=== PATIENT | female | born 1980 | race American Indian/Alaskan Native ===

== ENCOUNTER 2016-11-05 08:50 | Emergency (ER) | payer BC, OTHER ==
[2016-11-05 09:02] VITALS: BP 110/90
--- NOTE | 2016-11-05 09:22 | EDM.PDOC ---
ED HPI GENERAL MEDICAL PROBLEM - General Chief Complaint: Back Pain or Injury Stated Complaint: [id number] BACK PAIN Time Seen by Provider: 11/05/16 09:16 Source of Information: Reports: Patient, Old Records, RN History Limitations: Reports: No Limitations - History of Present Illness INITIAL COMMENTS - FREE TEXT/NARRATIVE: "Lower lumbar and the middle. I can't get the cramps to go away, started yesterday when I got out of bed." Having low back pain with radiation down left buttock to left posterior thigh. She has seen a surgeon at [facility] in [facility] where she was advised to have an L4 fusion. She says her surgeon said that ice or heat could exacerbate the pain. No bowel or bladder problems. She took both Vicodin and Tramedol this morning. Describes muscle spasms. Pain worsened with movement. Has had fusion on the right L4 at [facility] and seems to describe an anterior / posterior approach. 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 Medication(s) (Vicodine and Tramedol) Lower Back Pain Score (Numeric/FACES): 3 - Related Data Allergies Allergy/AdvReac Type Severity Reaction Status Date / Time morphine Allergy Rash Verified 11/05/16 09:02 Home Meds: Home Meds Acetaminophen [Tylenol Extra Strength] 1,000 mg PO TID PRN #30 tab 12/06/14 [Rx] traMADol HCl [Tramadol HCl] 50 mg PO ASDIRECTED PRN 02/27/15 [History] Hydrocodone/Acetaminophen [Lorcet 5-325 mg Tablet] 1 each PO ASDIRECTED PRN [History] Past Medical History HEENT History: Reports: Impaired Vision Other HEENT History: wears glasses 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, preeclampsia current 2014 Respiratory History: Reports: None Other Gastrointestinal History: abdominal hernia Genitourinary History: Reports: None Other OB/BYN History: limited prenataal care 7 , 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 Musculoskeletal History: Reports: None Neurological History: Reports: None Psychiatric History: Reports: None Endocrine/Metabolic History: Reports: None Hematologic History: Reports: None Immunologic History: Reports: None Oncologic (Cancer) History: Reports: None Dermatologic History: Reports: None - Infectious Disease History Infectious Disease History: Reports: Chicken Pox - Past Surgical History Head Surgeries/Procedures: Reports: None Social & Family History - Tobacco Use Smoking Status *Q: Current Every Day Smoker Years of Tobacco use: 3 Packs/Tins Daily: 0.5 Used Tobacco, but Quit: No Month Tobacco Last Used: 11/24/2014 Second Hand Smoke Exposure: No - Caffeine Use Caffeine Use: Reports: Coffee, Soda - Alcohol Use Days Per Week of Alcohol Use: 0 - Recreational Drug Use Recreational Drug Use: No - Living Situation & Occupation Living situation: Reports: with Family Occupation: Unemployed ED ROS GENERAL - Review of Systems Review Of Systems: See Below Constitutional: Reports: No Symptoms HEENT: Reports: No Symptoms Respiratory: Reports: No Symptoms (no other comment) GI/Abdominal: Reports: No Symptoms. Denies: Stool Incontinence : Denies: Incontinence Skin: Reports: No Symptoms Neurological: Reports: Difficulty Walking. Denies: Headache, Weakness Psychiatric: Reports: No Symptoms Hematologic/Lymphatic: Reports: No Symptoms Immunologic: Reports: No Symptoms ED EXAM,LOWER BACK PAIN/INJURY - Physical Exam Exam: See Below Exam Limited By: No Limitations General Appearance: Alert, WD/WN, No Apparent Distress Eye Exam: Bilateral Eye: Normal Inspection Head: Atraumatic Back Exam: Decreased Range of Motion, Muscle Spasm, Paraspinal Tenderness, Vertebral Tenderness, Other (AROM to 10 degrees flexion, extension, side bending. decreased sensation to light touch Left leg throghout and on left thigh posterior). No: Full Range of Motion Extremities: Normal Inspection, No Pedal Edema. No: Non-Tender Course - Vital Signs Last Recorded V/S: Last Vital Signs Temp 97.8 F 11/05/16 08:56 Pulse 73 11/05/16 08:56 Resp 16 11/05/16 08:56 BP 110/90 11/05/16 08:56 Pulse Ox 100 11/05/16 08:56 Departure - Departure Time of Disposition: 09:44 Disposition: Home, Self-Care 01 Condition: good Clinical Impression: Sciatica Qualifiers: Laterality: left Qualified Code(s): M54.32 - Sciatica, left side - Discharge Information Instructions: Back Injury Prevention, [id number], Pain Medicine Instructions , [id number], Back Pain, Adult, [id number] Additional Instructions: Take Flexeril 10 mg tablet three times a day as needed for back spasms. 30 tablets prescribed. See your doctor this coming 7-10 days
== END 2016-11-05 09:52 | disposition home or self-care (01) ==
LOC: DL.ED 08:50
DX: M54.32 Sciatica, left side (principal); F17.210 Nicotine dependence, cigarettes, uncomplicated; Z79.899 Other long term (current) drug therapy; H54.7 Unspecified visual loss
CPT/HCPCS: 99283

== ENCOUNTER 2017-01-27 08:32 | Emergency (ER) | payer OTHER ==
[2017-01-27 09:06] VITALS: BP 148/81
[2017-01-27] MEDS ORDERED: Tetracaine HCl/PF 0.5% 4 ML Bottle EYERT ONE (09:13)
--- NOTE | 2017-01-27 09:13 | EDM.PDOC ---
ED HPI GENERAL MEDICAL PROBLEM - General Chief Complaint: Eye Problems Stated Complaint: RIGHT EYE [phone] Time Seen by Provider: 01/27/17 09:08 Source of Information: Reports: Patient History Limitations: Reports: No Limitations - History of Present Illness INITIAL COMMENTS - FREE TEXT/NARRATIVE: C/O sawdust in Rt eye at about 7PM on Monday01/25/17. Pt flushed the eye with baby shampoo. Now c/o eye irritation and tearing when she tries to open it. Denies purulent drainage. 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 Treatments Right Eye Pain Score (Numeric/FACES): 8 - Related Data Allergies Allergy/AdvReac Type Severity Reaction Status Date / Time morphine Allergy Rash Verified 01/27/17 09:00 Home Meds: Home Meds traMADol HCl [Tramadol HCl] 50 mg PO ASDIRECTED PRN 02/27/15 [History] Acetaminophen [Tylenol Extra Strength] 1,000 mg PO DAILY PRN 01/27/17 [History] Past Medical History HEENT History: Reports: Impaired Vision Other HEENT History: wears glasses 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, preeclampsia current 2014 Respiratory History: Reports: None Other Gastrointestinal History: abdominal hernia Genitourinary History: Reports: None Other OB/BYN History: limited prenataal care 7 , 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 Musculoskeletal History: Reports: None Neurological History: Reports: None Psychiatric History: Reports: None Endocrine/Metabolic History: Reports: None Hematologic History: Reports: None Immunologic History: Reports: None Oncologic (Cancer) History: Reports: None Dermatologic History: Reports: None - Infectious Disease History Infectious Disease History: Reports: Chicken Pox - Past Surgical History Head Surgeries/Procedures: Reports: None Social & Family History - Family History Family Medical History: Noncontributory - Tobacco Use Smoking Status *Q: Current Every Day Smoker Years of Tobacco use: 4 Packs/Tins Daily: 0.5 Used Tobacco, but Quit: No Month Tobacco Last Used: 11/24/2014 Second Hand Smoke Exposure: No - Caffeine Use Caffeine Use: Reports: Coffee, Soda - Alcohol Use Days Per Week of Alcohol Use: 0 - Recreational Drug Use Recreational Drug Use: No - Living Situation & Occupation Living situation: Reports: with Family Occupation: Unemployed ED ROS GENERAL - Review of Systems Review Of Systems: ROS reveals no pertinent complaints other than HPI. ED EXAM GENERAL W FULL EYE - Physical Exam Exam: See Below Exam Limited By: No Limitations General Appearance: Alert, WD/WN, No Apparent Distress, Obese Eye Exam: Right Eye: Conjunctival Injection, Corneal Abrasion, Normal Fundi, Left Eye: Normal Inspection, Bilateral Eye: EOMI, PERRL Eyelids: Right: Lid Everted for Exam, Bilateral: Normal Appearance Conjunctiva & Sclera: Right: Injected, Left: Normal Appearance Cornea Exam: Right: Corneal Abrasion, Examined with Flourescein, Left: Normal Appearance Extraocular Movements: Bilateral: Intact Pupils: Normal Accommodation Pupillary Size: Bilateral: 3 mm Pupillary Reaction: Bilateral: Brisk Anterior Chamber: Right: Normal Appearance Ears: Normal External Exam, Hearing Grossly Normal Nose: Normal Inspection Throat/Mouth: Normal Inspection Head: Atraumatic, Normocephalic Respiratory/Chest: No Respiratory Distress Neurological: Alert, Oriented, CN II-XII Intact, Normal Cognition, Normal Gait, No Motor/Sensory Deficits Psychiatric: Normal Affect, Normal Mood Skin Exam: Warm, Dry, Intact, Normal Color, No Rash ED EYE w/ Add Procedure - Eye Procedure Alcaine Drops Administered: Yes Eye FB Removal: Other (no FB present) Antibiotic Oinment/Drps Admin: Right Eye Progress: Rt eye pressure patch applied for comfort. Course - Vital Signs Last Recorded V/S: Last Vital Signs Temp 36.3 C 01/27/17 08:56 Pulse 71 01/27/17 08:56 Resp 16 01/27/17 08:56 BP 148/81 H 01/27/17 09:06 Pulse Ox 100 01/27/17 08:56 - Orders/Labs/Meds Meds: Medications Discontinued Medications Generic Name Dose Route Start Last Admin Trade Name Freq PRN Reason Stop Dose Admin Fluorescein Sodium 1 mg 01/27/17 09:14 01/27/17 09:22 Ful-Carly EYERT 01/27/17 09:15 1 mg ONETIME ONE Administration Gentamicin Sulfate 1 ml 01/27/17 09:14 01/27/17 09:21 Garamycin 0.3% Ophth Soln EYERT 01/27/17 09:15 1 ml ONETIME ONE Administration Ibuprofen 800 mg 01/27/17 09:32 Motrin PO 01/27/17 09:33 ONETIME ONE Tetracaine HCl 1 ml 01/27/17 09:13 01/27/17 09:22 Tetracaine 0.5% Steri-Unit Stephanie EYERT 01/27/17 09:14 1 ml ONETIME ONE Administration Tramadol HCl 50 mg 01/27/17 09:32 Ultram PO 01/27/17 09:33 ONETIME ONE Departure - Departure Time of Disposition: 09:34 Disposition: Home, Self-Care 01 Condition: Good Clinical Impression: Corneal abrasion Qualifiers: Encounter type: initial encounter Laterality: right Qualified Code(s): S05.01XA - Injury of conjunctiva and corneal abrasion without foreign body, right eye, initial encounter - Discharge Information Instructions: Corneal Abrasion, Tofo-[id number] Forms: ED Department Discharge Additional Instructions: Gentamicin ophthalmic solution 0.3%: 1 drop into right eye four times a day for 5 days. Follow up in eye clinic in 1 to 2 days for recheck.
[2017-01-27] MEDS ORDERED: Gentamicin 0.3% Ophth Soln 5 ML Bottle EYERT ONE (09:14)
[2017-01-27] MEDS ORDERED: Fluorescein 1 MG Ophth Strip EYERT ONE (09:14)
[2017-01-27] MEDS ORDERED: traMADol 50 MG Tab PO ONE (09:32)
[2017-01-27] MEDS ORDERED: Ibuprofen 800 MG Tab PO ONE (09:32)
== END 2017-01-27 09:48 | disposition home or self-care (01) ==
LOC: DL.ED 08:32
DX: S05.01XA Injury of conjunctiva and corneal abrasion without foreign body, right eye, initial encounter (principal); F17.210 Nicotine dependence, cigarettes, uncomplicated; Z79.899 Other long term (current) drug therapy; Z88.5 Allergy status to narcotic agent; Z98.890 Other specified postprocedural states; W45.8XXA Other foreign body or object entering through skin, initial encounter
CPT/HCPCS: 99283; A9270

== ENCOUNTER 2017-11-26 14:51 | Emergency (ER) | payer OTHER ==
--- NOTE | 2017-11-26 15:09 | EDM.PDOC ---
ED HPI GENERAL MEDICAL PROBLEM - General Chief Complaint: Eye Problems Stated Complaint: LEFT EYE, SOMETHING IN IT Time Seen by Provider: 11/26/17 15:08 Source of Information: Reports: Patient, RN, RN Notes Reviewed History Limitations: Reports: No Limitations - History of Present Illness INITIAL COMMENTS - FREE TEXT/NARRATIVE: Pt c/o dust or dirt got into left eye yesterday while shaking out a rug. Pt states she rubbed the eye, and today it's worse. Denies any other injury. 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, Other Medication(s) Left Eye Pain Score (Numeric/FACES): 9 - Related Data Allergies Allergy/AdvReac Type Severity Reaction Status Date / Time morphine Allergy Rash Verified 01/27/17 09:00 Home Meds: Home Meds traMADol HCl [Tramadol HCl] 50 mg PO ASDIRECTED PRN 02/27/15 [History] Acetaminophen [Tylenol Extra Strength] 1,000 mg PO DAILY PRN 01/27/17 [History] Past Medical History HEENT History: Reports: Impaired Vision Other HEENT History: wears glasses 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, preeclampsia current 2014 Respiratory History: Reports: None Other Gastrointestinal History: abdominal hernia Genitourinary History: Reports: None Other OB/BYN History: limited prenataal care 7 , 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 Musculoskeletal History: Reports: None Neurological History: Reports: None Psychiatric History: Reports: None Endocrine/Metabolic History: Reports: None Hematologic History: Reports: None Immunologic History: Reports: None Oncologic (Cancer) History: Reports: None Dermatologic History: Reports: None - Infectious Disease History Infectious Disease History: Reports: Chicken Pox - Past Surgical History Head Surgeries/Procedures: Reports: None Social & Family History - Family History Family Medical History: Noncontributory - Caffeine Use Caffeine Use: Reports: Coffee, Soda - Living Situation & Occupation Living situation: Reports: with Family Occupation: Unemployed ED ROS GENERAL - Review of Systems Review Of Systems: ROS reveals no pertinent complaints other than HPI. ED EXAM GENERAL W FULL EYE - Physical Exam Exam: See Below Exam Limited By: No Limitations General Appearance: Alert, WD/WN, No Apparent Distress Eye Exam: Right Eye: Normal Inspection, Left Eye: Conjunctival Injection, Corneal Abrasion, Bilateral Eye: EOMI, Normal Fundi, PERRL Eyelids: Bilateral: Normal Appearance Conjunctiva & Sclera: Right: Normal Appearance, Left: Injected Cornea Exam: Left: Corneal Abrasion, Examined with Flourescein Extraocular Movements: Bilateral: Intact Pupils: Normal Accommodation Pupillary Size: Bilateral: 3 mm Pupillary Reaction: Bilateral: Brisk Anterior Chamber: Bilateral: Normal Appearance Head: Atraumatic, Normocephalic Respiratory/Chest: No Respiratory Distress Cardiovascular: Regular Rate, Rhythm, Tachycardia Neurological: Alert, Oriented, CN II-XII Intact, No Motor/Sensory Deficits Psychiatric: Anxious Skin Exam: Warm, Dry, Intact, Normal Color, No Rash ED EYE w/ Add Procedure - Eye Procedure Alcaine Drops Administered: Yes Eye FB Removal: no Removal w/ Cotton Swab, no Removal w/ Needle, no Other Antibiotic Oinment/Drps Admin: Left Eye Progress: No FB present in left eye. Course - Vital Signs Last Recorded V/S: Last Vital Signs Temp 36.9 C 11/26/17 15:10 Pulse 111 H 11/26/17 15:10 Resp 20 11/26/17 15:10 BP 149/78 H 11/26/17 15:10 Pulse Ox 100 11/26/17 15:10 - Orders/Labs/Meds Meds: Medications Discontinued Medications Generic Name Dose Route Start Last Admin Trade Name Caseyq PRN Reason Stop Dose Admin Fluorescein Sodium 1 mg 11/26/17 15:30 11/26/17 16:05 Ful-Carly EYELF 11/26/17 15:31 1 mg ONETIME ONE Administration Gentamicin Sulfate 1 ml 11/26/17 15:30 11/26/17 16:05 Garamycin 0.3% Ophth Soln EYELF 11/26/17 15:31 1 ml ONETIME ONE Administration Ibuprofen 800 mg 11/26/17 15:33 11/26/17 16:05 Motrin PO 11/26/17 15:34 800 mg ONETIME ONE Administration Tetracaine HCl 1 ml 11/26/17 15:29 11/26/17 16:05 Tetracaine 0.5% Steri-Unit Stephanie EYELF 11/26/17 15:30 1 ml ONETIME ONE Administration Departure - Departure Time of Disposition: 16:21 Disposition: Home, Self-Care 01 Condition: Good Clinical Impression: Corneal abrasion Qualifiers: Encounter type: initial encounter Laterality: left Qualified Code(s): S05.02XA - Injury of conjunctiva and corneal abrasion without foreign body, left eye, initial encounter - Discharge Information Instructions: Corneal Abrasion, [id number] Forms: ED Department Discharge Additional Instructions: Rx: Tylenol Codeine No.3 *Do not drive while under the influence of this medication. Rx: Ibuprofen 600mg *Take with food. Gentamicin Ophthalmic Solution 0.3%: 1 drop in left eye four times a day for 5 days. Do not rub your eye. Follow up at the eye clinic in 1 to 2 days for recheck.
[2017-11-26 15:12] VITALS: BP 149/78
[2017-11-26] MEDS ORDERED: Tetracaine HCl/PF 0.5% 4 ML Bottle EYELF ONE (15:29)
[2017-11-26] MEDS ORDERED: Fluorescein 1 MG Ophth Strip EYELF ONE (15:30)
[2017-11-26] MEDS ORDERED: Gentamicin 0.3% Ophth Soln 5 ML Bottle EYELF ONE (15:30)
[2017-11-26] MEDS ORDERED: Ibuprofen 800 MG Tab PO ONE (15:33)
== END 2017-11-26 16:29 | disposition home or self-care (01) ==
LOC: DL.ED 14:51
DX: S05.02XA Injury of conjunctiva and corneal abrasion without foreign body, left eye, initial encounter (principal); Z88.5 Allergy status to narcotic agent; Z79.899 Other long term (current) drug therapy; X58.XXXA Exposure to other specified factors, initial encounter
CPT/HCPCS: 99283; A9270

== ENCOUNTER 2018-03-30 19:39 | Emergency (ER) | payer OTHER ==
--- NOTE | 2018-03-30 20:28 | EDM.PDOC ---
ED HPI GENERAL MEDICAL PROBLEM - General Chief Complaint: Respiratory Problem Stated Complaint: CHEST,HARD TO BREATH [id number] Time Seen by Provider: 03/30/18 20:10 Source of Information: Reports: Patient History Limitations: Reports: No Limitations - History of Present Illness INITIAL COMMENTS - FREE TEXT/NARRATIVE: C/o of severe sore throat burning, cough, vomiting for one week. Spouse states whole family has had similar symptoms past week but she has been the worst. Denies hx asthma, smoker 1/2 pack per day. Bp meds in past, none for past couple of years. Tolerating liquids today. Decreased appetite, frequent dry cough, , ears itch. Tramadol this am for throat pain Bilateral Chest Pain Score (Numeric/FACES): 6 - Related Data Allergies Allergy/AdvReac Type Severity Reaction Status Date / Time morphine Allergy Rash Verified 03/30/18 19:46 Home Meds: Home Meds traMADol HCl [Tramadol HCl] 50 mg PO ASDIRECTED PRN 02/27/15 [History] RX: Acetaminophen [Tylenol Extra Strength] 1,000 mg PO DAILY PRN 01/27/17 [ History] Past Medical History HEENT History: Reports: Impaired Vision Other HEENT History: wears glasses 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, preeclampsia current 2014 Respiratory History: Reports: None Other Gastrointestinal History: abdominal hernia Genitourinary History: Reports: None 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 , 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 Musculoskeletal History: Reports: None Neurological History: Reports: None Psychiatric History: Reports: None Endocrine/Metabolic History: Reports: None Hematologic History: Reports: None Immunologic History: Reports: None Oncologic (Cancer) History: Reports: None Dermatologic History: Reports: None - Infectious Disease History Infectious Disease History: Reports: Chicken Pox - Past Surgical History Head Surgeries/Procedures: Reports: None Social & Family History - Family History Family Medical History: Noncontributory - Tobacco Use Smoking Status *Q: Current Every Day Smoker Years of Tobacco use: 7 Packs/Tins Daily: 0.4 Second Hand Smoke Exposure: Yes - Caffeine Use Caffeine Use: Reports: Coffee, Soda - Recreational Drug Use Recreational Drug Use: No - Living Situation & Occupation Living situation: Reports: with Family Occupation: Unemployed ED ROS GENERAL - Review of Systems Review Of Systems: ROS reveals no pertinent complaints other than HPI. ED EXAM, GENERAL - Physical Exam Exam: See Below Exam Limited By: No Limitations General Appearance: Alert, Moderate Distress Eye Exam: Bilateral Eye: EOMI Ears: Normal External Exam Ear Exam: Bilateral Ear: TM Dull Nose: Normal Inspection Throat/Mouth: Inflammation, Other (poor dentation). No: Normal Voice (hoarse) Head: Atraumatic, Normocephalic Neck: Full Range of Motion, Lymphadenopathy (L), Lymphadenopathy (R) (mild) Respiratory/Chest: Decreased Breath Sounds (bases), Other (frequent dry cough). No: Rales, Rhonchi, Retractions Cardiovascular: Regular Rate, Rhythm GI/Abdominal: Normal Bowel Sounds, Soft Back Exam: Normal Inspection Extremities: Normal Inspection, Normal Range of Motion Neurological: Alert, Oriented, Normal Cognition Psychiatric: Anxious Skin Exam: Warm, Dry, Intact EKG INTERPRETATION EKG Date: 03/30/18 Rhythm: NSR Course - Vital Signs Last Recorded V/S: Last Vital Signs Temp 98.5 F 03/30/18 21:30 Pulse 90 03/30/18 22:11 Resp 20 03/30/18 22:11 BP 177/97 H 03/30/18 22:11 Pulse Ox 92 L 03/30/18 22:11 - Orders/Labs/Meds Orders: Active Orders 24 hr Category Date Time Status EKG Documentation Completion [RC] URGENT Care 03/30/18 21:11 Active RT Aerosol Therapy [RC] ASDIRECTED Care 03/30/18 20:37 Active CULTURE STREP A CONFIRMATION [] Stat Lab 03/30/18 20:33 Results STREP SCRN A RAPID W CULT CONF [] Stat Lab 03/30/18 20:33 Results Labs: Laboratory Tests 03/30/18 03/30/18 03/30/18 Range/Units 20:35 20:35 20:35 WBC 7.1 (5.0-10.0) 10^3/uL RBC 4.84 (4.2-5.4) 10^6/uL Hgb 11.7 L (12.0-16.0) g/dL Hct 35.3 L (37.0-47.0) % MCV 72.9 L D (80-100) fL MCH 24.2 L (27.0-34.0) pg MCHC 33.1 (33.0-35.0) g/dL Plt Count 182 (150-450) 10^3/uL Neut % (Auto) 77.9 H (42.2-75.2) % Lymph % (Auto) 12.8 L (20.5-50.1) % [place] % (Auto) 8.9 H (2-8) % Eos % (Auto) 0.3 L (1.0-3.0) % Baso % (Auto) 0.1 (0.0-1.0) % D-Dimer, Quantitative 1720 H (0-400) ng/mL Sodium 142 (135-145) mmol/L Potassium 2.5 L (3.6-5.0) mmol/L Chloride 109 (101-111) mmol/L Carbon Dioxide 23.0 (21.0-31.0) mmol/L Anion Gap 12.5 BUN 12 (7-18) mg/dL Creatinine 0.4 L (0.6-1.3) mg/dL Est Cr Clr Drug Dosing 161.44 mL/min Estimated GFR (MDRD) > 60 BUN/Creatinine Ratio 30.00 Glucose 117 H (74-105) mg/dL Calcium 8.0 L (8.4-10.2) mg/dl Total Bilirubin 0.6 (0.2-1.0) mg/dL AST 32 (10-42) IU/L ALT 25 (10-60) IU/L Alkaline Phosphatase 238 H (42-121) IU/L CK-MB (CK-2) (0.4-4.7) ng/mL Troponin I (0.00-0.02) ng/ml Total Protein 7.1 (6.7-8.2) g/dl Albumin 2.9 L (3.2-5.5) g/dl Globulin 4.2 Albumin/Globulin Ratio 0.69 Urine Color (YELLOW) Urine Appearance (CLEAR) Urine pH (5.0-9.0) Ur Specific [place] (1.005-1.030) Urine Protein (NEGATIVE) Urine Glucose (UA) (NEGATIVE) Urine Ketones (NEGATIVE) Urine Occult Blood (NEGATIVE) Urine Nitrite (NEGATIVE) Urine Bilirubin (NEGATIVE) Urine Urobilinogen (0.2-1.0) mg/dL Ur Leukocyte Esterase (NEGATIVE) Urine RBC /HPF Urine WBC (0-5/HPF) /HPF Ur Epithelial Cells /HPF Urine Bacteria (0-FEW/HPF) /HPF Urine HCG, Qual Urine Opiates Screen (NEGATIVE) Ur Oxycodone Screen (NEGATIVE) Urine Methadone Screen (NEGATIVE) Ur Barbiturates Screen (NEGATIVE) U Tricyclic Antidepress (NEGATIVE) Ur Phencyclidine Scrn (NEGATIVE) Ur Amphetamine Screen (NEGATIVE) U Methamphetamines Scrn (NEGATIVE) Urine MDMA Screen (NEGATIVE) U Benzodiazepines Scrn (NEGATIVE) Urine Cocaine Screen (NEGATIVE) U Marijuana (THC) Screen (NEGATIVE) 03/30/18 03/30/18 03/30/18 Range/Units 20:35 20:35 21:12 WBC (5.0-10.0) 10^3/uL RBC (4.2-5.4) 10^6/uL Hgb (12.0-16.0) g/dL Hct (37.0-47.0) % MCV (80-100) fL MCH (27.0-34.0) pg MCHC (33.0-35.0) g/dL Plt Count (150-450) 10^3/uL Neut % (Auto) (42.2-75.2) % Lymph % (Auto) (20.5-50.1) % [place] % (Auto) (2-8) % Eos % (Auto) (1.0-3.0) % Baso % (Auto) (0.0-1.0) % D-Dimer, Quantitative (0-400) ng/mL Sodium (135-145) mmol/L Potassium (3.6-5.0) mmol/L Chloride (101-111) mmol/L Carbon Dioxide (21.0-31.0) mmol/L Anion Gap BUN (7-18) mg/dL Creatinine (0.6-1.3) mg/dL Est Cr Clr Drug Dosing mL/min Estimated GFR (MDRD) BUN/Creatinine Ratio Glucose (74-105) mg/dL Calcium (8.4-10.2) mg/dl Total Bilirubin (0.2-1.0) mg/dL AST (10-42) IU/L ALT (10-60) IU/L Alkaline Phosphatase (42-121) IU/L CK-MB (CK-2) 1.90 (0.4-4.7) ng/mL Troponin I 0.03 H* (0.00-0.02) ng/ml Total Protein (6.7-8.2) g/dl Albumin (3.2-5.5) g/dl Globulin Albumin/Globulin Ratio Urine Color Yellow (YELLOW) Urine Appearance Cloudy (CLEAR) Urine pH 6.0 (5.0-9.0) Ur Specific [place] >= 1.030 (1.005-1.030) Urine Protein 30 H (NEGATIVE) Urine Glucose (UA) Negative (NEGATIVE) Urine Ketones Negative (NEGATIVE) Urine Occult Blood Large H (NEGATIVE) Urine Nitrite Negative (NEGATIVE) Urine Bilirubin Negative (NEGATIVE) Urine Urobilinogen 4.0 H (0.2-1.0) mg/dL Ur Leukocyte Esterase Moderate H (NEGATIVE) Urine RBC 10-20 H /HPF Urine WBC Packed H (0-5/HPF) /HPF Ur Epithelial Cells Moderate H /HPF Urine Bacteria Many H (0-FEW/HPF) /HPF Urine HCG, Qual Urine Opiates Screen (NEGATIVE) Ur Oxycodone Screen (NEGATIVE) Urine Methadone Screen (NEGATIVE) Ur Barbiturates Screen (NEGATIVE) U Tricyclic Antidepress (NEGATIVE) Ur Phencyclidine Scrn (NEGATIVE) Ur Amphetamine Screen (NEGATIVE) U Methamphetamines Scrn (NEGATIVE) Urine MDMA Screen (NEGATIVE) U Benzodiazepines Scrn (NEGATIVE) Urine Cocaine Screen (NEGATIVE) U Marijuana (THC) Screen (NEGATIVE) 03/30/18 03/30/18 Range/Units 21:12 21:12 WBC (5.0-10.0) 10^3/uL RBC (4.2-5.4) 10^6/uL Hgb (12.0-16.0) g/dL Hct (37.0-47.0) % MCV (80-100) fL MCH (27.0-34.0) pg MCHC (33.0-35.0) g/dL Plt Count (150-450) 10^3/uL Neut % (Auto) (42.2-75.2) % Lymph % (Auto) (20.5-50.1) % [place] % (Auto) (2-8) % Eos % (Auto) (1.0-3.0) % Baso % (Auto) (0.0-1.0) % D-Dimer, Quantitative (0-400) ng/mL Sodium (135-145) mmol/L Potassium (3.6-5.0) mmol/L Chloride (101-111) mmol/L Carbon Dioxide (21.0-31.0) mmol/L Anion Gap BUN (7-18) mg/dL Creatinine (0.6-1.3) mg/dL Est Cr Clr Drug Dosing mL/min Estimated GFR (MDRD) BUN/Creatinine Ratio Glucose (74-105) mg/dL Calcium (8.4-10.2) mg/dl Total Bilirubin (0.2-1.0) mg/dL AST (10-42) IU/L ALT (10-60) IU/L Alkaline Phosphatase (42-121) IU/L CK-MB (CK-2) (0.4-4.7) ng/mL Troponin I (0.00-0.02) ng/ml Total Protein (6.7-8.2) g/dl Albumin (3.2-5.5) g/dl Globulin Albumin/Globulin Ratio Urine Color (YELLOW) Urine Appearance (CLEAR) Urine pH (5.0-9.0) Ur Specific [place] (1.005-1.030) Urine Protein (NEGATIVE) Urine Glucose (UA) (NEGATIVE) Urine Ketones (NEGATIVE) Urine Occult Blood (NEGATIVE) Urine Nitrite (NEGATIVE) Urine Bilirubin (NEGATIVE) Urine Urobilinogen (0.2-1.0) mg/dL Ur Leukocyte Esterase (NEGATIVE) Urine RBC /HPF Urine WBC (0-5/HPF) /HPF Ur Epithelial Cells /HPF Urine Bacteria (0-FEW/HPF) /HPF Urine HCG, Qual Negative Urine Opiates Screen Positive H (NEGATIVE) Ur Oxycodone Screen Negative (NEGATIVE) Urine Methadone Screen Negative (NEGATIVE) Ur Barbiturates Screen Negative (NEGATIVE) U Tricyclic Antidepress Negative (NEGATIVE) Ur Phencyclidine Scrn Negative (NEGATIVE) Ur Amphetamine Screen Negative (NEGATIVE) U Methamphetamines Scrn Negative (NEGATIVE) Urine MDMA Screen Negative (NEGATIVE) U Benzodiazepines Scrn Negative (NEGATIVE) Urine Cocaine Screen Negative (NEGATIVE) U Marijuana (THC) Screen Negative (NEGATIVE) Meds: Medications Discontinued Medications Generic Name Dose Route Start Last Admin Trade Name Freq PRN Reason Stop Dose Admin Albuterol/Ipratropium 3 ml 03/30/18 20:37 03/30/18 20:44 Duoneb 3.0-0.5 Mg/3 Ml NEB 03/30/18 20:38 3 ml ONETIME ONE Administration Benzocaine/Menthol 1 lozenge 03/30/18 22:33 03/30/18 22:59 Cepacol Sore Throat MUCMEM 03/30/18 22:34 1 lozenge ONETIME ONE Administration Fentanyl 25 mcg 03/30/18 21:32 03/30/18 21:37 Sublimaze IVPUSH 03/30/18 21:33 25 mcg ONETIME ONE Administration Fentanyl 25 mcg 03/30/18 22:17 03/30/18 23:13 Sublimaze IVPUSH 03/30/18 22:18 25 mcg ONETIME ONE Administration Sodium Chloride 1,000 mls @ 999 mls/hr 03/30/18 20:35 03/30/18 20:44 Normal Saline IV 03/30/18 21:35 999 mls/hr .BOLUS ONE Administration Potassium Chloride 20 meq/ 100 mls @ 50 mls/hr 03/30/18 21:11 03/30/18 21:39 Premix IV 03/30/18 23:10 50 mls/hr ONETIME ONE Administration Sodium Chloride 1,000 mls @ 500 mls/hr 03/30/18 22:12 03/30/18 22:13 Normal Saline IV 03/31/18 00:11 500 mls/hr .BOLUS ONE Administration Iopamidol 100 ml 03/30/18 22:16 03/30/18 22:26 Isovue-370 (76%) IVPUSH 03/30/18 22:17 100 ml ONETIME ONE Administration Ketorolac Tromethamine 30 mg 03/30/18 20:51 03/30/18 21:19 Toradol IVPUSH 03/30/18 20:52 30 mg ONETIME ONE Administration Methylprednisolone Sodium Succinate 40 mg 03/30/18 21:07 03/30/18 21:17 Solu-Medrol IVPUSH 03/30/18 21:08 40 mg ONETIME ONE Administration - Re-Assessments/Exams Free Text/Narrative Re-Assessment/Exam: 03/30/18 23:15 Dr. Rizvi accepting of patient for further evaluation. Tx via [facility] in stable condition. Departure - Departure Time of Disposition: 23:10 Disposition: DC/Tfer to Acute Hospital 02 Condition: Good Clinical Impression: Elevated d-dimer, Hypokalemia UTI (urinary tract infection) Qualifiers: Urinary tract infection type: site unspecified Hematuria presence: with hematuria Qualified Code(s): N39.0 - Urinary tract infection, site not specified RML pneumonia Qualifiers: Pneumonia type: due to unspecified organism Qualified Code(s): J18.1 - Lobar pneumonia, unspecified organism - Discharge Information Referrals: PCP,None [Primary Care Provider] - Forms: ED Department Discharge - My Orders Last 24 Hours: My Active Orders 03/30/18 20:33 CULTURE STREP A CONFIRMATION [RM] Stat STREP SCRN A RAPID W CULT CONF [RM] Stat 03/30/18 20:37 RT Aerosol Therapy [RC] ASDIRECTED 03/30/18 21:11 EKG Documentation Completion [RC] URGENT - Assessment/Plan Last 24 Hours: My Active Orders 03/30/18 20:33 CULTURE STREP A CONFIRMATION [RM] Stat STREP SCRN A RAPID W CULT CONF [RM] Stat 03/30/18 20:37 RT Aerosol Therapy [RC] ASDIRECTED 03/30/18 21:11 EKG Documentation Completion [RC] URGENT
[2018-03-30] MEDS ORDERED: Sodium Chloride 0.9% 1,000 ML IV ONE ×2 (20:35→22:12)
[2018-03-30] MEDS ORDERED: Albuterol/Ipratropium 3.0-0.5 MG/3 ML Neb Soln NEB ONE (20:37)
[2018-03-30] MEDS ORDERED: Ketorolac 30 MG/ML SDV IVPUSH ONE (20:51)
[2018-03-30] MEDS ORDERED: methylPREDNISolone Sodium Succinate 40 MG/1 ML SDV IVPUSH ONE (21:07)
[2018-03-30 21:09] LABS: ANION GAP 12.5; CHLORIDE,CL 109 mmol/L (101-111); SODIUM,NA 142 mmol/L (135-145)
[2018-03-30] MEDS ORDERED: Potassium Chloride 20 MEQ in Premix Bag 1 BAG IV ONE (21:11)
[2018-03-30] MEDS ORDERED: fentaNYL 100 MCG/2 ML SDV IVPUSH ONE ×2 (21:32→22:17)
[2018-03-30 22:12] VITALS: BP 177/97
[2018-03-30] MEDS ORDERED: Iopamidol 755 Mg/ML 100 ML Bottle IVPUSH ONE (22:16)
[2018-03-30] MEDS ORDERED: Benzocaine/Cetylpyridinium/Menthol Lozenge MUCMEM ONE (22:33)
== END 2018-03-30 23:14 ==
LOC: DL.ED 19:39
DX: J18.9 Pneumonia, unspecified organism (principal); N39.0 Urinary tract infection, site not specified; F17.210 Nicotine dependence, cigarettes, uncomplicated; R79.1 Abnormal coagulation profile; E87.6 Hypokalemia; Z88.5 Allergy status to narcotic agent; Z79.899 Other long term (current) drug therapy
CPT/HCPCS: 36415; 71046; 71260; 80053; 80305; 81001; 81025; 82553; 84484; 85025; 85379; 87081; 87430; 87804; 93005; 96361; 96365; 96366; 96375; 96376; 99285; A9270; J1885; J2920; J3010; J3480; J7030; Q9967; J7620-GY

== ENCOUNTER 2018-07-22 20:16 | Emergency (ER) | payer OTHER ==
[2018-07-22 20:32] VITALS: BP 161/95
--- NOTE | 2018-07-22 20:50 | EDM.PDOC ---
ED HPI GENERAL MEDICAL PROBLEM - General Chief Complaint: Chest Pain Stated Complaint: CHEST HURTS Time Seen by Provider: 07/22/18 20:48 Source of Information: Reports: Patient History Limitations: Reports: No Limitations - History of Present Illness INITIAL COMMENTS - FREE TEXT/NARRATIVE: was @ [facility] 8 days ago for 1 week from pneumonia, started cough again all day and chest hurts now. has been using neb and not helping. 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, Other (see below) Other Treatments CHEMICALS FERMENTATION OPERATOR: Neb treatment Anterior Chest Pain Score (Numeric/FACES): 6 - Related Data Allergies Allergy/AdvReac Type Severity Reaction Status Date / Time morphine Allergy Rash Verified 07/22/18 20:38 Home Meds: Home Meds traMADol HCl [Tramadol HCl] 50 mg PO ASDIRECTED PRN 02/27/15 [History] Acetaminophen [Tylenol Extra Strength] 1,000 mg PO DAILY PRN 01/27/17 [History] Metoprolol Succinate [Toprol Xl] 50 mg PO BID 06/17/18 [History] methIMAzole [Methimazole] 10 mg PO DAILY 06/17/18 [History] Benzonatate 100 mg PO TID PRN 07/22/18 [History] Past Medical History HEENT History: Reports: Impaired Vision Other HEENT History: wears glasses 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, preeclampsia current 2014 Respiratory History: Reports: None Other Gastrointestinal History: abdominal hernia Genitourinary History: Reports: None 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 , 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 Musculoskeletal History: Reports: None Neurological History: Reports: None Psychiatric History: Reports: None Endocrine/Metabolic History: Reports: None Hematologic History: Reports: None Immunologic History: Reports: None Oncologic (Cancer) History: Reports: None Dermatologic History: Reports: None - Infectious Disease History Infectious Disease History: Reports: Chicken Pox - Past Surgical History Head Surgeries/Procedures: Reports: None Social & Family History - Family History Family Medical History: Noncontributory - Tobacco Use Smoking Status *Q: Former Smoker Used Tobacco, but Quit: No - Caffeine Use Caffeine Use: Reports: Soda - Recreational Drug Use Recreational Drug Use: No - Living Situation & Occupation Living situation: Reports: with Family Occupation: Unemployed ED ROS GENERAL - Review of Systems Review Of Systems: ROS reveals no pertinent complaints other than HPI. ED EXAM, GENERAL - Physical Exam Exam: See Below Exam Limited By: No Limitations General Appearance: Alert, WD/WN, Mild Distress, Other (episodic cough spasms) Ears: Hearing Grossly Normal Throat/Mouth: Normal Voice, No Airway Compromise Head: Atraumatic Neck: Non-Tender, Full Range of Motion Respiratory/Chest: No Accessory Muscle Use, Rhonchi, Wheezing. No: Decreased Breath Sounds Cardiovascular: Regular Rate, Rhythm GI/Abdominal: Soft, Non-Tender Neurological: Alert, Oriented, Normal Cognition Psychiatric: Flat Affect Skin Exam: Warm, Dry, Normal Color Lymphatic: No Adenopathy Course - Vital Signs Last Recorded V/S: Last Vital Signs Temp 37.1 C 07/22/18 20:31 Pulse 111 H 07/22/18 20:31 Resp 28 H 07/22/18 20:31 BP 161/95 H 07/22/18 20:31 Pulse Ox 96 07/22/18 20:36 - Orders/Labs/Meds Orders: Active Orders 24 hr Category Date Time Status EKG 12 Lead [EKG Documentation Completion] [RC] URGENT Care 07/22/18 20:41 Active RT Aerosol Therapy [RC] ASDIRECTED Care 07/22/18 21:17 Active Chest 1V Frontal [CR] Urgent Exams 07/22/18 20:44 Taken CULTURE BLOOD [BC] Routine Lab 07/22/18 21:05 Received CULTURE BLOOD [BC] Stat Lab 07/22/18 20:35 Results Labs: Laboratory Tests 07/22/18 07/22/18 07/22/18 Range/Units 20:35 20:35 20:35 WBC 7.5 (5.0-10.0) 10^3/uL RBC 4.54 (4.2-5.4) 10^6/uL Hgb 11.5 L D (12.0-16.0) g/dL Hct 36.6 L (37.0-47.0) % MCV 80.6 (80-100) fL MCH 25.3 L (27.0-34.0) pg MCHC 31.4 L (33.0-35.0) g/dL Plt Count 284 (150-450) 10^3/uL Neut % (Auto) 85.8 H (42.2-75.2) % Lymph % (Auto) 7.0 L (20.5-50.1) % [place] % (Auto) 5.6 (2-8) % Eos % (Auto) 1.3 (1.0-3.0) % Baso % (Auto) 0.3 (0.0-1.0) % Sodium 139 (135-145) mmol/L Potassium 3.0 L (3.6-5.0) mmol/L Chloride 107 (101-111) mmol/L Carbon Dioxide 22.0 (21.0-31.0) mmol/L Anion Gap 13.0 BUN 11 (7-18) mg/dL Creatinine 0.6 (0.6-1.3) mg/dL Est Cr Clr Drug Dosing 112.15 mL/min Estimated GFR (MDRD) > 60 BUN/Creatinine Ratio 18.33 Glucose 121 H (74-105) mg/dL Lactic Acid 2.1 (0.5-2.2) mmol/L Calcium 8.6 (8.4-10.2) mg/dl Total Bilirubin 0.7 (0.2-1.0) mg/dL AST 26 (10-42) IU/L ALT 16 (10-60) IU/L Alkaline Phosphatase 108 (42-121) IU/L Troponin I < 0.02 (0.00-0.02) ng/ml Total Protein 6.8 (6.7-8.2) g/dl Albumin 3.1 L (3.2-5.5) g/dl Globulin 3.7 Albumin/Globulin Ratio 0.84 Meds: Medications Discontinued Medications Generic Name Dose Route Start Last Admin Trade Name Freq PRN Reason Stop Dose Admin Albuterol/Ipratropium 3 ml 07/22/18 21:16 07/22/18 21:28 Duoneb 3.0-0.5 Mg/3 Ml NEB 07/22/18 21:17 3 ml ONETIME ONE Administration Methylprednisolone Sodium Succinate 125 mg 07/22/18 21:16 07/22/18 21:28 Solu-Medrol IVPUSH 07/22/18 21:17 125 mg ONETIME ONE Administration Ondansetron HCl 4 mg 07/22/18 21:24 07/22/18 21:33 Zofran IV 07/22/18 21:25 4 mg ONETIME ONE Administration - Re-Assessments/Exams Free Text/Narrative Re-Assessment/Exam: 07/22/18 21:56 re-exam; s/p duoneb + solu = minimally better. case discussed with [facility] who rec' [facility] due to pt's complex PMx. case discussed with Dr Carbone @ [facility] who kindly accepted pt. Departure - Departure Time of Disposition: 21:57 Disposition: DC/Tfer to [facility] 02 Condition: Fair Clinical Impression: COPD exacerbation Pneumonia Qualifiers: Pneumonia type: due to unspecified organism Laterality: right Lung location: upper lobe of lung Qualified Code(s): J18.1 - Lobar pneumonia, unspecified organism - Discharge Information Forms: Interfacility Transfer EMTALA - My Orders Last 24 Hours: My Active Orders 07/22/18 20:35 CULTURE BLOOD [BC] Stat 07/22/18 20:41 EKG 12 Lead [EKG Documentation Completion] [RC] URGENT 07/22/18 20:44 Chest 1V Frontal [CR] Urgent 07/22/18 21:05 CULTURE BLOOD [BC] Routine 07/22/18 21:17 RT Aerosol Therapy [RC] ASDIRECTED - Assessment/Plan Last 24 Hours: My Active Orders 07/22/18 20:35 CULTURE BLOOD [BC] Stat 07/22/18 20:41 EKG 12 Lead [EKG Documentation Completion] [RC] URGENT 07/22/18 20:44 Chest 1V Frontal [CR] Urgent 07/22/18 21:05 CULTURE BLOOD [BC] Routine 07/22/18 21:17 RT Aerosol Therapy [RC] ASDIRECTED
[2018-07-22 21:12] LABS: CHLORIDE,CL 107 mmol/L (101-111); SODIUM,NA 139 mmol/L (135-145)
[2018-07-22] MEDS ORDERED: methylPREDNISolone Sodium Succinate 125 MG/2 ML SDV IVPUSH ONE (21:16)
[2018-07-22] MEDS ORDERED: Albuterol/Ipratropium 3.0-0.5 MG/3 ML Neb Soln NEB ONE (21:16)
[2018-07-22] MEDS ORDERED: Ondansetron 4 MG/2 ML SDV IV ONE (21:24)
[2018-07-22] MEDS ORDERED: cefTRIAXone 500 MG Vial IVPUSH ONE (22:03)
== END 2018-07-22 22:31 ==
LOC: DL.ED 20:16
DX: J18.1 Lobar pneumonia, unspecified organism (principal); J44.1 Chronic obstructive pulmonary disease with (acute) exacerbation; Z88.5 Allergy status to narcotic agent; Z79.899 Other long term (current) drug therapy; Z87.891 Personal history of nicotine dependence
CPT/HCPCS: 36415; 71045; 80053; 83605; 84484; 85025; 87040; 93005; 96374; 96375; 99285; J0696; J2405; J2930; J7620-GY

== ENCOUNTER 2018-08-17 04:51 | Inpatient (IN) | payer OTHER ==
[2018-08-17] MEDS ORDERED: Albuterol/Ipratropium 3.0-0.5 MG/3 ML Neb Soln NEB ONE (04:55)
[2018-08-17] MEDS ORDERED: methylPREDNISolone Sodium Succinate 125 MG/2 ML SDV IVPUSH ONE (04:56)
[2018-08-17 05:36] LABS: ANION GAP 12.5; CHLORIDE,CL 104 mmol/L (101-111); SODIUM,NA 135 mmol/L (135-145)
[2018-08-17] MEDS ORDERED: Aspirin 81 MG Tab.Chew PO ONE (05:36)
[2018-08-17 05:41] LABS: BASE EXCESS ARTERIAL -3 mmol/L ((-2)-(+3)); BICARBONATE,ARTERIAL 20.9 mmol/L (22-26); O2 DELIVERY DEVICE NON REBR MASK; O2 SATURATION ARTERIAL 89 % (95-100); PCO2 ARTERIAL 35 mmHg (35-45); PO2 ARTERIAL 57 mmHg (70-100)
--- NOTE | 2018-08-17 05:43 | EDM.PDOC ---
ED HPI GENERAL MEDICAL PROBLEM - General Chief Complaint: Respiratory Problem Stated Complaint: AMBULANCE-UNKNOWN Time Seen by Provider: 08/17/18 05:00 Source of Information: Reports: Patient History Limitations: Reports: No Limitations - History of Present Illness INITIAL COMMENTS - FREE TEXT/NARRATIVE: ED via [facility] with c/o SOB with chest feeling heavy, Hx COPD. Brething problem started 2 days ago has been using albuterol neb every hour. Had appointment today in clinic but daughter took car so unable to make it to clinic. Woke to go to bathroom and shaky and SOB. Recent cough nonproductive. Non smoker but smoker in home. NO GI sx. Feeding tube removed 2 weeks ago and swallow study normal. Patient does report somedifficulty swallowing some food. 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, IV/IO - Related Data Allergies Allergy/AdvReac Type Severity Reaction Status Date / Time morphine Allergy Rash Verified 08/17/18 05:17 Home Meds: Home Meds traMADol HCl [Tramadol HCl] 50 mg PO ASDIRECTED PRN 02/27/15 [History] Acetaminophen [Tylenol Extra Strength] 1,000 mg PO DAILY PRN 01/27/17 [History] Metoprolol Succinate [Toprol Xl] 50 mg PO BID 06/17/18 [History] methIMAzole [Methimazole] 10 mg PO DAILY 06/17/18 [History] Benzonatate 100 mg PO TID PRN 07/22/18 [History] Past Medical History HEENT History: Reports: Impaired Vision Other HEENT History: wears glasses 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, preeclampsia current 2014 Respiratory History: Reports: None Other Gastrointestinal History: abdominal hernia Genitourinary History: Reports: None 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 , 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 Musculoskeletal History: Reports: None Neurological History: Reports: None Psychiatric History: Reports: None Endocrine/Metabolic History: Reports: None, Other (See Below) (hyperthyroidism) Hematologic History: Reports: None Immunologic History: Reports: None Oncologic (Cancer) History: Reports: None (g) Dermatologic History: Reports: None - Infectious Disease History Infectious Disease History: Reports: Chicken Pox - Past Surgical History Head Surgeries/Procedures: Reports: None Social & Family History - Family History Family Medical History: Noncontributory - Tobacco Use Smoking Status *Q: Former Smoker Used Tobacco, but Quit: No - Caffeine Use Caffeine Use: Reports: Coffee, Soda - Recreational Drug Use Recreational Drug Use: No - Living Situation & Occupation Living situation: Reports: with Family Occupation: Unemployed ED ROS GENERAL - Review of Systems Review Of Systems: ROS reveals no pertinent complaints other than HPI. Constitutional: Reports: No Symptoms HEENT: Reports: No Symptoms Respiratory: Reports: No Symptoms, Shortness of Breath, Wheezing, Cough. Denies : Sputum Cardiovascular: Reports: Orthopnea, Palpitations GI/Abdominal: Reports: Difficulty Swallowing Musculoskeletal: Reports: No Symptoms Skin: Reports: Other (healing g tube site) Neurological: Reports: No Symptoms Psychiatric: Reports: Anxiety ED EXAM, GENERAL - Physical Exam Exam: See Below Exam Limited By: No Limitations General Appearance: Alert, Moderate Distress Ears: Normal External Exam, Normal TMs Nose: Normal Inspection Throat/Mouth: Normal Inspection Head: Atraumatic, Normocephalic Neck: Normal Inspection, Supple, Full Range of Motion Respiratory/Chest: Respiratory Distress, Rales, Wheezing, Accessory Muscle Use Cardiovascular: Normal Peripheral Pulses, Regular Rate, Rhythm GI/Abdominal: Normal Bowel Sounds, Soft, Non-Tender, No Organomegaly, No Distention Back Exam: Normal Inspection Extremities: Normal Inspection Neurological: Alert, Oriented, CN II-XII Intact, Normal Cognition Psychiatric: Normal Affect Skin Exam: Warm, Dry, Intact, Normal Color, No Rash, Wound/Incision (g tube site healing, no drainage). No: Increased Warmth EKG INTERPRETATION Rhythm: NSR Course - Vital Signs Last Recorded V/S: Last Vital Signs Temp 98.5 F 08/17/18 05:34 Pulse 95 08/17/18 05:34 Resp 22 H 08/17/18 05:34 BP 141/83 H 08/17/18 05:34 Pulse Ox 94 L 08/17/18 05:42 - Orders/Labs/Meds Orders: Active Orders 24 hr Category Date Time Status EKG 12 Lead [EKG Documentation Completion] [RC] URGENT Care 08/17/18 04:45 Active RT Aerosol Therapy [RC] ASDIRECTED Care 08/17/18 04:56 Active Chest 1V Frontal [CR] Urgent Exams 08/17/18 04:43 Taken CULTURE BLOOD [BC] Stat Lab 08/17/18 05:10 Received CULTURE BLOOD [BC] Stat Lab 08/17/18 06:10 Results Blood Culture x2 Reflex Set [OM.PC] Stat Oth 08/17/18 04:57 Ordered Labs: Laboratory Tests 08/17/18 08/17/18 08/17/18 Range/Units 05:10 05:10 05:10 WBC 6.9 (5.0-10.0) 10^3/uL RBC 4.80 (4.2-5.4) 10^6/uL Hgb 11.6 L (12.0-16.0) g/dL Hct 37.5 (37.0-47.0) % MCV 78.1 L (80-100) fL MCH 24.2 L (27.0-34.0) pg MCHC 30.9 L (33.0-35.0) g/dL Plt Count 200 D (150-450) 10^3/uL Neut % (Auto) 85.5 H (42.2-75.2) % Lymph % (Auto) 9.0 L (20.5-50.1) % [place] % (Auto) 4.8 (2-8) % Eos % (Auto) 0.4 L (1.0-3.0) % Baso % (Auto) 0.3 (0.0-1.0) % D-Dimer, Quantitative (0-400) ng/mL ABG pH (7.35-7.45) ABG pCO2 (35-45) mmHg ABG pO2 (70-100) mmHg ABG HCO3 (22-26) mmol/L ABG O2 Saturation (95-100) % ABG Base Excess ((-2)-(+3)) mmol/L Gomez Test O2 Delivery Device Oxygen Flow Rate Sodium 135 (135-145) mmol/L Potassium 3.5 L (3.6-5.0) mmol/L Chloride 104 (101-111) mmol/L Carbon Dioxide 22.0 (21.0-31.0) mmol/L Anion Gap 12.5 BUN 13 (7-18) mg/dL Creatinine 0.6 (0.6-1.3) mg/dL Est Cr Clr Drug Dosing 103.10 mL/min Estimated GFR (MDRD) > 60 BUN/Creatinine Ratio 21.66 Glucose 118 H (74-105) mg/dL Lactic Acid (0.5-2.2) mmol/L Calcium 8.2 L (8.4-10.2) mg/dl Magnesium 1.6 L (1.8-2.5) mg/dL Total Bilirubin 0.7 (0.2-1.0) mg/dL AST 22 (10-42) IU/L ALT 13 (10-60) IU/L Alkaline Phosphatase 108 (42-121) IU/L CK-MB (CK-2) 1.80 (0.4-4.7) ng/mL Troponin I < 0.02 (0.00-0.02) ng/ml Total Protein 6.8 (6.7-8.2) g/dl Albumin 3.5 (3.2-5.5) g/dl Globulin 3.3 Albumin/Globulin Ratio 1.06 Amylase 22 L (28-100) U/L Lipase 19 L (22-51) U/L TSH, Ultra Sensitive (0.45-5.33) uIu/mL 08/17/18 08/17/18 08/17/18 Range/Units 05:10 05:10 05:10 WBC (5.0-10.0) 10^3/uL RBC (4.2-5.4) 10^6/uL Hgb (12.0-16.0) g/dL Hct (37.0-47.0) % MCV (80-100) fL MCH (27.0-34.0) pg MCHC (33.0-35.0) g/dL Plt Count (150-450) 10^3/uL Neut % (Auto) (42.2-75.2) % Lymph % (Auto) (20.5-50.1) % [place] % (Auto) (2-8) % Eos % (Auto) (1.0-3.0) % Baso % (Auto) (0.0-1.0) % D-Dimer, Quantitative 234 (0-400) ng/mL ABG pH (7.35-7.45) ABG pCO2 (35-45) mmHg ABG pO2 (70-100) mmHg ABG HCO3 (22-26) mmol/L ABG O2 Saturation (95-100) % ABG Base Excess ((-2)-(+3)) mmol/L Gomez Test O2 Delivery Device Oxygen Flow Rate Sodium (135-145) mmol/L Potassium (3.6-5.0) mmol/L Chloride (101-111) mmol/L Carbon Dioxide (21.0-31.0) mmol/L Anion Gap BUN (7-18) mg/dL Creatinine (0.6-1.3) mg/dL Est Cr Clr Drug Dosing mL/min Estimated GFR (MDRD) BUN/Creatinine Ratio Glucose (74-105) mg/dL Lactic Acid 1.3 (0.5-2.2) mmol/L Calcium (8.4-10.2) mg/dl Magnesium (1.8-2.5) mg/dL Total Bilirubin (0.2-1.0) mg/dL AST (10-42) IU/L ALT (10-60) IU/L Alkaline Phosphatase (42-121) IU/L CK-MB (CK-2) (0.4-4.7) ng/mL Troponin I (0.00-0.02) ng/ml Total Protein (6.7-8.2) g/dl Albumin (3.2-5.5) g/dl Globulin Albumin/Globulin Ratio Amylase (28-100) U/L Lipase (22-51) U/L TSH, Ultra Sensitive < 0.02 L (0.45-5.33) uIu/mL 08/17/18 Range/Units 05:40 WBC (5.0-10.0) 10^3/uL RBC (4.2-5.4) 10^6/uL Hgb (12.0-16.0) g/dL Hct (37.0-47.0) % MCV (80-100) fL MCH (27.0-34.0) pg MCHC (33.0-35.0) g/dL Plt Count (150-450) 10^3/uL Neut % (Auto) (42.2-75.2) % Lymph % (Auto) (20.5-50.1) % [place] % (Auto) (2-8) % Eos % (Auto) (1.0-3.0) % Baso % (Auto) (0.0-1.0) % D-Dimer, Quantitative (0-400) ng/mL ABG pH 7.40 (7.35-7.45) ABG pCO2 35 (35-45) mmHg ABG pO2 57 L (70-100) mmHg ABG HCO3 20.9 L (22-26) mmol/L ABG O2 Saturation 89 L (95-100) % ABG Base Excess -3 L ((-2)-(+3)) mmol/L Gomez Test pos rr O2 Delivery Device Non rebr mask Oxygen Flow Rate 3 Sodium (135-145) mmol/L Potassium (3.6-5.0) mmol/L Chloride (101-111) mmol/L Carbon Dioxide (21.0-31.0) mmol/L Anion Gap BUN (7-18) mg/dL Creatinine (0.6-1.3) mg/dL Est Cr Clr Drug Dosing mL/min Estimated GFR (MDRD) BUN/Creatinine Ratio Glucose (74-105) mg/dL Lactic Acid (0.5-2.2) mmol/L Calcium (8.4-10.2) mg/dl Magnesium (1.8-2.5) mg/dL Total Bilirubin (0.2-1.0) mg/dL AST (10-42) IU/L ALT (10-60) IU/L Alkaline Phosphatase (42-121) IU/L CK-MB (CK-2) (0.4-4.7) ng/mL Troponin I (0.00-0.02) ng/ml Total Protein (6.7-8.2) g/dl Albumin (3.2-5.5) g/dl Globulin Albumin/Globulin Ratio Amylase (28-100) U/L Lipase (22-51) U/L TSH, Ultra Sensitive (0.45-5.33) uIu/mL Meds: Medications Discontinued Medications Generic Name Dose Route Start Last Admin Trade Name Freq PRN Reason Stop Dose Admin Albuterol/Ipratropium 3 ml 08/17/18 04:55 08/17/18 05:02 Duoneb 3.0-0.5 Mg/3 Ml NEB 08/17/18 04:56 3 ml ONETIME ONE Administration Aspirin 324 mg 08/17/18 05:36 08/17/18 05:42 Aspirin PO 08/17/18 05:37 324 mg ONETIME ONE Administration Methylprednisolone Sodium Succinate 125 mg 08/17/18 04:56 08/17/18 05:02 Solu-Medrol IVPUSH 08/17/18 04:57 125 mg ONETIME ONE Administration - Radiology Interpretation Free Text/Narrative:: Name: VALENTINA WILKES Age: 38Years F Date: 08/17/2018 SSN: -- : [id number] Study: XR CHEST 1 VIEW Requesting Physician: ALEIDA CHIN Images: 1 Addl Studies: Provided Clinical History: Contrast: Contrast Medium: Contrast Amount: Contrast Method: CONFIDENTIALITY STATEMENT This report is intended only for use by the referring physician, and only in accordance with law. If you received this in error, call [phone]. Page 1 of 1 EXAM: XR Chest, 1 View EXAM DATE/TIME: 08/17/2018 5:34 AM CLINICAL HISTORY: 38 years old, female; Signs and symptoms; Dyspnea TECHNIQUE: XR of the chest, 1 view. COMPARISON: CR Chest 1V Frontal 07/22/2018 8:51 PM FINDINGS: Lungs: Opacities are again seen within the right upper lobe medially and, to a lesser, the left upper lobe, findings suggesting a bilateral pneumonitis. Pleural space: Unremarkable. No pleural effusion. No pneumothorax. Heart/Mediastinum: Unremarkable. No cardiomegaly. Bones/joints: Unremarkable. IMPRESSION: Bilateral upper lobe pneumonitis. Thank you for allowing us to participate in the care of your patient. Dictated and Authenticated by: Benedict Padron MD 08/17/2018 5:59 AM Central Time ([place] & [place]) - Re-Assessments/Exams Free Text/Narrative Re-Assessment/Exam: 08/17/18 06:59 Mild improvement following neb, continued fine wheeze. Sauturation 94% at [address] Carla [facility] Hospitalist accepting patient for COPD exacerbation. Departure - Departure Time of Disposition: 07:02 Disposition: Admitted As Inpatient 64 Condition: Fair Clinical Impression: COPD exacerbation, Hypoxia, Hyperthyroidism Pneumonia of both upper lobes Qualifiers: Pneumonia type: due to unspecified organism Qualified Code(s): J18.1 - Lobar pneumonia, unspecified organism - Discharge Information *PRESCRIPTION DRUG MONITORING PROGRAM REVIEWED*: Not Applicable *COPY OF PRESCRIPTION DRUG MONITORING REPORT IN PATIENT CEDRIC: Not Applicable Forms: ED Department Discharge - My Orders Last 24 Hours: My Active Orders 08/17/18 04:43 Chest 1V Frontal [CR] Urgent 08/17/18 04:45 EKG 12 Lead [EKG Documentation Completion] [RC] URGENT 08/17/18 04:56 RT Aerosol Therapy [RC] ASDIRECTED 08/17/18 04:57 Blood Culture x2 Reflex Set [OM.PC] Stat 08/17/18 05:10 CULTURE BLOOD [BC] Stat 08/17/18 06:10 CULTURE BLOOD [BC] Stat - Assessment/Plan Last 24 Hours: My Active Orders 08/17/18 04:43 Chest 1V Frontal [CR] Urgent 08/17/18 04:45 EKG 12 Lead [EKG Documentation Completion] [RC] URGENT 08/17/18 04:56 RT Aerosol Therapy [RC] ASDIRECTED 08/17/18 04:57 Blood Culture x2 Reflex Set [OM.PC] Stat 08/17/18 05:10 CULTURE BLOOD [BC] Stat 08/17/18 06:10 CULTURE BLOOD [BC] Stat
[2018-08-17 05:44] LABS: ALLEN TEST pos RR
[2018-08-17 05:45] LABS: O2 FLOW RATE 3
[2018-08-17] MEDS ORDERED: LORazepam 2 MG/ML Syringe IVPUSH ONE (06:41)
[2018-08-17] MEDS ORDERED: Sodium Chloride 0.9% 10 ML Syringe FLUSH PRN ×3 (08:18)
[2018-08-17] MEDS ORDERED: Acetaminophen 500 MG Tab PO PRN (08:21)
[2018-08-17] MEDS: Albuterol 0.083% 2.5 MG/3 ML Neb Soln NEB PRN ×2 (08:34→21:08)
[2018-08-17] MEDS: predniSONE 20 MG Tab PO SCH (09:16)
[2018-08-17] MEDS: Azithromycin 250 MG Tab PO SCH (09:16)
[2018-08-17] MEDS: Metoprolol Succinate 50 MG Tab.ER PO SCH ×2 (09:17→21:24)
--- NOTE | 2018-08-17 10:53 | PCM.HP ---
H&P History of Present Illness - General Date of Service: 08/17/18 Admit Problem/Dx: Admission Diagnosis/Problem Admission Diagnosis/Problem Chronic obstructive pulmonary disease Source of Information: Patient History Limitations: Reports: No Limitations - History of Present Illness Initial Comments - Free Text/Narative: 38 yo F with PMH of COPD who p/w with SOB, cough. SOB and cough has been ongoing for 2 days Progressively worse Cough is productive of yellowish sputum No CP, no abd pain, no n/v, no fever, no leg swelling Previous cigarette smoker, quit in Mar 2018. 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, preeclampsia current 2014 Respiratory History: Reports: COPD, Pneumonia, Recurrent Other Gastrointestinal History: abdominal hernia Genitourinary History: Reports: None Other OB/BYN History: limited prenataal care 7 , 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 Musculoskeletal History: Reports: None Neurological History: Reports: None Psychiatric History: Reports: None Endocrine/Metabolic History: Reports: None Hematologic History: Reports: None Immunologic History: Reports: None Oncologic (Cancer) History: Reports: None Dermatologic History: Reports: None - Infectious Disease History Infectious Disease History: Reports: Chicken Pox - Past Surgical History Head Surgeries/Procedures: Reports: None Social & Family History - Family History Family Medical History: Noncontributory - Tobacco Use Smoking Status *Q: Former Smoker Used Tobacco, but Quit: Yes Month/Year Tobacco Last Used: March 2018 - Caffeine Use Caffeine Use: Reports: Coffee - Recreational Drug Use Recreational Drug Use: No - Living Situation & Occupation Living situation: Reports: with Family Occupation: Unemployed H&P Review of Systems - Review of Systems: Review Of Systems: ROS reveals no pertinent complaints other than HPI. Exam - Exam Exam: See Below - Vital Signs Vital Signs: Last Vital Signs Temp 37.6 C 08/17/18 07:23 Pulse 91 08/17/18 09:17 Resp 22 H 08/17/18 07:23 BP 128/78 08/17/18 09:17 Pulse Ox 94 L 08/17/18 07:23 Weight: 73.21 kg - Exam General: Alert, Oriented HEENT: Conjunctiva Clear Neck: Supple Lungs: Wheezing Cardiovascular: Regular Rate, Regular Rhythm GI/Abdominal Exam: Normal Bowel Sounds - Patient Data Lab Results Last 24 hrs: Laboratory Results - last 24 hr 08/17/18 08/17/18 08/17/18 Range/Units 05:10 05:10 05:10 WBC 6.9 (5.0-10.0) 10^3/uL RBC 4.80 (4.2-5.4) 10^6/uL Hgb 11.6 L (12.0-16.0) g/dL Hct 37.5 (37.0-47.0) % MCV 78.1 L (80-100) fL MCH 24.2 L (27.0-34.0) pg MCHC 30.9 L (33.0-35.0) g/dL Plt Count 200 D (150-450) 10^3/uL Neut % (Auto) 85.5 H (42.2-75.2) % Lymph % (Auto) 9.0 L (20.5-50.1) % [place] % (Auto) 4.8 (2-8) % Eos % (Auto) 0.4 L (1.0-3.0) % Baso % (Auto) 0.3 (0.0-1.0) % D-Dimer, Quantitative (0-400) ng/mL ABG pH (7.35-7.45) ABG pCO2 (35-45) mmHg ABG pO2 (70-100) mmHg ABG HCO3 (22-26) mmol/L ABG O2 Saturation (95-100) % ABG Base Excess ((-2)-(+3)) mmol/L Gomez Test O2 Delivery Device Oxygen Flow Rate Sodium 135 (135-145) mmol/L Potassium 3.5 L (3.6-5.0) mmol/L Chloride 104 (101-111) mmol/L Carbon Dioxide 22.0 (21.0-31.0) mmol/L Anion Gap 12.5 BUN 13 (7-18) mg/dL Creatinine 0.6 (0.6-1.3) mg/dL Est Cr Clr Drug Dosing 103.10 mL/min Estimated GFR (MDRD) > 60 BUN/Creatinine Ratio 21.66 Glucose 118 H (74-105) mg/dL Lactic Acid (0.5-2.2) mmol/L Calcium 8.2 L (8.4-10.2) mg/dl Magnesium 1.6 L (1.8-2.5) mg/dL Total Bilirubin 0.7 (0.2-1.0) mg/dL AST 22 (10-42) IU/L ALT 13 (10-60) IU/L Alkaline Phosphatase 108 (42-121) IU/L CK-MB (CK-2) 1.80 (0.4-4.7) ng/mL Troponin I < 0.02 (0.00-0.02) ng/ml Total Protein 6.8 (6.7-8.2) g/dl Albumin 3.5 (3.2-5.5) g/dl Globulin 3.3 Albumin/Globulin Ratio 1.06 Amylase 22 L (28-100) U/L Lipase 19 L (22-51) U/L TSH, Ultra Sensitive (0.45-5.33) uIu/mL 08/17/18 08/17/18 08/17/18 Range/Units 05:10 05:10 05:10 WBC (5.0-10.0) 10^3/uL RBC (4.2-5.4) 10^6/uL Hgb (12.0-16.0) g/dL Hct (37.0-47.0) % MCV (80-100) fL MCH (27.0-34.0) pg MCHC (33.0-35.0) g/dL Plt Count (150-450) 10^3/uL Neut % (Auto) (42.2-75.2) % Lymph % (Auto) (20.5-50.1) % [place] % (Auto) (2-8) % Eos % (Auto) (1.0-3.0) % Baso % (Auto) (0.0-1.0) % D-Dimer, Quantitative 234 (0-400) ng/mL ABG pH (7.35-7.45) ABG pCO2 (35-45) mmHg ABG pO2 (70-100) mmHg ABG HCO3 (22-26) mmol/L ABG O2 Saturation (95-100) % ABG Base Excess ((-2)-(+3)) mmol/L Gomez Test O2 Delivery Device Oxygen Flow Rate Sodium (135-145) mmol/L Potassium (3.6-5.0) mmol/L Chloride (101-111) mmol/L Carbon Dioxide (21.0-31.0) mmol/L Anion Gap BUN (7-18) mg/dL Creatinine (0.6-1.3) mg/dL Est Cr Clr Drug Dosing mL/min Estimated GFR (MDRD) BUN/Creatinine Ratio Glucose (74-105) mg/dL Lactic Acid 1.3 (0.5-2.2) mmol/L Calcium (8.4-10.2) mg/dl Magnesium (1.8-2.5) mg/dL Total Bilirubin (0.2-1.0) mg/dL AST (10-42) IU/L ALT (10-60) IU/L Alkaline Phosphatase (42-121) IU/L CK-MB (CK-2) (0.4-4.7) ng/mL Troponin I (0.00-0.02) ng/ml Total Protein (6.7-8.2) g/dl Albumin (3.2-5.5) g/dl Globulin Albumin/Globulin Ratio Amylase (28-100) U/L Lipase (22-51) U/L TSH, Ultra Sensitive < 0.02 L (0.45-5.33) uIu/mL 08/17/18 Range/Units 05:40 WBC (5.0-10.0) 10^3/uL RBC (4.2-5.4) 10^6/uL Hgb (12.0-16.0) g/dL Hct (37.0-47.0) % MCV (80-100) fL MCH (27.0-34.0) pg MCHC (33.0-35.0) g/dL Plt Count (150-450) 10^3/uL Neut % (Auto) (42.2-75.2) % Lymph % (Auto) (20.5-50.1) % [place] % (Auto) (2-8) % Eos % (Auto) (1.0-3.0) % Baso % (Auto) (0.0-1.0) % D-Dimer, Quantitative (0-400) ng/mL ABG pH 7.40 (7.35-7.45) ABG pCO2 35 (35-45) mmHg ABG pO2 57 L (70-100) mmHg ABG HCO3 20.9 L (22-26) mmol/L ABG O2 Saturation 89 L (95-100) % ABG Base Excess -3 L ((-2)-(+3)) mmol/L Gomez Test pos rr O2 Delivery Device Non rebr mask Oxygen Flow Rate 3 Sodium (135-145) mmol/L Potassium (3.6-5.0) mmol/L Chloride (101-111) mmol/L Carbon Dioxide (21.0-31.0) mmol/L Anion Gap BUN (7-18) mg/dL Creatinine (0.6-1.3) mg/dL Est Cr Clr Drug Dosing mL/min Estimated GFR (MDRD) BUN/Creatinine Ratio Glucose (74-105) mg/dL Lactic Acid (0.5-2.2) mmol/L Calcium (8.4-10.2) mg/dl Magnesium (1.8-2.5) mg/dL Total Bilirubin (0.2-1.0) mg/dL AST (10-42) IU/L ALT (10-60) IU/L Alkaline Phosphatase (42-121) IU/L CK-MB (CK-2) (0.4-4.7) ng/mL Troponin I (0.00-0.02) ng/ml Total Protein (6.7-8.2) g/dl Albumin (3.2-5.5) g/dl Globulin Albumin/Globulin Ratio Amylase (28-100) U/L Lipase (22-51) U/L TSH, Ultra Sensitive (0.45-5.33) uIu/mL Result Diagrams: 08/17/18 05:10 08/17/18 05:10 [place] Results Last 24 hrs: Microbiology 08/17/18 06:10 Anaerobic Blood Culture - Final Blood - Venous - Lab Draw Problem List Initiated/Reviewed/Updated: Yes Orders Last 24hrs: Active Orders 24 hr Category Date Time Status Patient Status [ADT] Routine ADT 08/17/18 08:18 Active Ambulate [RC] ASDIRECTED Care 08/17/18 08:18 Active Height and Weight [RC] DAILY Care 08/17/18 08:18 Active Overnight Pulse Oximetry [RC] Click to Edit Care 08/17/18 08:19 Active Oxygen Therapy [RC] PRN Care 08/17/18 08:18 Active Peripheral IV Care [RC] Care 08/17/18 08:18 Active RT Aerosol Therapy [RC] ASDIRECTED Care 08/17/18 04:56 Active RT Aerosol Therapy [RC] ASDIRECTED Care 08/17/18 08:20 Active Up With Assistance [RC] ASDIRECTED Care 08/17/18 08:18 Active VTE/DVT Education [RC] PER UNIT ROUTINE Care 08/17/18 08:18 Active Vital Signs [RC] Q4H Care 08/17/18 08:18 Active Regular Diet [DIET] Diet 08/17/18 Breakfast Active Chest 1V Frontal [CR] Urgent Exams 08/17/18 04:43 Taken CULTURE BLOOD [BC] Stat Lab 08/17/18 05:10 Received CULTURE BLOOD [BC] Stat Lab 08/17/18 06:10 Results FREE T3 [REF] Routine Lab 08/17/18 05:10 Received THYROXINE (T4) [REF] Routine Lab 08/17/18 05:10 Received Acetaminophen [Tylenol Extra Strength] Med 08/17/18 08:21 Active 1,000 mg PO DAILY PRN Albuterol [Proventil Neb Soln] Med 08/17/18 08:20 Active 2.5 mg NEB Q4HRRT PRN Albuterol/Ipratropium [DuoNeb 3.0-0.5 MG/3 ML] Med 08/17/18 13:00 Active 3 ml NEB Q6HRRT Azithromycin [Zithromax] Med 08/17/18 09:00 Active 500 mg PO DAILY Benzonatate [Tessalon Perles] Med 02/22/19 08:21 Active 100 mg PO TID PRN Metoprolol Succinate [Toprol XL] Med 08/17/18 09:00 Active 50 mg PO BID Mometasone/Formoterol [Dulera 100-5 MCG] Med 08/17/18 18:00 Active 2 puff IH BIDRT Sodium Chloride 0.9% [Saline Flush] Med 08/17/18 08:18 Active 10 ml FLUSH ASDIRECTED PRN methIMAzole Med 08/17/18 09:00 Active 10 mg PO DAILY predniSONE Med 08/17/18 08:23 Active 60 mg PO WITHBREAKFAST traMADol [Ultram] Med 08/17/18 08:21 Active 50 mg PO Q6HR PRN Blood Culture x2 Reflex Set [OM.PC] Stat Ot 08/17/18 04:57 Ordered Peripheral IV Insertion Adult [OM.PC] Routine Oth 08/17/18 08:18 Ordered Pulse Oximetry Continuous Monitoring [OM.PC] Routine Oth 08/17/18 08:19 Ordered Saline Lock Insert [OM.PC] Routine Ot 08/17/18 08:18 Ordered Medication Orders Acetaminophen (Tylenol Extra Strength) 1,000 mg PO DAILY PRN PRN Reason: Pain Albuterol (Proventil Neb Soln) 2.5 mg NEB Q4HRRT PRN PRN Reason: Shortness of Breath Last Admin: 08/17/18 08:34 Dose: 2.5 mg Albuterol/Ipratropium (Duoneb 3.0-0.5 Mg/3 Ml) 3 ml NEB Q6HRRT [facility] Azithromycin (Zithromax) 500 mg PO DAILY [facility] Stop: 08/20/18 09:01 Last Admin: 08/17/18 09:16 Dose: 500 mg Benzonatate (Tessalon Perles) 100 mg PO TID PRN PRN Reason: Cough Methimazole (Methimazole) 10 mg PO DAILY [facility] Metoprolol Succinate (Toprol Xl) 50 mg PO BID [facility] Last Admin: 08/17/18 09:17 Dose: 50 mg Mometasone Furoate/Formoterol Fumar (Dulera 100-5 Mcg) 2 puff IH BIDRT [facility] Prednisone (Prednisone) 60 mg PO WITHBREAKFAST [facility] Last Admin: 08/17/18 09:16 Dose: 60 mg Sodium Chloride (Saline Flush) 10 ml FLUSH ASDIRECTED PRN PRN Reason: Keep Vein Open Tramadol HCl (Ultram) 50 mg PO Q6HR PRN PRN Reason: pain Assessment/Plan Comment:: #COPD exacerbation duonebs ATC and albuterol PRN start dulera (LABA/ICS combo) counselled on continue tobacco cessation azithromycin 500 mg daily x 3 days prednisone 60 mg daily x 5 days DVT ppx ambulate patient FC
[2018-08-17] MEDS: Methimazole 5 MG Tab PO SCH (11:59)
[2018-08-17] MEDS: Albuterol/Ipratropium 3.0-0.5 MG/3 ML Neb Soln NEB SCH ×2 (12:57→17:19)
[2018-08-17] MEDS: Formoterol/Mometasone 100-5 MCG 8.8 GM Inhaler IH SCH (18:18)
[2018-08-17] MEDS: traMADol 50 MG Tab PO PRN (18:26)
[2018-08-17] MEDS: Benzonatate 100 MG Cap PO PRN (18:27)
[2018-08-17] MEDS ORDERED: LORazepam 0.5 MG Tab PO ONE (20:55)
[2018-08-18] MEDS: Albuterol/Ipratropium 3.0-0.5 MG/3 ML Neb Soln NEB SCH ×4 (00:42→18:21)
[2018-08-18] MEDS: Benzonatate 100 MG Cap PO PRN ×2 (03:36→09:28)
[2018-08-18] MEDS: Formoterol/Mometasone 100-5 MCG 8.8 GM Inhaler IH SCH ×2 (06:34→18:20)
[2018-08-18] MEDS: predniSONE 20 MG Tab PO SCH (09:19)
[2018-08-18] MEDS: Methimazole 5 MG Tab PO SCH ×3 (09:20→20:59)
[2018-08-18] MEDS: Albuterol 0.083% 2.5 MG/3 ML Neb Soln NEB PRN ×4 (09:20→15:07)
[2018-08-18] MEDS: Azithromycin 250 MG Tab PO SCH (09:21)
[2018-08-18] MEDS: Metoprolol Succinate 50 MG Tab.ER PO SCH ×2 (09:22→20:59)
[2018-08-18] MEDS: traMADol 50 MG Tab PO PRN ×2 (09:28→20:58)
--- NOTE | 2018-08-18 10:13 | PCM.PN ---
- General Info Date of Service: 08/18/18 Admission Dx/Problem (Free Text): Admission Diagnosis/Problem Admission Diagnosis/Problem Chronic obstructive pulmonary disease Subjective Update: 38 yo F admitted with COPD exacerbation Still has considerable SOB this morning. Cough productive of yellowish sputum - Review of Systems General: Denies: Fever HEENT: Reports: No Symptoms Pulmonary: Reports: Shortness of Breath, Cough Cardiovascular: Reports: No Symptoms Gastrointestinal: Reports: No Symptoms Genitourinary: Reports: No Symptoms - Patient Data Vitals - Most Recent: Last Vital Signs Temp 37.3 C 08/18/18 07:00 Pulse 73 08/18/18 09:22 Resp 18 08/18/18 07:00 BP 133/79 08/18/18 09:22 Pulse Ox 97 08/18/18 10:07 Weight - Most Recent: 73.21 kg I&O - Last 24 Hours: Intake & Output 08/17/18 08/18/18 08/18/18 22:59 06:59 14:59 Intake Total 200 Balance 200 Lab Results Last 24 Hours: Laboratory Results - last 24 hr 08/17/18 Range/Units 05:10 Free T3 pg/mL 5.32 H (2.50-3.90) pg/mL Efrain Results Last 24 Hours: Microbiology 08/17/18 06:10 Aerobic Blood Culture - Preliminary Blood - Venous - Lab Draw NO GROWTH AFTER 1 DAY Anaerobic Blood Culture - Final 08/17/18 05:10 Aerobic Blood Culture - Preliminary Blood - Venous NO GROWTH AFTER 1 DAY Anaerobic Blood Culture - Preliminary NO GROWTH AFTER 1 DAY Med Orders - Current: Current Medications Acetaminophen (Tylenol Extra Strength) 1,000 mg PO DAILY PRN PRN Reason: Pain Albuterol (Proventil Neb Soln) 2.5 mg NEB Q4HRRT PRN PRN Reason: Shortness of Breath Last Admin: 08/18/18 10:07 Dose: 2.5 mg Albuterol/Ipratropium (Duoneb 3.0-0.5 Mg/3 Ml) 3 ml NEB Q6HRRT SRINIVASAN Last Admin: 08/18/18 06:34 Dose: 3 ml Azithromycin (Zithromax) 500 mg PO DAILY SRINIVASAN Stop: 08/20/18 09:01 Last Admin: 08/18/18 09:21 Dose: 500 mg Benzonatate (Tessalon Perles) 100 mg PO TID PRN PRN Reason: Cough Last Admin: 08/18/18 09:28 Dose: 100 mg Lorazepam (Ativan) 0.5 mg PO Q8H PRN PRN Reason: Anxiety Methimazole (Methimazole) 10 mg PO TID [facility] Metoprolol Succinate (Toprol Xl) 50 mg PO BID [facility] Last Admin: 08/18/18 09:22 Dose: 50 mg Mometasone Furoate/Formoterol Fumar (Dulera 100-5 Mcg) 2 puff IH BIDRT [facility] Last Admin: 08/18/18 06:34 Dose: 2 inhaler Prednisone (Prednisone) 60 mg PO WITHBREAKFAST [facility] Last Admin: 08/18/18 09:19 Dose: 60 mg Sodium Chloride (Saline Flush) 10 ml FLUSH ASDIRECTED PRN PRN Reason: Keep Vein Open Tramadol HCl (Ultram) 50 mg PO Q6HR PRN PRN Reason: pain Last Admin: 08/18/18 09:28 Dose: 50 mg Discontinued Medications Albuterol/Ipratropium (Duoneb 3.0-0.5 Mg/3 Ml) 3 ml NEB ONETIME ONE Stop: 08/17/18 04:56 Last Admin: 08/17/18 05:02 Dose: 3 ml Aspirin (Aspirin) 324 mg PO ONETIME ONE Stop: 08/17/18 05:37 Last Admin: 08/17/18 05:42 Dose: 324 mg Lorazepam (Ativan) 1 mg IVPUSH ONETIME ONE Stop: 08/17/18 06:42 Last Admin: 08/17/18 06:48 Dose: 1 mg Lorazepam (Ativan) 0.5 mg PO ONETIME ONE Stop: 08/17/18 20:56 Last Admin: 08/17/18 21:14 Dose: 0.5 mg Methimazole (Methimazole) 10 mg PO DAILY [facility] Last Admin: 08/18/18 09:20 Dose: 10 mg Methimazole (Methimazole) 10 mg PO BID [facility] Methylprednisolone Sodium Succinate (Solu-Medrol) 125 mg IVPUSH ONETIME ONE Stop: 08/17/18 04:57 Last Admin: 08/17/18 05:02 Dose: 125 mg - Exam General: Alert, Oriented HEENT: Pupils Equal Neck: Supple Lungs: Wheezing Cardiovascular: Regular Rate, Regular Rhythm GI/Abdominal Exam: Normal Bowel Sounds, Soft - Problem List Review Problem List Initiated/Reviewed/Updated: Yes - My Orders Last 24 Hours: My Active Orders 08/17/18 13:00 Albuterol/Ipratropium [DuoNeb 3.0-0.5 MG/3 ML] 3 ml NEB Q6HRRT 08/17/18 18:00 Mometasone/Formoterol [Dulera 100-5 MCG] 2 puff IH BIDRT 08/17/18 22:55 Communication Order [RC] ONETIME 08/18/18 09:33 Code Status [Resuscitation Status] Routine 08/18/18 09:57 Communication Order [RC] STAT 08/18/18 09:58 LORazepam [Ativan] 0.5 mg PO Q8H PRN 08/18/18 14:00 methIMAzole 10 mg PO TID - Plan Plan:: #COPD exacerbation duonebs ATC and albuterol PRN start dulera (LABA/ICS combo) counselled on continue tobacco cessation azithromycin 500 mg daily x 3 days prednisone 60 mg daily x 5 days If patient doesn't improve, will plan for transfer to tertiary care facility #Hyperthyroidism TSH is low, Free T3 is elevated Increase methimazole to 10 mg tid Follow up on free T4 DVT ppx ambulate patient FC
[2018-08-18] MEDS ORDERED: methylPREDNISolone Sodium Succinate 125 MG/2 ML SDV IVPUSH ONE (10:17)
[2018-08-18] MEDS: LORazepam 0.5 MG Tab PO PRN ×2 (10:41→18:21)
[2018-08-18] MEDS: Enoxaparin 40 MG/0.4 ML Syringe SUBCUT SCH (18:20)
[2018-08-18] MEDS ORDERED: Brimonidine 0.15% Ophth Soln 5 ML Bottle EYERT SCH (21:00)
[2018-08-18] MEDS ORDERED: Methimazole 5 MG Tab PO SCH (21:00)
[2018-08-18] MEDS: BRIMONIDINE 0.15% EYELF SCH (21:00)
[2018-08-18] MEDS: BRIMONIDINE 0.15% EYERT SCH (21:00)
[2018-08-18] MEDS: DORZOLAMIDE 2% EYEBOTH SCH (21:01)
[2018-08-18] MEDS: EYE EYEBOTH SCH (21:01)
[2018-08-19] MEDS: Albuterol/Ipratropium 3.0-0.5 MG/3 ML Neb Soln NEB SCH ×4 (01:11→17:46)
[2018-08-19] MEDS: Formoterol/Mometasone 100-5 MCG 8.8 GM Inhaler IH SCH ×2 (07:40→17:46)
[2018-08-19] MEDS: predniSONE 20 MG Tab PO SCH (07:41)
[2018-08-19] MEDS: Metoprolol Succinate 50 MG Tab.ER PO SCH (08:42)
[2018-08-19] MEDS: EYE EYEBOTH SCH ×2 (08:42→13:05)
[2018-08-19] MEDS: DORZOLAMIDE 2% EYEBOTH SCH ×2 (08:42→13:05)
[2018-08-19] MEDS: Methimazole 5 MG Tab PO SCH ×2 (08:42→13:04)
[2018-08-19] MEDS: Benzonatate 100 MG Cap PO PRN (08:42)
[2018-08-19] MEDS: Azithromycin 250 MG Tab PO SCH (08:42)
[2018-08-19] MEDS: Enoxaparin 40 MG/0.4 ML Syringe SUBCUT SCH (08:43)
[2018-08-19] MEDS: BRIMONIDINE 0.15% EYERT SCH (08:43)
[2018-08-19] MEDS: BRIMONIDINE 0.15% EYELF SCH ×2 (08:43→13:05)
--- NOTE | 2018-08-19 10:42 | PCM.PN ---
- General Info Date of Service: 08/19/18 Admission Dx/Problem (Free Text): Admission Diagnosis/Problem Admission Diagnosis/Problem Chronic obstructive pulmonary disease Subjective Update: 38 yo F admitted with COPD exacerbation SOB is improved O2 req also improved, down to 2L NC no fever, no cp, no urinary symptoms - Review of Systems General: Reports: No Symptoms. Denies: Fever HEENT: Reports: No Symptoms Pulmonary: Reports: Shortness of Breath, Cough Cardiovascular: Reports: No Symptoms Gastrointestinal: Reports: No Symptoms Genitourinary: Reports: No Symptoms - Patient Data Vitals - Most Recent: Last Vital Signs Temp 36.7 C 08/19/18 08:15 Pulse 73 08/19/18 08:42 Resp 18 08/19/18 08:15 BP 124/79 08/19/18 08:42 Pulse Ox 98 08/19/18 08:15 Weight - Most Recent: 59.33 kg I&O - Last 24 Hours: Intake & Output 08/18/18 08/19/18 08/19/18 22:59 06:59 14:59 Intake Total 475 100 Balance 475 100 Lab Results Last 24 Hours: Laboratory Results - last 24 hr 08/17/18 Range/Units 05:10 Thyroxine (T4) 7.1 (4.5-12.0) ug/dL [place] Results Last 24 Hours: Microbiology 08/17/18 06:10 Aerobic Blood Culture - Preliminary Blood - Venous - Lab Draw NO GROWTH AFTER 2 DAYS Anaerobic Blood Culture - Final 08/17/18 05:10 Aerobic Blood Culture - Preliminary Blood - Venous NO GROWTH AFTER 2 DAYS Anaerobic Blood Culture - Preliminary NO GROWTH AFTER 2 DAYS Med Orders - Current: Current Medications Acetaminophen (Tylenol Extra Strength) 1,000 mg PO DAILY PRN PRN Reason: Pain Last Admin: 08/19/18 08:42 Dose: 1,000 mg Albuterol (Proventil Neb Soln) 2.5 mg NEB Q4HRRT PRN PRN Reason: Shortness of Breath Last Admin: 08/18/18 15:07 Dose: 2.5 mg Albuterol/Ipratropium (Duoneb 3.0-0.5 Mg/3 Ml) 3 ml NEB Q6HRRT SRINIVASAN Last Admin: 08/19/18 07:42 Dose: 3 ml Azithromycin (Zithromax) 500 mg PO DAILY SRINIVASAN Stop: 08/20/18 09:01 Last Admin: 08/19/18 08:42 Dose: 500 mg Benzonatate (Tessalon Perles) 100 mg PO TID PRN PRN Reason: Cough Last Admin: 08/19/18 08:42 Dose: 100 mg Brimonidine Tartrate (Alphagan P 0.15% Ophth Soln) 0 ml EYERT BID [facility] Last Admin: 08/19/18 08:43 Dose: 1 drop Brimonidine Tartrate (Alphagan P 0.15% Ophth Soln) 0 ml EYELF TID [facility] Last Admin: 08/19/18 08:43 Dose: 1 drop Enoxaparin Sodium (Lovenox) 40 mg SUBCUT DAILY [facility] Last Admin: 08/19/18 08:43 Dose: 40 mg Lorazepam (Ativan) 0.5 mg PO Q8H PRN PRN Reason: Anxiety Last Admin: 08/18/18 18:21 Dose: 0.5 mg Methimazole (Methimazole) 10 mg PO TID [facility] Last Admin: 08/19/18 08:42 Dose: 10 mg Metoprolol Succinate (Toprol Xl) 50 mg PO BID [facility] Last Admin: 08/19/18 08:42 Dose: 50 mg Mometasone Furoate/Formoterol Fumar (Dulera 100-5 Mcg) 2 puff IH BIDRT [facility] Last Admin: 08/19/18 07:40 Dose: 2 inhaler Dorzolamide 2% Eye (Drop Own Med) 0 drop EYEBOTH TID [facility] Last Admin: 08/19/18 08:42 Dose: 1 drop Prednisone (Prednisone) 60 mg PO WITHBREAKFAST [facility] Last Admin: 08/19/18 07:41 Dose: 60 mg Sodium Chloride (Saline Flush) 10 ml FLUSH ASDIRECTED PRN PRN Reason: Keep Vein Open Tramadol HCl (Ultram) 50 mg PO Q6HR PRN PRN Reason: pain Last Admin: 08/18/18 20:58 Dose: 50 mg Discontinued Medications Albuterol/Ipratropium (Duoneb 3.0-0.5 Mg/3 Ml) 3 ml NEB ONETIME ONE Stop: 08/17/18 04:56 Last Admin: 08/17/18 05:02 Dose: 3 ml Aspirin (Aspirin) 324 mg PO ONETIME ONE Stop: 08/17/18 05:37 Last Admin: 08/17/18 05:42 Dose: 324 mg Brimonidine Tartrate (Alphagan P 0.15% Ophth Soln) ml EYERT BID SRINIVASAN Lorazepam (Ativan) 1 mg IVPUSH ONETIME ONE Stop: 08/17/18 06:42 Last Admin: 08/17/18 06:48 Dose: 1 mg Lorazepam (Ativan) 0.5 mg PO ONETIME ONE Stop: 08/17/18 20:56 Last Admin: 08/17/18 21:14 Dose: 0.5 mg Methimazole (Methimazole) 10 mg PO DAILY [facility] Last Admin: 08/18/18 09:20 Dose: 10 mg Methimazole (Methimazole) 10 mg PO BID SRINIVASAN Methylprednisolone Sodium Succinate (Solu-Medrol) 125 mg IVPUSH ONETIME ONE Stop: 08/17/18 04:57 Last Admin: 08/17/18 05:02 Dose: 125 mg Methylprednisolone Sodium Succinate (Solu-Medrol) 125 mg IVPUSH ONETIME ONE Stop: 08/18/18 10:18 Last Admin: 08/18/18 10:41 Dose: 125 mg - Exam General: Alert, Oriented HEENT: Pupils Equal Neck: Supple Lungs: Wheezing Cardiovascular: Regular Rate, Regular Rhythm GI/Abdominal Exam: Normal Bowel Sounds, Soft - Problem List Review Problem List Initiated/Reviewed/Updated: Yes - My Orders Last 24 Hours: My Active Orders 08/18/18 09:58 LORazepam [Ativan] 0.5 mg PO Q8H PRN 08/18/18 14:00 methIMAzole 10 mg PO TID 08/18/18 16:45 Enoxaparin [Lovenox] 40 mg SUBCUT DAILY 08/18/18 21:00 Brimonidine [Alphagan P 0.15% Ophth Soln] 0 ml EYELF TID Brimonidine [Alphagan P 0.15% Ophth Soln] 0 ml EYERT BID Dorzolamide HCl/Pf [Dorzolamide 2% Eye Drop] 0 drop EYEBOTH TID - Plan Plan:: #COPD exacerbation #still wheezing, but improving. duonebs ATC and albuterol PRN start dulera (LABA/ICS combo) counselled on continue tobacco cessation azithromycin 500 mg daily x 3 days prednisone 60 mg daily x 5 days #Hyperthyroidism TSH is low, Free T3 is elevated Free T4 is normal. Continue increased dose of methimazole. DVT ppx ambulate patient FC
[2018-08-19 14:03] VITALS: BP 109/67
[2018-08-19] MEDS: traMADol 50 MG Tab PO PRN (18:06)
== END 2018-08-19 18:25 | disposition left against medical advice (07) | DRG 192 ==
LOC: DL.ED 04:51 → UNDOADMIN 07:01 → DL.MS 07:01
PROVIDERS: ADMIT Hospitalist; ATTEND Hospitalist
DX: J44.1 Chronic obstructive pulmonary disease with (acute) exacerbation (principal); H54.7 Unspecified visual loss; E05.90 Thyrotoxicosis, unspecified without thyrotoxic crisis or storm; F41.9 Anxiety disorder, unspecified; Z87.891 Personal history of nicotine dependence; Z79.891 Long term (current) use of opiate analgesic; Z79.899 Other long term (current) drug therapy; Z71.6 Tobacco abuse counseling; Z88.5 Allergy status to narcotic agent
CPT/HCPCS: 36415; 36600; 71045; 80053; 82150; 82553; 82803; 83605; 83690; 83735; 84436; 84443; 84481; 84484; 85025; 85379; 87040; 93005; 94640; 94644; 94645; 96374; 96375; 99285; A9270-GY; J1650; J2060; J2930; J7613-GY; J7620-GY

== ENCOUNTER 2018-09-28 15:14 | Inpatient (IN) | payer OTHER ==
--- NOTE | 2018-09-28 15:23 | EDM.PDOC ---
ED HPI GENERAL MEDICAL PROBLEM - General Stated Complaint: [facility] Time Seen by Provider: 09/28/18 15:22 Source of Information: Reports: Patient, EMS, EMS Notes Reviewed, RN, RN Notes Reviewed - History of Present Illness INITIAL COMMENTS - FREE TEXT/NARRATIVE: Pt presents to ER per [facility] with c/o SOB, fatigue, malaise, chest pains, productive cough. Patient states she has a history of COPD. She states she has been sick for the past 2 days. She admits to fever and chills, SOB, chest pain, nausea at times. Onset: Gradual Duration: Constant, Getting Worse Location: Reports: Chest Quality: Reports: Ache Severity: Moderate - Related Data Allergies Allergy/AdvReac Type Severity Reaction Status Date / Time No Known Allergies Allergy Verified 09/28/18 15:27 Home Meds: Home Meds traMADol HCl [Tramadol HCl] 50 mg PO Q6HR PRN 02/27/15 [History] Acetaminophen [Tylenol Extra Strength] 1,000 mg PO DAILY PRN 01/27/17 [History] Metoprolol Succinate [Toprol Xl] 50 mg PO BID 06/17/18 [History] methIMAzole [Methimazole] 10 mg PO DAILY 06/17/18 [History] Benzonatate 100 mg PO TID PRN 07/22/18 [History] Brimonidine Tartrate 1 drop EYELF TID 08/18/18 [History] Brimonidine Tartrate 1 drop EYERT BID 08/18/18 [History] Dorzolamide HCl/Pf [Dorzolamide 2% Eye Drop] 1 drop EYEBOTH TID 08/18/18 [ History] Past Medical History HEENT History: Reports: Impaired Vision, Other (See Below) Other HEENT History: wears glasses, patient stating 08/10/18 was seen by optometry in [place] 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 , 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 Musculoskeletal History: Reports: None Neurological History: Reports: None Psychiatric History: Reports: None Endocrine/Metabolic History: Reports: None Hematologic History: Reports: None Immunologic History: Reports: None Oncologic (Cancer) History: Reports: None Dermatologic History: Reports: None - Infectious Disease History Infectious Disease History: Reports: Chicken Pox - Past Surgical History Head Surgeries/Procedures: Reports: None Social & Family History - Family History Family Medical History: Noncontributory - Caffeine Use Caffeine Use: Reports: Coffee - Living Situation & Occupation Living situation: Reports: with Family Occupation: Unemployed ED ROS GENERAL - Review of Systems Review Of Systems: ROS reveals no pertinent complaints other than HPI. ED EXAM, GENERAL - Physical Exam Exam: See Below Exam Limited By: No Limitations General Appearance: Alert, WD/WN, Mild Distress Eye Exam: Bilateral Eye: EOMI, Normal Inspection Ears: Normal External Exam, Hearing Grossly Normal Nose: Normal Inspection Throat/Mouth: Normal Inspection, Normal Voice, No Airway Compromise Head: Atraumatic, Normocephalic Neck: Normal Inspection, Supple, Non-Tender, Full Range of Motion Respiratory/Chest: Chest Non-Tender, Decreased Breath Sounds, Crackles, Rhonchi , Wheezing Cardiovascular: Normal Peripheral Pulses, Regular Rate, Rhythm, No Edema, No Gallop, No JVD, No Murmur, No Rub Peripheral Pulses: 2+: Radial (L), Radial (R) GI/Abdominal: Normal Bowel Sounds, Soft, Non-Tender (Female) Exam: Deferred Rectal (Female) Exam: Deferred Back Exam: Normal Inspection, Full Range of Motion, NT Extremities: Normal Inspection, Normal Range of Motion, Non-Tender, No Pedal Edema, Normal Capillary Refill Neurological: Alert, Oriented, CN II-XII Intact, Normal Cognition Psychiatric: Depressed Mood, Flat Affect Skin Exam: Warm, Dry, Intact, Normal Color, No Rash Lymphatic: No Adenopathy Course - Vital Signs Last Recorded V/S: Last Vital Signs Temp 98.6 F 09/28/18 17:06 Pulse 72 09/28/18 17:06 Resp 18 09/28/18 17:06 BP 140/83 09/28/18 17:06 Pulse Ox 100 09/28/18 17:06 - Orders/Labs/Meds Orders: Active Orders 24 hr Category Date Time Status EKG Documentation Completion [RC] STAT Care 09/28/18 15:27 Active Peripheral IV Care [RC] . DIRECTED Care 09/28/18 15:28 Active RT Aerosol Therapy [RC] ASDIRECTED Care 09/28/18 15:33 Active COMPREHENSIVE METABOLIC PN,CMP [CHEM] Stat Lab 09/28/18 15:40 Results CULTURE BLOOD [BC] Stat Lab 09/28/18 15:40 Received CULTURE BLOOD [BC] Stat Lab 09/28/18 15:45 Received ETOH [ETHANOL BLOOD MEDICAL] [CHEM] Stat Lab 09/28/18 15:40 Results TROPONIN I [CHEM] Stat Lab 09/28/18 15:40 Results Levofloxacin/Dextrose 5%-Water [Levaquin in D5W 500 MG/ Med 09/28/18 16:26 Active 100 ML] 500 mg Premix Bag 1 bag IV ONETIME Sodium Chloride 0.9% [Normal Saline] 1,000 ml Med 09/28/18 16:26 Active IV .BOLUS Sodium Chloride 0.9% [Saline Flush] Med 09/28/18 15:27 Active 10 ml FLUSH ASDIRECTED PRN Blood Culture x2 Reflex Set [OM.PC] Stat Oth 09/28/18 15:27 Ordered Peripheral IV Insertion Adult [OM.PC] Stat Oth 09/28/18 15:27 Ordered Medication Orders Levofloxacin/Dextrose 500 mg/ (Premix) 100 mls @ 100 mls/hr IV ONETIME ONE Stop: 09/28/18 17:25 Last Admin: 09/28/18 16:44 Dose: 100 mls/hr Sodium Chloride (Normal Saline) 1,000 mls @ 150 mls/hr IV .BOLUS ONE Stop: 09/28/18 23:05 Last Admin: 09/28/18 16:44 Dose: 150 mls/hr Sodium Chloride (Saline Flush) 10 ml FLUSH ASDIRECTED PRN PRN Reason: Keep Vein Open Last Admin: 09/28/18 15:44 Dose: 10 ml Labs: Laboratory Tests 09/28/18 09/28/18 09/28/18 Range/Units 15:40 15:40 15:40 WBC 21.8 H (5.0-10.0) 10^3/uL RBC 5.32 (4.2-5.4) 10^6/uL Hgb 12.5 (12.0-16.0) g/dL Hct 39.2 (37.0-47.0) % MCV 73.7 L D (80-100) fL MCH 23.5 L (27.0-34.0) pg MCHC 31.9 L (33.0-35.0) g/dL Plt Count 264 (150-450) 10^3/uL Neut % (Auto) 93.5 H (42.2-75.2) % Lymph % (Auto) 3.4 L (20.5-50.1) % [place] % (Auto) 3.0 (2-8) % Eos % (Auto) 0.0 L (1.0-3.0) % Baso % (Auto) 0.1 (0.0-1.0) % Sodium 134 L (135-145) mmol/L Potassium 3.5 L (3.6-5.0) mmol/L Chloride 105 (101-111) mmol/L BUN 6 L (7-18) mg/dL Creatinine 0.6 (0.6-1.3) mg/dL Est Cr Clr Drug Dosing 107.63 mL/min Estimated GFR (MDRD) > 60 BUN/Creatinine Ratio 10.00 Glucose 132 H (74-105) mg/dL Lactic Acid 1.0 (0.5-2.2) mmol/L Calcium 8.8 (8.4-10.2) mg/dl Total Bilirubin 1.1 H (0.2-1.0) mg/dL AST 23 (10-42) IU/L ALT 12 (10-60) IU/L Alkaline Phosphatase 106 (42-121) IU/L Troponin I < 0.02 (0.00-0.02) ng/ml Total Protein 7.3 (6.7-8.2) g/dl Albumin 3.7 (3.2-5.5) g/dl Globulin 3.6 Albumin/Globulin Ratio 1.03 Urine Color (YELLOW) Urine Appearance (CLEAR) Urine pH (5.0-9.0) Ur Specific [place] (1.005-1.030) Urine Protein (NEGATIVE) Urine Glucose (UA) (NEGATIVE) Urine Ketones (NEGATIVE) Urine Occult Blood (NEGATIVE) Urine Nitrite (NEGATIVE) Urine Bilirubin (NEGATIVE) Urine Urobilinogen (0.2-1.0) mg/dL Ur Leukocyte Esterase (NEGATIVE) Urine RBC /HPF Urine WBC (0-5/HPF) /HPF Ur Epithelial Cells /HPF Amorphous Sediment (0/HPF) /HPF Urine Bacteria (0-FEW/HPF) /HPF Urine Mucus /LPF Urine HCG, Qual Urine Opiates Screen (NEGATIVE) Ur Oxycodone Screen (NEGATIVE) Urine Methadone Screen (NEGATIVE) Ur Barbiturates Screen (NEGATIVE) U Tricyclic Antidepress (NEGATIVE) Ur Phencyclidine Scrn (NEGATIVE) Ur Amphetamine Screen (NEGATIVE) U Methamphetamines Scrn (NEGATIVE) Urine MDMA Screen (NEGATIVE) U Benzodiazepines Scrn (NEGATIVE) Urine Cocaine Screen (NEGATIVE) U Marijuana (THC) Screen (NEGATIVE) Ethyl Alcohol < 5 mg/dL 09/28/18 09/28/18 09/28/18 Range/Units 16:11 16:12 16:12 WBC (5.0-10.0) 10^3/uL RBC (4.2-5.4) 10^6/uL Hgb (12.0-16.0) g/dL Hct (37.0-47.0) % MCV (80-100) fL MCH (27.0-34.0) pg MCHC (33.0-35.0) g/dL Plt Count (150-450) 10^3/uL Neut % (Auto) (42.2-75.2) % Lymph % (Auto) (20.5-50.1) % [place] % (Auto) (2-8) % Eos % (Auto) (1.0-3.0) % Baso % (Auto) (0.0-1.0) % Sodium (135-145) mmol/L Potassium (3.6-5.0) mmol/L Chloride (101-111) mmol/L BUN (7-18) mg/dL Creatinine (0.6-1.3) mg/dL Est Cr Clr Drug Dosing mL/min Estimated GFR (MDRD) BUN/Creatinine Ratio Glucose (74-105) mg/dL Lactic Acid (0.5-2.2) mmol/L Calcium (8.4-10.2) mg/dl Total Bilirubin (0.2-1.0) mg/dL AST (10-42) IU/L ALT (10-60) IU/L Alkaline Phosphatase (42-121) IU/L Troponin I (0.00-0.02) ng/ml Total Protein (6.7-8.2) g/dl Albumin (3.2-5.5) g/dl Globulin Albumin/Globulin Ratio Urine Color Yellow (YELLOW) Urine Appearance Cloudy (CLEAR) Urine pH 8.5 (5.0-9.0) Ur Specific [place] 1.020 (1.005-1.030) Urine Protein Trace H (NEGATIVE) Urine Glucose (UA) Negative (NEGATIVE) Urine Ketones Negative (NEGATIVE) Urine Occult Blood Moderate H (NEGATIVE) Urine Nitrite Negative (NEGATIVE) Urine Bilirubin Negative (NEGATIVE) Urine Urobilinogen 0.2 (0.2-1.0) mg/dL Ur Leukocyte Esterase Negative (NEGATIVE) Urine RBC 5-10 H /HPF Urine WBC 0-5 (0-5/HPF) /HPF Ur Epithelial Cells Moderate H /HPF Amorphous Sediment Few (0/HPF) /HPF Urine Bacteria Rare (0-FEW/HPF) /HPF Urine Mucus Rare /LPF Urine HCG, Qual Negative Urine Opiates Screen Negative (NEGATIVE) Ur Oxycodone Screen Negative (NEGATIVE) Urine Methadone Screen Negative (NEGATIVE) Ur Barbiturates Screen Negative (NEGATIVE) U Tricyclic Antidepress Negative (NEGATIVE) Ur Phencyclidine Scrn Negative (NEGATIVE) Ur Amphetamine Screen Negative (NEGATIVE) U Methamphetamines Scrn Positive H (NEGATIVE) Urine MDMA Screen Negative (NEGATIVE) U Benzodiazepines Scrn Negative (NEGATIVE) Urine Cocaine Screen Negative (NEGATIVE) U Marijuana (THC) Screen Negative (NEGATIVE) Ethyl Alcohol mg/dL Meds: Medications Generic Name Dose Route Start Last Admin Trade Name Freq PRN Reason Stop Dose Admin Levofloxacin/Dextrose 500 mg/ 100 mls @ 100 mls/hr 09/28/18 16:26 09/28/18 16 :44 Premix IV 09/28/18 17:25 100 mls/hr ONETIME ONE Administration Sodium Chloride 1,000 mls @ 150 mls/hr 09/28/18 16:26 09/28/18 16:44 Normal Saline IV 09/28/18 23:05 150 mls/hr .BOLUS ONE Administration Sodium Chloride 10 ml 09/28/18 15:27 09/28/18 15:44 Saline Flush FLUSH 10 ml ASDIRECTED PRN Administration Keep Vein Open Discontinued Medications Generic Name Dose Route Start Last Admin Trade Name Freq PRN Reason Stop Dose Admin Albuterol/Ipratropium 3 ml 09/28/18 15:33 09/28/18 15:51 Duoneb 3.0-0.5 Mg/3 Ml NEB 09/28/18 15:34 3 ml ONETIME ONE Administration - Radiology Interpretation Free Text/Narrative:: Chest xray: FINDINGS: Lungs: No focal pneumonia. Mild interstitial prominence noted bilaterally. Atelectatic and/or early infiltrative changes are within the lung bases. Question early pulmonary hypertension. Clinical correlation is needed. Pleural space: Unremarkable. No pleural effusion. No pneumothorax. Heart/Mediastinum: There is mild prominence of the pulmonary arteries bilaterally. Bones/joints: Unremarkable. IMPRESSION: 1. Mild interstitial prominence noted bilaterally. 2. Atelectatic and/or early infiltrative changes are within the lung bases. 3. There is mild prominence of the pulmonary arteries bilaterally. Question early pulmonary hypertension. Clinical correlation is needed. Thank you for allowing us to participate in the care of your patient. See rad report Departure - Departure Time of Disposition: 17:11 Disposition: Admitted As Inpatient 64 Condition: Fair Clinical Impression: Pneumonia, COPD exacerbation - Discharge Information *PRESCRIPTION DRUG MONITORING PROGRAM REVIEWED*: No *COPY OF PRESCRIPTION DRUG MONITORING REPORT IN PATIENT CEDRIC: No - My Orders Last 24 Hours: My Active Orders 09/28/18 15:27 EKG Documentation Completion [RC] STAT Sodium Chloride 0.9% [Saline Flush] 10 ml FLUSH ASDIRECTED PRN Blood Culture x2 Reflex Set [OM.PC] Stat Peripheral IV Insertion Adult [OM.PC] Stat 09/28/18 15:28 Peripheral IV Care [RC] . DIRECTED 09/28/18 15:33 RT Aerosol Therapy [RC] ASDIRECTED 09/28/18 15:40 COMPREHENSIVE METABOLIC PN,CMP [CHEM] Stat CULTURE BLOOD [BC] Stat ETOH [ETHANOL BLOOD MEDICAL] [CHEM] Stat TROPONIN I [CHEM] Stat 09/28/18 15:45 CULTURE BLOOD [BC] Stat 09/28/18 16:26 Levofloxacin/Dextrose 5%-Water [Levaquin in D5W 500 MG/100 ML] 500 mg Premix Bag 1 bag IV ONETIME Sodium Chloride 0.9% [Normal Saline] 1,000 ml IV .BOLUS - Assessment/Plan Last 24 Hours: My Active Orders 09/28/18 15:27 EKG Documentation Completion [RC] STAT Sodium Chloride 0.9% [Saline Flush] 10 ml FLUSH ASDIRECTED PRN Blood Culture x2 Reflex Set [OM.PC] Stat Peripheral IV Insertion Adult [OM.PC] Stat 09/28/18 15:28 Peripheral IV Care [RC] . DIRECTED 09/28/18 15:33 RT Aerosol Therapy [RC] ASDIRECTED 09/28/18 15:40 COMPREHENSIVE METABOLIC PN,CMP [CHEM] Stat CULTURE BLOOD [BC] Stat ETOH [ETHANOL BLOOD MEDICAL] [CHEM] Stat TROPONIN I [CHEM] Stat 09/28/18 15:45 CULTURE BLOOD [BC] Stat 09/28/18 16:26 Levofloxacin/Dextrose 5%-Water [Levaquin in D5W 500 MG/100 ML] 500 mg Premix Bag 1 bag IV ONETIME Sodium Chloride 0.9% [Normal Saline] 1,000 ml IV .BOLUS
[2018-09-28] MEDS ORDERED: Albuterol/Ipratropium 3.0-0.5 MG/3 ML Neb Soln NEB ONE (15:33)
[2018-09-28] MEDS: Sodium Chloride 0.9% 10 ML Syringe FLUSH PRN (15:44)
[2018-09-28 16:13] LABS: CHLORIDE,CL 105 mmol/L (101-111); SODIUM,NA 134 mmol/L (135-145)
[2018-09-28] MEDS ORDERED: Sodium Chloride 0.9% 1,000 ML IV ONE (16:26)
[2018-09-28] MEDS ORDERED: Levofloxacin/Dextrose 5%-Water 500 MG in Premix Bag 1 BAG IV ONE (16:26)
[2018-09-28] MEDS ORDERED: Potassium Chloride 10 MEQ Tab.ER PO ONE (17:40)
[2018-09-28] MEDS ORDERED: Albuterol/Ipratropium 3.0-0.5 MG/3 ML Neb Soln NEB PRN (17:40)
[2018-09-28] MEDS ORDERED: hydrOXYzine HCl 10 MG Tab PO PRN (17:48)
[2018-09-28] MEDS ORDERED: Docusate Sodium 100 MG Cap PO PRN (17:58)
[2018-09-28] MEDS ORDERED: Acetaminophen 325 MG Tab PO PRN (17:58)
--- NOTE | 2018-09-28 18:11 | PCM.HP ---
H&P History of Present Illness - General Date of Service: 09/28/18 Admit Problem/Dx: Admission Diagnosis/Problem Admission Diagnosis/Problem Fever Source of Information: Patient History Limitations: Reports: No Limitations - History of Present Illness Initial Comments - Free Text/Narative: 38-year-old lady with a history of recurrent pneumonia with MRSA and MSSA. There was also concern about aspiration pneumonia. The patient had the multiple hospital admissions with the hypoxemic respiratory failure. She also has a history of hyperthyroidism with methimazole treatment The patient has had sick contact with the [employer] with upper respiratory tract infection. 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 Complaining of increasing shortness of breath, fever up to 101.2, cough. The cough is nonproductive. No associated lower extremity swelling, chest pain. - Related Data Allergies/Adverse Reactions: Allergies Allergy/AdvReac Type Severity Reaction Status Date / Time No Known Allergies Allergy Verified 09/28/18 15:27 Home Medications: Home Meds traMADol HCl [Tramadol HCl] 50 mg PO Q6HR PRN 02/27/15 [History] Acetaminophen [Tylenol Extra Strength] 1,000 mg PO DAILY PRN 01/27/17 [History] Metoprolol Succinate [Toprol Xl] 50 mg PO BID 06/17/18 [History] methIMAzole [Methimazole] 10 mg PO DAILY 06/17/18 [History] Benzonatate 100 mg PO TID PRN 07/22/18 [History] Brimonidine Tartrate 1 drop EYELF TID 08/18/18 [History] Brimonidine Tartrate 1 drop EYERT BID 08/18/18 [History] Dorzolamide HCl/Pf [Dorzolamide 2% Eye Drop] 1 drop EYEBOTH TID 08/18/18 [ History] Past Medical History HEENT History: Reports: Impaired Vision, Other (See Below) Other HEENT History: wears glasses, patient stating 08/10/18 was seen by optometry in [place] 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.She is able to see a six inch distance with her right eye 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, preeclampsia current 2014 Respiratory History: Reports: COPD, Pneumonia, Recurrent Other Gastrointestinal History: abdominal hernia Genitourinary History: Reports: None [employer] History: Reports: None Other OB/BYN History: limited prenataal care 7 , 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 Musculoskeletal History: Reports: None Neurological History: Reports: None Psychiatric History: Reports: None Endocrine/Metabolic History: Reports: None Hematologic History: Reports: None Immunologic History: Reports: None Oncologic (Cancer) History: Reports: None Dermatologic History: Reports: None - Infectious Disease History Infectious Disease History: Reports: Chicken Pox - Past Surgical History Head Surgeries/Procedures: Reports: None HEENT Surgical History: Reports: Eye Surgery, Tonsillectomy Respiratory Surgical History: Reports: None GI Surgical History: Reports: None Female Surgical History: Reports: None Endocrine Surgical History: Reports: None Musculoskeletal Surgical History: Reports: None Social & Family History - Family History Family Medical History: Noncontributory - Tobacco Use Smoking Status *Q: Former Smoker Years of Tobacco use: 19 Packs/Tins Daily: 1.5 Used Tobacco, but Quit: Yes Month/Year Tobacco Last Used: 2017 Second Hand Smoke Exposure: Yes - Caffeine Use Caffeine Use: Reports: Coffee - Recreational Drug Use Recreational Drug Use: No - Living Situation & Occupation Living situation: Reports: with Family Occupation: Unemployed H&P Review of Systems - Review of Systems: Review Of Systems: See Below General: Reports: Fever, Chills, Malaise, Weakness Pulmonary: Reports: Shortness of Breath Cardiovascular: Denies: Chest Pain, Palpitations, Edema Gastrointestinal: Denies: Abdominal Pain Genitourinary: Denies: Dysuria Musculoskeletal: Denies: Neck Pain Psychiatric: Denies: Confusion Exam - Exam Exam: See Below - Vital Signs Vital Signs: Last Vital Signs Temp 37.0 C 09/28/18 17:06 Pulse 72 09/28/18 17:06 Resp 18 09/28/18 17:06 BP 140/83 09/28/18 17:06 Pulse Ox 100 09/28/18 17:06 Weight: 65.136 kg - Exam Quality Assessment: Supplemental Oxygen General: Alert, Oriented Neck: Supple Lungs: Normal Respiratory Effort, Rhonchi (Bilateral basilar) Cardiovascular: Regular Rate, Regular Rhythm GI/Abdominal Exam: Normal Bowel Sounds, Soft, Non-Tender Extremities: No Pedal Edema Skin: Warm, Dry - Patient Data Lab Results Last 24 hrs: Laboratory Results - last 24 hr 0409/28/18 09/28/18 Range/Units 15:40 15:40 15:40 WBC 21.8 H (5.0-10.0) 10^3/uL RBC 5.32 (4.2-5.4) 10^6/uL Hgb 12.5 (12.0-16.0) g/dL Hct 39.2 (37.0-47.0) % MCV 73.7 L D (80-100) fL MCH 23.5 L (27.0-34.0) pg MCHC 31.9 L (33.0-35.0) g/dL Plt Count 264 (150-450) 10^3/uL Neut % (Auto) 93.5 H (42.2-75.2) % Lymph % (Auto) 3.4 L (20.5-50.1) % Travis % (Auto) 3.0 (2-8) % Eos % (Auto) 0.0 L (1.0-3.0) % Baso % (Auto) 0.1 (0.0-1.0) % Sodium 134 L (135-145) mmol/L Potassium 3.5 L (3.6-5.0) mmol/L Chloride 105 (101-111) mmol/L BUN 6 L (7-18) mg/dL Creatinine 0.6 (0.6-1.3) mg/dL Est Cr Clr Drug Dosing 107.63 mL/min Estimated GFR (MDRD) > 60 BUN/Creatinine Ratio 10.00 Glucose 132 H (74-105) mg/dL Lactic Acid 1.0 (0.5-2.2) mmol/L Calcium 8.8 (8.4-10.2) mg/dl Total Bilirubin 1.1 H (0.2-1.0) mg/dL AST 23 (10-42) IU/L ALT 12 (10-60) IU/L Alkaline Phosphatase 106 (42-121) IU/L Troponin I < 0.02 (0.00-0.02) ng/ml Total Protein 7.3 (6.7-8.2) g/dl Albumin 3.7 (3.2-5.5) g/dl Globulin 3.6 Albumin/Globulin Ratio 1.03 Urine Color (YELLOW) Urine Appearance (CLEAR) Urine pH (5.0-9.0) Ur Specific Thornton (1.005-1.030) Urine Protein (NEGATIVE) Urine Glucose (UA) (NEGATIVE) Urine Ketones (NEGATIVE) Urine Occult Blood (NEGATIVE) Urine Nitrite (NEGATIVE) Urine Bilirubin (NEGATIVE) Urine Urobilinogen (0.2-1.0) mg/dL Ur Leukocyte Esterase (NEGATIVE) Urine RBC /HPF Urine WBC (0-5/HPF) /HPF Ur Epithelial Cells /HPF Amorphous Sediment (0/HPF) /HPF Urine Bacteria (0-FEW/HPF) /HPF Urine Mucus /LPF Urine HCG, Qual Urine Opiates Screen (NEGATIVE) Ur Oxycodone Screen (NEGATIVE) Urine Methadone Screen (NEGATIVE) Ur Barbiturates Screen (NEGATIVE) U Tricyclic Antidepress (NEGATIVE) Ur Phencyclidine Scrn (NEGATIVE) Ur Amphetamine Screen (NEGATIVE) U Methamphetamines Scrn (NEGATIVE) Urine MDMA Screen (NEGATIVE) U Benzodiazepines Scrn (NEGATIVE) Urine Cocaine Screen (NEGATIVE) U Marijuana (THC) Screen (NEGATIVE) Ethyl Alcohol < 5 mg/dL 09/28/18 09/28/18 09/28/18 Range/Units 16:11 16:12 16:12 WBC (5.0-10.0) 10^3/uL RBC (4.2-5.4) 10^6/uL Hgb (12.0-16.0) g/dL Hct (37.0-47.0) % MCV (80-100) fL MCH (27.0-34.0) pg MCHC (33.0-35.0) g/dL Plt Count (150-450) 10^3/uL Neut % (Auto) (42.2-75.2) % Lymph % (Auto) (20.5-50.1) % Travis % (Auto) (2-8) % Eos % (Auto) (1.0-3.0) % Baso % (Auto) (0.0-1.0) % Sodium (135-145) mmol/L Potassium (3.6-5.0) mmol/L Chloride (101-111) mmol/L BUN (7-18) mg/dL Creatinine (0.6-1.3) mg/dL Est Cr Clr Drug Dosing mL/min Estimated GFR (MDRD) BUN/Creatinine Ratio Glucose (74-105) mg/dL Lactic Acid (0.5-2.2) mmol/L Calcium (8.4-10.2) mg/dl Total Bilirubin (0.2-1.0) mg/dL AST (10-42) IU/L ALT (10-60) IU/L Alkaline Phosphatase (42-121) IU/L Troponin I (0.00-0.02) ng/ml Total Protein (6.7-8.2) g/dl Albumin (3.2-5.5) g/dl Globulin Albumin/Globulin Ratio Urine Color Yellow (YELLOW) Urine Appearance Cloudy (CLEAR) Urine pH 8.5 (5.0-9.0) Ur Specific Thornton 1.020 (1.005-1.030) Urine Protein Trace H (NEGATIVE) Urine Glucose (UA) Negative (NEGATIVE) Urine Ketones Negative (NEGATIVE) Urine Occult Blood Moderate H (NEGATIVE) Urine Nitrite Negative (NEGATIVE) Urine Bilirubin Negative (NEGATIVE) Urine Urobilinogen 0.2 (0.2-1.0) mg/dL Ur Leukocyte Esterase Negative (NEGATIVE) Urine RBC 5-10 H /HPF Urine WBC 0-5 (0-5/HPF) /HPF Ur Epithelial Cells Moderate H /HPF Amorphous Sediment Few (0/HPF) /HPF Urine Bacteria Rare (0-FEW/HPF) /HPF Urine Mucus Rare /LPF Urine HCG, Qual Negative Urine Opiates Screen Negative (NEGATIVE) Ur Oxycodone Screen Negative (NEGATIVE) Urine Methadone Screen Negative (NEGATIVE) Ur Barbiturates Screen Negative (NEGATIVE) U Tricyclic Antidepress Negative (NEGATIVE) Ur Phencyclidine Scrn Negative (NEGATIVE) Ur Amphetamine Screen Negative (NEGATIVE) U Methamphetamines Scrn Positive H (NEGATIVE) Urine MDMA Screen Negative (NEGATIVE) U Benzodiazepines Scrn Negative (NEGATIVE) Urine Cocaine Screen Negative (NEGATIVE) U Marijuana (THC) Screen Negative (NEGATIVE) Ethyl Alcohol mg/dL Result Diagrams: 09/28/18 15:40 09/28/18 15:40 Efrain Results Last 24 hrs: Microbiology 09/28/18 15:45 Influenza Type A Antigen Screen - Final Nasal, Unspecified NEGATIVE INFLUENZA A VIRUS AG Influenza Type B Antigen Screen - Final NEGATIVE INFLUENZA B VIRUS AG - Problem List (1) Pneumonia SNOMED Code(s): 164328003 ICD Code: J18.9 - PNEUMONIA, UNSPECIFIED ORGANISM Status: Acute Current Visit: Yes (2) Hypertension SNOMED Code(s): 05058607 ICD Code: I10 - ESSENTIAL (PRIMARY) HYPERTENSION Status: Acute Current Visit: No Onset Date: 12/18/14 (3) Hypokalemia SNOMED Code(s): 27826976 ICD Code: E87.6 - HYPOKALEMIA Status: Acute Current Visit: No Problem List Initiated/Reviewed/Updated: Yes Orders Last 24hrs: Active Orders 24 hr Category Date Time Status Patient Status [ADT] Routine ADT 09/28/18 17:58 Ordered Antiembolic Devices [RC] PER UNIT ROUTINE Care 09/28/18 18:00 Ordered EKG Documentation Completion [RC] STAT Care 09/28/18 15:27 Active Oxygen Therapy [RC] PRN Care 09/28/18 17:58 Ordered Peripheral IV Care [RC] . DIRECTED Care 09/28/18 15:28 Active RT Aerosol Therapy [RC] ASDIRECTED Care 09/28/18 15:33 Active Up With Assistance [RC] ASDIRECTED Care 09/28/18 17:58 Ordered VTE/DVT Education [RC] PER UNIT ROUTINE Care 09/28/18 17:58 Ordered Vital Signs [RC] Q4H Care 09/28/18 17:58 Ordered Regular Diet [DIET] Diet 09/28/18 Breakfast Ordered BASIC METABOLIC PANEL,BMP [CHEM] AM Lab 09/29/18 05:15 Ordered CBC WITH AUTO DIFF [HEME] AM Lab 09/29/18 05:15 Ordered COMPREHENSIVE METABOLIC PN,CMP [CHEM] Stat Lab 09/28/18 15:40 Results CULTURE BLOOD [BC] Stat Lab 09/28/18 15:40 Received CULTURE BLOOD [BC] Stat Lab 09/28/18 15:45 Received ETOH [ETHANOL BLOOD MEDICAL] [CHEM] Stat Lab 09/28/18 15:40 Results INFLUENZA A+B AG SCREEN [RM] Urgent Lab 09/28/18 17:37 Ordered MAGNESIUM [CHEM] AM Lab 09/29/18 05:11 Ordered PHOSPHORUS [CHEM] AM Lab 09/29/18 05:11 Ordered TROPONIN I [CHEM] Stat Lab 09/28/18 15:40 Results Acetaminophen [Tylenol] Med 09/28/18 17:58 Ordered 650 mg PO Q4H PRN Albuterol/Ipratropium [DuoNeb 3.0-0.5 MG/3 ML] Med 09/28/18 18:00 Ordered 3 ml NEB BIDRT Albuterol/Ipratropium [DuoNeb 3.0-0.5 MG/3 ML] Med 09/28/18 17:40 Ordered 3 ml NEB Q4HRRT PRN Brimonidine [Alphagan P 0.15% [facility] Sol] Med 09/28/18 21:00 Ordered See Dose Instructions EYEBOTH BID Budesonide [Pulmicort] Med 09/28/18 18:00 Ordered 0.5 mg NEB BIDRT Docusate Sodium [Colace] Med 09/28/18 17:58 Ordered 100 mg PO BID PRN Dorzolamide [Trusopt 2% [facility] Sol] Med 09/28/18 21:00 Ordered See Dose Instructions EYEBOTH TID Heparin Sodium Med 09/28/18 22:00 Ordered 5,000 units SUBCUT Q8HR Ibuprofen [Motrin] Med 09/28/18 17:58 Ordered 400 mg PO Q6H PRN Latanoprost [Xalatan 0.005% [facility]] Med 09/28/18 21:00 Ordered See Dose Instructions EYEBOTH BEDTIME Levofloxacin/Dextrose 5%-Water [Levaquin in D5W 750 MG/ Med 09/29/18 17:45 Ordered 150 ML] 750 mg Premix Bag 1 bag IV Q24H Metoprolol Succinate [Toprol XL] Med 09/28/18 21:00 Ordered 50 mg PO BID Pantoprazole [ProTONIX] Med 09/29/18 06:00 Ordered 40 mg PO ACBREAKFAST Sodium Chloride 0.9% [Normal Saline] 1,000 ml Med 09/28/18 16:26 Active IV .BOLUS Sodium Chloride 0.9% [Saline Flush] Med 09/28/18 15:27 Active 10 ml FLUSH ASDIRECTED PRN Zolpidem [Ambien] Med 09/28/18 17:58 Ordered 5 mg PO BEDTIME PRN hydrOXYzine HCl [Atarax] Med 09/28/18 17:48 Ordered 10 mg PO Q8H PRN methIMAzole [Methimazole] Med 09/28/18 18:00 Ordered 10 mg PO DAILY Antiembolic Hose [OM.PC] Per Unit Routine Oth 09/28/18 17:59 Ordered Blood Culture x2 Reflex Set [OM.PC] Stat Oth 04/05/19 15:27 Ordered Peripheral IV Insertion Adult [OM.PC] Stat Oth 09/28/18 15:27 Ordered Resuscitation Status Routine Resus Stat 09/28/18 17:58 Ordered Medication Orders Acetaminophen (Tylenol) 650 mg PO Q4H PRN PRN Reason: Pain (Mild 1-3)/fever Albuterol/Ipratropium (Duoneb 3.0-0.5 Mg/3 Ml) 3 ml NEB Q4HRRT PRN PRN Reason: sob Albuterol/Ipratropium (Duoneb 3.0-0.5 Mg/3 Ml) 3 ml NEB BIDRT SRINIVASAN Brimonidine Tartrate (Alphagan P 0.15% Ophth Soln) 0 ml EYEBOTH BID SRINIVASAN Budesonide (Pulmicort) 0.5 mg NEB BIDRT SRINIVASAN Docusate Sodium (Colace) 100 mg PO BID PRN PRN Reason: Constipation Dorzolamide HCl (Trusopt 2% Ophth Soln) 0 ml EYEBOTH TID [facility] Heparin Sodium (Porcine) (Heparin Sodium) 5,000 units SUBCUT Q8HR SRINIVASAN Hydroxyzine HCl (Atarax) 10 mg PO Q8H PRN PRN Reason: Anxiety Sodium Chloride (Normal Saline) 1,000 mls @ 150 mls/hr IV .BOLUS ONE Stop: 09/28/18 23:05 Last Admin: 09/28/18 16:44 Dose: 150 mls/hr Levofloxacin/Dextrose 750 mg/ (Premix) 150 mls @ 100 mls/hr IV Q24H [facility] Ibuprofen (Motrin) 400 mg PO Q6H PRN PRN Reason: Pain (moderate 4-6) Latanoprost (Xalatan 0.005% Ophth Soln) 0 ml EYEBOTH BEDTIME SRINIVASAN Methimazole (Methimazole) 10 mg PO DAILY [facility] Metoprolol Succinate (Toprol Xl) 50 mg PO BID SRINIVASAN Pantoprazole Sodium (Protonix) 40 mg PO ACBREAKFAST [facility] Sodium Chloride (Saline Flush) 10 ml FLUSH ASDIRECTED PRN PRN Reason: Keep Vein Open Last Admin: 09/28/18 15:44 Dose: 10 ml Zolpidem Tartrate (Ambien) 5 mg PO BEDTIME PRN PRN Reason: Sleep Assessment/Plan Comment:: 38-year-old lady with a history of recurrent acute hypoxemic respiratory failure secondary to pneumonia with the prior diagnosis of MRSA and MSSA pneumonia. #1 acute bronchitis, possible pneumonia It is difficult to interpret chest x-ray are much of that is a new changes versus old. Obtain influenza swab Blood cultures Sputum culture if possible We will treat the patient with IV levofloxacin and IV vancomycin #2 history of hypertension Treat with metoprolol #3 Hyperthyroidism Treat with methimazol #4 glaucoma Continue eyedrops #5 dvt prophylaxis sq heparin
[2018-09-28] MEDS: Methimazole 5 MG Tab PO SCH (18:28)
[2018-09-28] MEDS: Albuterol/Ipratropium 3.0-0.5 MG/3 ML Neb Soln NEB SCH (18:31)
[2018-09-28] MEDS: Budesonide 0.5 MG/2 ML Neb Susp NEB SCH (18:39)
[2018-09-28] MEDS: Ibuprofen 400 MG Tab PO PRN (20:40)
[2018-09-28 20:59] LABS: ANION GAP 13.5
[2018-09-28] MEDS: Metoprolol Succinate 50 MG Tab.ER PO SCH (22:06)
[2018-09-28] MEDS: Dorzolamide 2% Ophth Soln 10 ML Bottle EYEBOTH SCH (22:12)
[2018-09-28] MEDS: Brimonidine 0.15% Ophth Soln 5 ML Bottle EYEBOTH SCH (22:12)
[2018-09-28] MEDS: Zolpidem 5 MG Tab PO PRN (22:13)
[2018-09-28] MEDS: Latanoprost 0.005% Ophth Soln 2.5 ML Bottle EYEBOTH SCH (22:13)
[2018-09-28] MEDS: Heparin Sodium 5,000 Units/ML Vial SUBCUT SCH (22:14)
[2018-09-29] MEDS: Heparin Sodium 5,000 Units/ML Vial SUBCUT SCH ×3 (06:09→21:16)
[2018-09-29] MEDS: Pantoprazole 40 MG Tab.CR PO SCH (06:10)
[2018-09-29 06:53] LABS: ANION GAP 11.8; CHLORIDE,CL 112 mmol/L (101-111); SODIUM,NA 138 mmol/L (135-145)
[2018-09-29] MEDS: Budesonide 0.5 MG/2 ML Neb Susp NEB SCH ×2 (07:11→17:20)
[2018-09-29] MEDS: Albuterol/Ipratropium 3.0-0.5 MG/3 ML Neb Soln NEB SCH ×2 (07:11→17:20)
[2018-09-29] MEDS: Brimonidine 0.15% Ophth Soln 5 ML Bottle EYEBOTH SCH ×2 (08:18→21:13)
[2018-09-29] MEDS: Metoprolol Succinate 50 MG Tab.ER PO SCH ×2 (08:18→21:12)
[2018-09-29] MEDS: Methimazole 5 MG Tab PO SCH (08:18)
[2018-09-29] MEDS: Dorzolamide 2% Ophth Soln 10 ML Bottle EYEBOTH SCH ×3 (08:18→21:17)
--- NOTE | 2018-09-29 10:14 | PCM.PN ---
- General Info Date of Service: 09/29/18 Admission Dx/Problem (Free Text): Admission Diagnosis/Problem Admission Diagnosis/Problem Fever Subjective Update: Feeling better Shortness of breath is better. Still has moderate coughing. No associated chest pain. Did not require oxygen supplement. No chest pain, no abdominal pain. Functional Status: Reports: Tolerating Diet - Review of Systems General: Reports: Weakness (Improved). Denies: Fever Pulmonary: Reports: Shortness of Breath (Improved) Cardiovascular: Denies: Chest Pain, Edema Gastrointestinal: Denies: Abdominal Pain Genitourinary: Denies: Dysuria Neurological: Denies: Confusion - Patient Data Vitals - Most Recent: Last Vital Signs Temp 36.8 C 09/29/18 07:52 Pulse 74 09/29/18 08:18 Resp 18 09/29/18 07:52 BP 127/76 09/29/18 08:18 Pulse Ox 100 09/29/18 07:52 Weight - Most Recent: 65.136 kg I&O - Last 24 Hours: Intake & Output 09/28/18 09/29/18 09/29/18 22:59 06:59 14:59 Intake Total 97 771 260 Output Total 600 Balance 97 171 260 Lab Results Last 24 Hours: Laboratory Results - last 24 hr 09/28/18 09/28/18 09/28/18 Range/Units 15:40 15:40 15:40 WBC 21.8 H (5.0-10.0) 10^3/uL RBC 5.32 (4.2-5.4) 10^6/uL Hgb 12.5 (12.0-16.0) g/dL Hct 39.2 (37.0-47.0) % MCV 73.7 L D (80-100) fL MCH 23.5 L (27.0-34.0) pg MCHC 31.9 L (33.0-35.0) g/dL Plt Count 264 (150-450) 10^3/uL Neut % (Auto) 93.5 H (42.2-75.2) % Lymph % (Auto) 3.4 L (20.5-50.1) % [place] % (Auto) 3.0 (2-8) % Eos % (Auto) 0.0 L (1.0-3.0) % Baso % (Auto) 0.1 (0.0-1.0) % Sodium 134 L (135-145) mmol/L Potassium 3.5 L (3.6-5.0) mmol/L Chloride 105 (101-111) mmol/L Carbon Dioxide 19.0 L (21.0-31.0) mmol/L Anion Gap 13.5 BUN 6 L (7-18) mg/dL Creatinine 0.6 (0.6-1.3) mg/dL Est Cr Clr Drug Dosing 107.63 mL/min Estimated GFR (MDRD) > 60 BUN/Creatinine Ratio 10.00 Glucose 132 H (74-105) mg/dL Lactic Acid 1.0 (0.5-2.2) mmol/L Calcium 8.8 (8.4-10.2) mg/dl Phosphorus (2.5-4.6) mg/dL Magnesium (1.8-2.5) mg/dL Total Bilirubin 1.1 H (0.2-1.0) mg/dL AST 23 (10-42) IU/L ALT 12 (10-60) IU/L Alkaline Phosphatase 106 (42-121) IU/L Troponin I < 0.02 (0.00-0.02) ng/ml Total Protein 7.3 (6.7-8.2) g/dl Albumin 3.7 (3.2-5.5) g/dl Globulin 3.6 Albumin/Globulin Ratio 1.03 Urine Color (YELLOW) Urine Appearance (CLEAR) Urine pH (5.0-9.0) Ur Specific [place] (1.005-1.030) Urine Protein (NEGATIVE) Urine Glucose (UA) (NEGATIVE) Urine Ketones (NEGATIVE) Urine Occult Blood (NEGATIVE) Urine Nitrite (NEGATIVE) Urine Bilirubin (NEGATIVE) Urine Urobilinogen (0.2-1.0) mg/dL Ur Leukocyte Esterase (NEGATIVE) Urine RBC /HPF Urine WBC (0-5/HPF) /HPF Ur Epithelial Cells /HPF Amorphous Sediment (0/HPF) /HPF Urine Bacteria (0-FEW/HPF) /HPF Urine Mucus /LPF Urine HCG, Qual Urine Opiates Screen (NEGATIVE) Ur Oxycodone Screen (NEGATIVE) Urine Methadone Screen (NEGATIVE) Ur Barbiturates Screen (NEGATIVE) U Tricyclic Antidepress (NEGATIVE) Ur Phencyclidine Scrn (NEGATIVE) Ur Amphetamine Screen (NEGATIVE) U Methamphetamines Scrn (NEGATIVE) Urine MDMA Screen (NEGATIVE) U Benzodiazepines Scrn (NEGATIVE) Urine Cocaine Screen (NEGATIVE) U Marijuana (THC) Screen (NEGATIVE) Ethyl Alcohol < 5 mg/dL 09/28/18 09/28/18 09/28/18 Range/Units 16:11 16:12 16:12 WBC (5.0-10.0) 10^3/uL RBC (4.2-5.4) 10^6/uL Hgb (12.0-16.0) g/dL Hct (37.0-47.0) % MCV (80-100) fL MCH (27.0-34.0) pg MCHC (33.0-35.0) g/dL Plt Count (150-450) 10^3/uL Neut % (Auto) (42.2-75.2) % Lymph % (Auto) (20.5-50.1) % [place] % (Auto) (2-8) % Eos % (Auto) (1.0-3.0) % Baso % (Auto) (0.0-1.0) % Sodium (135-145) mmol/L Potassium (3.6-5.0) mmol/L Chloride (101-111) mmol/L Carbon Dioxide (21.0-31.0) mmol/L Anion Gap BUN (7-18) mg/dL Creatinine (0.6-1.3) mg/dL Est Cr Clr Drug Dosing mL/min Estimated GFR (MDRD) BUN/Creatinine Ratio Glucose (74-105) mg/dL Lactic Acid (0.5-2.2) mmol/L Calcium (8.4-10.2) mg/dl Phosphorus (2.5-4.6) mg/dL Magnesium (1.8-2.5) mg/dL Total Bilirubin (0.2-1.0) mg/dL AST (10-42) IU/L ALT (10-60) IU/L Alkaline Phosphatase (42-121) IU/L Troponin I (0.00-0.02) ng/ml Total Protein (6.7-8.2) g/dl Albumin (3.2-5.5) g/dl Globulin Albumin/Globulin Ratio Urine Color Yellow (YELLOW) Urine Appearance Cloudy (CLEAR) Urine pH 8.5 (5.0-9.0) Ur Specific [place] 1.020 (1.005-1.030) Urine Protein Trace H (NEGATIVE) Urine Glucose (UA) Negative (NEGATIVE) Urine Ketones Negative (NEGATIVE) Urine Occult Blood Moderate H (NEGATIVE) Urine Nitrite Negative (NEGATIVE) Urine Bilirubin Negative (NEGATIVE) Urine Urobilinogen 0.2 (0.2-1.0) mg/dL Ur Leukocyte Esterase Negative (NEGATIVE) Urine RBC 5-10 H /HPF Urine WBC 0-5 (0-5/HPF) /HPF Ur Epithelial Cells Moderate H /HPF Amorphous Sediment Few (0/HPF) /HPF Urine Bacteria Rare (0-FEW/HPF) /HPF Urine Mucus Rare /LPF Urine HCG, Qual Negative Urine Opiates Screen Negative (NEGATIVE) Ur Oxycodone Screen Negative (NEGATIVE) Urine Methadone Screen Negative (NEGATIVE) Ur Barbiturates Screen Negative (NEGATIVE) U Tricyclic Antidepress Negative (NEGATIVE) Ur Phencyclidine Scrn Negative (NEGATIVE) Ur Amphetamine Screen Negative (NEGATIVE) U Methamphetamines Scrn Positive H (NEGATIVE) Urine MDMA Screen Negative (NEGATIVE) U Benzodiazepines Scrn Negative (NEGATIVE) Urine Cocaine Screen Negative (NEGATIVE) U Marijuana (THC) Screen Negative (NEGATIVE) Ethyl Alcohol mg/dL 09/29/18 09/29/18 Range/Units 06:00 06:00 WBC 10.3 H (5.0-10.0) 10^3/uL RBC 4.77 (4.2-5.4) 10^6/uL Hgb 11.1 L (12.0-16.0) g/dL Hct 35.9 L (37.0-47.0) % MCV 75.3 L (80-100) fL MCH 23.3 L (27.0-34.0) pg MCHC 30.9 L (33.0-35.0) g/dL Plt Count 235 (150-450) 10^3/uL Neut % (Auto) 83.3 H (42.2-75.2) % Lymph % (Auto) 11.4 L (20.5-50.1) % [place] % (Auto) 4.9 (2-8) % Eos % (Auto) 0.2 L (1.0-3.0) % Baso % (Auto) 0.2 (0.0-1.0) % Sodium 138 (135-145) mmol/L Potassium 3.8 (3.6-5.0) mmol/L Chloride 112 H (101-111) mmol/L Carbon Dioxide 18.0 L (21.0-31.0) mmol/L Anion Gap 11.8 BUN 11 (7-18) mg/dL Creatinine 0.6 (0.6-1.3) mg/dL Est Cr Clr Drug Dosing 107.63 mL/min Estimated GFR (MDRD) > 60 BUN/Creatinine Ratio Glucose 105 (74-105) mg/dL Lactic Acid (0.5-2.2) mmol/L Calcium 8.5 (8.4-10.2) mg/dl Phosphorus 2.9 (2.5-4.6) mg/dL Magnesium 1.7 L (1.8-2.5) mg/dL Total Bilirubin (0.2-1.0) mg/dL AST (10-42) IU/L ALT (10-60) IU/L Alkaline Phosphatase (42-121) IU/L Troponin I (0.00-0.02) ng/ml Total Protein (6.7-8.2) g/dl Albumin (3.2-5.5) g/dl Globulin Albumin/Globulin Ratio Urine Color (YELLOW) Urine Appearance (CLEAR) Urine pH (5.0-9.0) Ur Specific [place] (1.005-1.030) Urine Protein (NEGATIVE) Urine Glucose (UA) (NEGATIVE) Urine Ketones (NEGATIVE) Urine Occult Blood (NEGATIVE) Urine Nitrite (NEGATIVE) Urine Bilirubin (NEGATIVE) Urine Urobilinogen (0.2-1.0) mg/dL Ur Leukocyte Esterase (NEGATIVE) Urine RBC /HPF Urine WBC (0-5/HPF) /HPF Ur Epithelial Cells /HPF Amorphous Sediment (0/HPF) /HPF Urine Bacteria (0-FEW/HPF) /HPF Urine Mucus /LPF Urine HCG, Qual Urine Opiates Screen (NEGATIVE) Ur Oxycodone Screen (NEGATIVE) Urine Methadone Screen (NEGATIVE) Ur Barbiturates Screen (NEGATIVE) U Tricyclic Antidepress (NEGATIVE) Ur Phencyclidine Scrn (NEGATIVE) Ur Amphetamine Screen (NEGATIVE) U Methamphetamines Scrn (NEGATIVE) Urine MDMA Screen (NEGATIVE) U Benzodiazepines Scrn (NEGATIVE) Urine Cocaine Screen (NEGATIVE) U Marijuana (THC) Screen (NEGATIVE) Ethyl Alcohol mg/dL [place] Results Last 24 Hours: Microbiology 09/29/18 08:47 Gram Stain - Final Sputum - Expectorated 09/28/18 15:45 Influenza Type A Antigen Screen - Final Nasal, Unspecified NEGATIVE INFLUENZA A VIRUS AG Influenza Type B Antigen Screen - Final NEGATIVE INFLUENZA B VIRUS AG Med Orders - Current: Current Medications Acetaminophen (Tylenol) 650 mg PO Q4H PRN PRN Reason: Pain (Mild 1-3)/fever Albuterol/Ipratropium (Duoneb 3.0-0.5 Mg/3 Ml) 3 ml NEB Q4HRRT PRN PRN Reason: sob Albuterol/Ipratropium (Duoneb 3.0-0.5 Mg/3 Ml) 3 ml NEB BIDRT [facility] Last Admin: 09/29/18 07:11 Dose: 3 ml Brimonidine Tartrate (Alphagan P 0.15% Ophth Soln) 0 ml EYEBOTH BID [facility] Last Admin: 09/29/18 08:18 Dose: 1 drop Budesonide (Pulmicort) 0.5 mg NEB BIDRT [facility] Last Admin: 09/29/18 07:11 Dose: 0.5 mg Docusate Sodium (Colace) 100 mg PO BID PRN PRN Reason: Constipation Dorzolamide HCl (Trusopt 2% Ophth Soln) 0 ml EYEBOTH TID [facility] Last Admin: 09/29/18 08:18 Dose: 1 drop Heparin Sodium (Porcine) (Heparin Sodium) 5,000 units SUBCUT Q8HR [facility] Last Admin: 09/29/18 06:09 Dose: 5,000 units Hydroxyzine HCl (Atarax) 10 mg PO Q8H PRN PRN Reason: Anxiety Levofloxacin/Dextrose 750 mg/ (Premix) 150 mls @ 100 mls/hr IV Q24H [facility] Vancomycin HCl 1.25 gm/ Sodium (Chloride) 250 mls @ 166.667 mls/hr IV Q8H [facility] Last Admin: 09/29/18 03:25 Dose: 125 mls/hr Ibuprofen (Motrin) 400 mg PO Q6H PRN PRN Reason: Pain (moderate 4-6) Last Admin: 09/28/18 20:40 Dose: 400 mg Latanoprost (Xalatan 0.005% Ophth Soln) 0 ml EYEBOTH BEDTIME [facility] Last Admin: 09/28/18 22:13 Dose: 1 drop Magnesium Oxide (Magnesium Oxide) 250 mg PO BIDM SRINIVASAN Stop: 09/30/18 08:01 Methimazole (Methimazole) 10 mg PO DAILY [facility] Last Admin: 09/29/18 08:18 Dose: 10 mg Metoprolol Succinate (Toprol Xl) 50 mg PO BID [facility] Last Admin: 09/29/18 08:18 Dose: 50 mg Pantoprazole Sodium (Protonix) 40 mg PO ACBREAKFAST [facility] Last Admin: 09/29/18 06:10 Dose: 40 mg Sodium Chloride (Saline Flush) 10 ml FLUSH ASDIRECTED PRN PRN Reason: Keep Vein Open Last Admin: 09/28/18 15:44 Dose: 10 ml Vancomycin HCl (Pharmacy To Dose - Vancomycin) 1 dose .XX ASDIRECTED [facility] Zolpidem Tartrate (Ambien) 5 mg PO BEDTIME PRN PRN Reason: Sleep Last Admin: 09/28/18 22:13 Dose: 5 mg Discontinued Medications Albuterol/Ipratropium (Duoneb 3.0-0.5 Mg/3 Ml) 3 ml NEB ONETIME ONE Stop: 09/28/18 15:34 Last Admin: 09/28/18 15:51 Dose: 3 ml Levofloxacin/Dextrose 500 mg/ (Premix) 100 mls @ 100 mls/hr IV ONETIME ONE Stop: 09/28/18 17:25 Last Infusion: 09/28/18 18:46 Dose: Infused Sodium Chloride (Normal Saline) 1,000 mls @ 150 mls/hr IV .BOLUS ONE Stop: 09/28/18 23:05 Last Admin: 09/28/18 16:44 Dose: 150 mls/hr Potassium Chloride (Klor-Con 10) 40 meq PO ONETIME ONE Stop: 09/28/18 17:41 Last Admin: 09/28/18 18:29 Dose: 40 meq - Exam General: Alert, Oriented Neck: Supple Lungs: Normal Respiratory Effort, Rhonchi (Bilateral basilar more pronounced left side) Cardiovascular: Regular Rate, Regular Rhythm GI/Abdominal Exam: Normal Bowel Sounds, Soft, Non-Tender Extremities: No Pedal Edema - Problem List & Annotations (1) Pneumonia SNOMED Code(s): 381942348 Code(s): J18.9 - PNEUMONIA, UNSPECIFIED ORGANISM Status: Acute Current Visit: Yes (2) Hypertension SNOMED Code(s): 79180192 Code(s): I10 - ESSENTIAL (PRIMARY) HYPERTENSION Status: Acute Current Visit: No Onset Date: 12/18/14 (3) Hypokalemia SNOMED Code(s): 52022424 Code(s): E87.6 - HYPOKALEMIA Status: Acute Current Visit: No - Problem List Review Problem List Initiated/Reviewed/Updated: Yes - My Orders Last 24 Hours: My Active Orders 09/28/18 17:40 Albuterol/Ipratropium [DuoNeb 3.0-0.5 MG/3 ML] 3 ml NEB Q4HRRT PRN 09/28/18 17:48 hydrOXYzine HCl [Atarax] 10 mg PO Q8H PRN 09/28/18 17:58 Patient Status [ADT] Routine Oxygen Therapy [RC] PRN Up With Assistance [RC] ASDIRECTED VTE/DVT Education [RC] PER UNIT ROUTINE Vital Signs [RC] Q4H Acetaminophen [Tylenol] 650 mg PO Q4H PRN Docusate Sodium [Colace] 100 mg PO BID PRN Ibuprofen [Motrin] 400 mg PO Q6H PRN Zolpidem [Ambien] 5 mg PO BEDTIME PRN Resuscitation Status Routine 09/28/18 17:59 Antiembolic Hose [OM.PC] Per Unit Routine 09/28/18 18:00 Antiembolic Devices [RC] 09,21 Albuterol/Ipratropium [DuoNeb 3.0-0.5 MG/3 ML] 3 ml NEB BIDRT Budesonide [Pulmicort] 0.5 mg NEB BIDRT methIMAzole 10 mg PO DAILY 09/28/18 18:15 Pharmacy to Dose - Vancomycin 1 dose .XX ASDIRECTED 09/28/18 19:00 Vancomycin 1.25 gm Sodium Chloride 0.9% [Normal Saline] 250 ml IV Q8H 09/28/18 21:00 Brimonidine [Alphagan P 0.15% Ophth Soln] See Dose Instructions EYEBOTH BID Dorzolamide [Trusopt 2% Ophth Soln] See Dose Instructions EYEBOTH TID Latanoprost [Xalatan 0.005% Ophth Soln] See Dose Instructions EYEBOTH BEDTIME Metoprolol Succinate [Toprol XL] 50 mg PO BID 09/28/18 22:00 Heparin Sodium 5,000 units SUBCUT Q8HR 09/29/18 06:00 Pantoprazole [ProTONIX] 40 mg PO ACBREAKFAST 09/29/18 08:47 CULTURE SPUTUM + SMEAR [RM] Routine 09/29/18 18:00 Levofloxacin/Dextrose 5%-Water [Levaquin in D5W 750 MG/150 ML] 750 mg Premix Bag 1 bag IV Q24H Magnesium Oxide 250 mg PO BIDM 09/30/18 02:30 VANCOMYCIN TROUGH [CHEM] Timed 09/30/18 05:15 BASIC METABOLIC PANEL,BMP [CHEM] AM CBC WITH AUTO DIFF [HEME] AM - Plan Plan:: 38-year-old lady with a history of recurrent acute hypoxemic respiratory failure secondary to pneumonia with the prior diagnosis of MRSA and MSSA pneumonia. #1 acute bronchitis, possible pneumonia It is difficult to interpret chest x-ray , how much of the changes are new changes versus old. negative influenza swab Blood cultures Pending Sputum culture Pending We will treat the patient with IV levofloxacin and IV vancomycin #2 history of hypertension Treat with metoprolol #3 Hyperthyroidism Treat with methimazol #4 glaucoma Continue eyedrops #5 dvt prophylaxis sq heparin
[2018-09-29] MEDS: Ibuprofen 400 MG Tab PO PRN (11:04)
[2018-09-29] MEDS ORDERED: Levofloxacin/Dextrose 5%-Water 750 MG in Premix Bag 1 BAG IV SCH (18:00)
[2018-09-29] MEDS: Zolpidem 5 MG Tab PO PRN (21:13)
[2018-09-29] MEDS: Latanoprost 0.005% Ophth Soln 2.5 ML Bottle EYEBOTH SCH (21:15)
[2018-09-30] MEDS: Heparin Sodium 5,000 Units/ML Vial SUBCUT SCH (05:13)
[2018-09-30] MEDS: Pantoprazole 40 MG Tab.CR PO SCH (05:13)
[2018-09-30 06:31] LABS: ANION GAP 11.5; CHLORIDE,CL 111 mmol/L (101-111); SODIUM,NA 138 mmol/L (135-145)
[2018-09-30] MEDS: Albuterol/Ipratropium 3.0-0.5 MG/3 ML Neb Soln NEB SCH (07:52)
[2018-09-30] MEDS: Budesonide 0.5 MG/2 ML Neb Susp NEB SCH (07:53)
[2018-09-30 07:56] VITALS: BP 137/67
[2018-09-30] MEDS: Sodium Chloride 0.9% 10 ML Syringe FLUSH PRN (08:00)
[2018-09-30] MEDS: Metoprolol Succinate 50 MG Tab.ER PO SCH (09:04)
[2018-09-30] MEDS: Methimazole 5 MG Tab PO SCH (09:04)
[2018-09-30] MEDS: Brimonidine 0.15% Ophth Soln 5 ML Bottle EYEBOTH SCH (09:05)
[2018-09-30] MEDS: Dorzolamide 2% Ophth Soln 10 ML Bottle EYEBOTH SCH (09:06)
--- NOTE | 2018-09-30 11:30 | PCM.DCSUM1 ---
Discharge Summary - Hospital Course Free Text/Narrative:: 38-year-old lady with a history of recurrent acute hypoxemic respiratory failure secondary to pneumonia with the prior diagnosis of MRSA and MSSA pneumonia. #1 acute bronchitis, possible pneumonia It is difficult to interpret chest x-ray , how much of the changes are new changes versus old. negative influenza swab Blood cultures Pending - neg for now Sputum culture neg treated the patient with IV levofloxacin and IV vancomycin finish 7 more days PO levofloxacin and Bactrim #2 history of hypertension Treat with metoprolol #3 Hyperthyroidism Treat with methimazol #4 glaucoma Continue eyedrops Diagnosis: Stroke: No - Discharge Data Discharge Date: 09/30/18 Discharge Disposition: Home, Self-Care 01 Condition: Good - Discharge Diagnosis/Problem(s) (1) Pneumonia SNOMED Code(s): 038423922 ICD Code: J18.9 - PNEUMONIA, UNSPECIFIED ORGANISM Status: Acute Current Visit: Yes (2) Hypertension SNOMED Code(s): 75914599 ICD Code: I10 - ESSENTIAL (PRIMARY) HYPERTENSION Status: Acute Current Visit: No Onset Date: 12/18/14 (3) Hypokalemia SNOMED Code(s): 90622687 ICD Code: E87.6 - HYPOKALEMIA Status: Acute Current Visit: No - Patient Instructions Diet: Heart Healthy Diet Activity: As Tolerated - Discharge Plan *PRESCRIPTION DRUG MONITORING PROGRAM REVIEWED*: No *COPY OF PRESCRIPTION DRUG MONITORING REPORT IN PATIENT CEDRIC: No Prescriptions/Med Rec: Levofloxacin 500 mg PO DAILY #7 tablet Sulfamethoxazole/Trimethoprim [Bactrim Ds Tablet] 1 each PO BID 7 Days #14 tablet Home Medications: Home Meds Acetaminophen [Tylenol Extra Strength] 1,000 mg PO DAILY PRN 01/27/17 [History] Metoprolol Succinate [Toprol Xl] 50 mg PO BID 06/17/18 [History] methIMAzole [Methimazole] 10 mg PO DAILY 06/17/18 [History] Brimonidine Tartrate 1 drop EYELF BID 08/18/18 [History] Brimonidine Tartrate 1 drop EYERT BID 08/18/18 [History] Dorzolamide HCl/Pf [Dorzolamide 2% Eye Drop] 1 drop EYEBOTH TID 08/18/18 [ History] Latanoprost [Xalatan 0.005% Ophth Soln] 1 drop EYEBOTH BEDTIME 09/28/18 [History ] Pantoprazole Sodium [Protonix] 40 mg PO DAILY 09/28/18 [History] Levofloxacin 500 mg PO DAILY #7 tablet 09/30/18 [Rx] Sulfamethoxazole/Trimethoprim [Bactrim Ds Tablet] 1 each PO BID 7 Days #14 tablet 09/30/18 [Rx] Patient Handouts: Community-Acquired Pneumonia, Adult, [id number] Referrals: PCP,None [Primary Care Provider] - (2-[address] Hardeep Brambila) - Discharge Summary/Plan Comment DC Time >30 min.: No - General Info Date of Service: 09/30/18 Functional Status: Reports: Tolerating Diet - Review of Systems General: Denies: Fever, Weakness Pulmonary: Reports: Cough (improved). Denies: Shortness of Breath Cardiovascular: Denies: Chest Pain, Edema Neurological: Denies: Confusion Psychiatric: Denies: Anxiety - Patient Data Vitals - Most Recent: Last Vital Signs Temp 36.7 C 09/30/18 07:54 Pulse 68 09/30/18 09:04 Resp 18 09/30/18 07:54 BP 137/67 09/30/18 09:04 Pulse Ox 99 09/30/18 07:54 Weight - Most Recent: 65.136 kg I&O - Last 24 hours: Intake & Output 09/29/18 09/30/18 09/30/18 22:59 06:59 14:59 Intake Total 750 300 120 Balance 750 300 120 Lab Results - Last 24 hrs: Laboratory Results - last 24 hr 09/30/18 09/30/18 09/30/18 Range/Units 02:30 06:00 06:00 WBC 6.2 (5.0-10.0) 10^3/uL RBC 4.44 (4.2-5.4) 10^6/uL Hgb 10.3 L (12.0-16.0) g/dL Hct 33.9 L (37.0-47.0) % MCV 76.4 L (80-100) fL MCH 23.2 L (27.0-34.0) pg MCHC 30.4 L (33.0-35.0) g/dL Plt Count 213 (150-450) 10^3/uL Neut % (Auto) 64.3 (42.2-75.2) % Lymph % (Auto) 26.4 (20.5-50.1) % [place] % (Auto) 7.9 (2-8) % Eos % (Auto) 1.1 (1.0-3.0) % Baso % (Auto) 0.3 (0.0-1.0) % Sodium 138 (135-145) mmol/L Potassium 3.5 L (3.6-5.0) mmol/L Chloride 111 (101-111) mmol/L Carbon Dioxide 19.0 L (21.0-31.0) mmol/L Anion Gap 11.5 BUN 7 (7-18) mg/dL Creatinine 0.6 (0.6-1.3) mg/dL Est Cr Clr Drug Dosing 107.63 mL/min Estimated GFR (MDRD) > 60 Glucose 98 (74-105) mg/dL Calcium 8.1 L (8.4-10.2) mg/dl Vancomycin Trough 24.7 H (10-15) ug/ml LEIF Results - Last 24 hrs: Microbiology 09/29/18 08:47 Gram Stain - Final Sputum - Expectorated Sputum Culture - Preliminary NORMAL RESPIRATORY ENZO 1 DAY 09/28/18 15:45 Aerobic Blood Culture - Preliminary Blood - Venous - Lab Draw NO GROWTH AFTER 1 DAY Anaerobic Blood Culture - Preliminary NO GROWTH AFTER 1 DAY 09/28/18 15:40 Aerobic Blood Culture - Preliminary Blood - Venous NO GROWTH AFTER 1 DAY Anaerobic Blood Culture - Preliminary NO GROWTH AFTER 1 DAY Med Orders - Current: Current Medications Acetaminophen (Tylenol) 650 mg PO Q4H PRN PRN Reason: Pain (Mild 1-3)/fever Albuterol/Ipratropium (Duoneb 3.0-0.5 Mg/3 Ml) 3 ml NEB Q4HRRT PRN PRN Reason: sob Albuterol/Ipratropium (Duoneb 3.0-0.5 Mg/3 Ml) 3 ml NEB BIDRT [facility] Last Admin: 09/30/18 07:52 Dose: 3 ml Brimonidine Tartrate (Alphagan P 0.15% Ophth Soln) 0 ml EYEBOTH BID [facility] Last Admin: 09/30/18 09:05 Dose: 1 drop Budesonide (Pulmicort) 0.5 mg NEB BIDRT [facility] Last Admin: 09/30/18 07:53 Dose: 0.5 mg Docusate Sodium (Colace) 100 mg PO BID PRN PRN Reason: Constipation Dorzolamide HCl (Trusopt 2% Ophth Soln) 0 ml EYEBOTH TID [facility] Last Admin: 09/30/18 09:06 Dose: 1 drop Heparin Sodium (Porcine) (Heparin Sodium) 5,000 units SUBCUT Q8HR [facility] Last Admin: 09/30/18 05:13 Dose: 5,000 units Hydroxyzine HCl (Atarax) 10 mg PO Q8H PRN PRN Reason: Anxiety Levofloxacin/Dextrose 750 mg/ (Premix) 150 mls @ 100 mls/hr IV Q24H [facility] Last Infusion: 09/29/18 18:54 Dose: Infused Vancomycin HCl 1.25 gm/ Sodium (Chloride) 250 mls @ 166.667 mls/hr IV Q12H [facility] Last Admin: 09/30/18 08:00 Dose: 166.667 mls/hr Ibuprofen (Motrin) 400 mg PO Q6H PRN PRN Reason: Pain (moderate 4-6) Last Admin: 09/29/18 11:04 Dose: 400 mg Latanoprost (Xalatan 0.005% Ophth Soln) 0 ml EYEBOTH BEDTIME [facility] Last Admin: 09/29/18 21:15 Dose: 1 drop Methimazole (Methimazole) 10 mg PO DAILY [facility] Last Admin: 09/30/18 09:04 Dose: 10 mg Metoprolol Succinate (Toprol Xl) 50 mg PO BID [facility] Last Admin: 09/30/18 09:04 Dose: 50 mg Pantoprazole Sodium (Protonix) 40 mg PO ACBREAKFAST [facility] Last Admin: 09/30/18 05:13 Dose: 40 mg Sodium Chloride (Saline Flush) 10 ml FLUSH ASDIRECTED PRN PRN Reason: Keep Vein Open Last Admin: 09/30/18 08:00 Dose: 10 ml Vancomycin HCl (Pharmacy To Dose - Vancomycin) 1 dose .XX ASDIRECTED [facility] Zolpidem Tartrate (Ambien) 5 mg PO BEDTIME PRN PRN Reason: Sleep Last Admin: 09/29/18 21:13 Dose: 5 mg Discontinued Medications Albuterol/Ipratropium (Duoneb 3.0-0.5 Mg/3 Ml) 3 ml NEB ONETIME ONE Stop: 09/28/18 15:34 Last Admin: 09/28/18 15:51 Dose: 3 ml Levofloxacin/Dextrose 500 mg/ (Premix) 100 mls @ 100 mls/hr IV ONETIME ONE Stop: 09/28/18 17:25 Last Infusion: 09/28/18 18:46 Dose: Infused Sodium Chloride (Normal Saline) 1,000 mls @ 150 mls/hr IV .BOLUS ONE Stop: 09/28/18 23:05 Last Admin: 09/28/18 16:44 Dose: 150 mls/hr Vancomycin HCl 1.25 gm/ Sodium (Chloride) 250 mls @ 166.667 mls/hr IV Q8H [facility] Last Admin: 09/30/18 03:18 Dose: Not Given Vancomycin HCl 1.25 gm/ Sodium (Chloride) 250 mls @ 166.667 mls/hr IV Q12H [facility] Magnesium Oxide (Magnesium Oxide) 250 mg PO BIDM [facility] Stop: 09/30/18 08:01 Last Admin: 09/30/18 09:04 Dose: 250 mg Potassium Chloride (Klor-Con 10) 40 meq PO ONETIME ONE Stop: 09/28/18 17:41 Last Admin: 09/28/18 18:29 Dose: 40 meq - Exam General: Reports: Alert, Oriented Neck: Reports: Supple Lungs: Reports: Clear to Auscultation Cardiovascular: Reports: Regular Rate, Regular Rhythm GI/Abdominal Exam: Normal Bowel Sounds, Soft, Non-Tender Skin: Reports: Warm, Dry Neurological: Reports: No New Focal Deficit Psy/Mental Status: Reports: Alert, Normal Affect, Normal Mood
== END 2018-09-30 12:15 | disposition home or self-care (01) | DRG 202 ==
LOC: DL.ED 15:14 → DL.MS 17:00 → UNDOADMOB 17:00 → OBSVTOIN 17:58 → DL.MS 17:58
PROVIDERS: ADMIT Internal Medicine; ATTEND Internal Medicine
DX: J20.9 Acute bronchitis, unspecified (principal); J18.9 Pneumonia, unspecified organism; J44.0 Chronic obstructive pulmonary disease with (acute) lower respiratory infection; E21.3 Hyperparathyroidism, unspecified; H54.7 Unspecified visual loss; I10 Essential (primary) hypertension; E87.6 Hypokalemia; H40.9 Unspecified glaucoma; Z90.49 Acquired absence of other specified parts of digestive tract; Z79.899 Other long term (current) drug therapy; Z87.891 Personal history of nicotine dependence
CPT/HCPCS: 36415; 71045; 80048; 80053; 80202; 80305-QW; 81001; 81025; 83605; 83735; 84100; 84484; 85025; 87040; 87070; 87205; 87804; 93005; 94640; 96374; 99285-25; A9270-GY; G0480; J1644; J1956; J3370; J7030; J7050; J7620-GY

== ENCOUNTER 2018-10-04 18:30 | Emergency (ER) | payer OTHER ==
[2018-10-04] MEDS ORDERED: Sodium Chloride 0.9% 10 ML Syringe FLUSH PRN (18:50)
[2018-10-04] MEDS ORDERED: Sodium Chloride 0.9% 1,000 ML IV ONE (18:56)
[2018-10-04] MEDS ORDERED: Acetaminophen 325 MG Tab PO ONE (18:56)
[2018-10-04 19:38] LABS: ANION GAP 13.8; CHLORIDE,CL 103 mmol/L (101-111); SODIUM,NA 135 mmol/L (135-145)
--- NOTE | 2018-10-04 19:40 | EDM.PDOC ---
ED HPI GENERAL MEDICAL PROBLEM - General Chief Complaint: Respiratory Problem Stated Complaint: SOB Time Seen by Provider: 10/04/18 19:00 Source of Information: Reports: Patient, EMS, EMS Notes Reviewed, RN, RN Notes Reviewed History Limitations: Reports: No Limitations - History of Present Illness INITIAL COMMENTS - FREE TEXT/NARRATIVE: Pt to Er per [facility] with c/o chest tightness and SOB. She states she was admitted to the hospital last week and discharged on Monday. She states she is currently taking Bactrim and Levaquin for the pneumonia. She states today she has felt more SOB. She has used her nebulizer and inhaler numerous times. Upon arrival to the ER patient states she feels somewhat better. Patient admits to intermittent fever since discharge on Monday. Denies N/V/D. 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) Chest Pain Score (Numeric/FACES): 8 - Related Data Allergies Allergy/AdvReac Type Severity Reaction Status Date / Time No Known Allergies Allergy Verified 10/04/18 18:48 Home Meds: Home Meds Acetaminophen [Tylenol Extra Strength] 1,000 mg PO DAILY PRN 01/27/17 [History] Metoprolol Succinate [Toprol Xl] 50 mg PO BID 06/17/18 [History] methIMAzole [Methimazole] 10 mg PO DAILY 06/17/18 [History] Brimonidine Tartrate 1 drop EYELF BID 08/18/18 [History] Brimonidine Tartrate 1 drop EYERT BID 08/18/18 [History] Dorzolamide HCl/Pf [Dorzolamide 2% Eye Drop] 1 drop EYEBOTH TID 08/18/18 [ History] Latanoprost [Xalatan 0.005% Ophth Soln] 1 drop EYEBOTH BEDTIME 09/28/18 [History ] Pantoprazole Sodium [Protonix] 40 mg PO DAILY 09/28/18 [History] Levofloxacin 500 mg PO DAILY #7 tablet 09/30/18 [Rx] Sulfamethoxazole/Trimethoprim [Bactrim Ds Tablet] 1 each PO BID 7 Days #14 tablet 09/30/18 [Rx] Albuterol/Ipratropium [DuoNeb 3.0-0.5 MG/3 ML] 3 ml INH TID PRN 10/04/18 [ History] Past Medical History HEENT History: Reports: Glaucoma, Impaired Vision, Other (See Below) Other HEENT History: wears glasses, patient stating 08/10/18 was seen by optometry in [place] 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 Musculoskeletal History: Reports: None Neurological History: Reports: None Psychiatric History: Reports: None Endocrine/Metabolic History: Reports: None Hematologic History: Reports: None Immunologic History: Reports: None Oncologic (Cancer) History: Reports: None Dermatologic History: Reports: None - Infectious Disease History Infectious Disease History: Reports: Chicken Pox, MRSA - Past Surgical History Head Surgeries/Procedures: Reports: None HEENT Surgical History: Reports: Eye Surgery, Tonsillectomy Respiratory Surgical History: Reports: None GI Surgical History: Reports: None Female Surgical History: Reports: None Endocrine Surgical History: Reports: None Musculoskeletal Surgical History: Reports: None Social & Family History - Family History Family Medical History: Noncontributory - Tobacco Use Smoking Status *Q: Former Smoker Years of Tobacco use: 19 Used Tobacco, but Quit: Yes Month/Year Tobacco Last Used: 04/2018 - Caffeine Use Caffeine Use: Reports: Soda - Recreational Drug Use Recreational Drug Use: No - Living Situation & Occupation Living situation: Reports: with Family Occupation: Unemployed ED ROS GENERAL - Review of Systems Review Of Systems: ROS reveals no pertinent complaints other than HPI. ED EXAM, GENERAL - Physical Exam Exam: See Below Exam Limited By: No Limitations General Appearance: Alert, WD/WN, No Apparent Distress Eye Exam: Bilateral Eye: Normal Inspection Ears: Normal External Exam, Hearing Grossly Normal Nose: Normal Inspection Throat/Mouth: Normal Inspection, Normal Voice, No Airway Compromise Head: Atraumatic, Normocephalic Neck: Normal Inspection, Supple, Non-Tender, Full Range of Motion Respiratory/Chest: Decreased Breath Sounds, Crackles (throughout) Cardiovascular: Normal Peripheral Pulses, Regular Rate, Rhythm, No Edema, No Gallop, No JVD, No Murmur, No Rub Peripheral Pulses: 2+: Radial (L), Radial (R) GI/Abdominal: Normal Bowel Sounds, Soft, Non-Tender (Female) Exam: Deferred Rectal (Female) Exam: Deferred Back Exam: Normal Inspection, Full Range of Motion, NT Extremities: Normal Inspection, Normal Range of Motion, Non-Tender, Normal Capillary Refill, No Pedal Edema Neurological: Alert, Oriented, CN II-XII Intact, Normal Cognition, Normal Gait, Normal Reflexes, No Motor/Sensory Deficits Psychiatric: Normal Affect, Normal Mood Skin Exam: Warm, Dry, Intact, Normal Color, No Rash Lymphatic: No Adenopathy Course - Vital Signs Last Recorded V/S: Last Vital Signs Temp 98.5 F 10/04/18 20:10 Pulse 73 10/04/18 20:10 Resp 18 10/04/18 20:50 BP 106/64 10/04/18 20:10 Pulse Ox 94 L 10/04/18 20:50 - Orders/Labs/Meds Orders: Active Orders 24 hr Category Date Time Status EKG Documentation Completion [RC] STAT Care 10/04/18 18:51 Active Peripheral IV Care [RC] . DIRECTED Care 10/04/18 18:51 Active Chest 1V Frontal [CR] Stat Exams 10/04/18 18:51 Taken CULTURE BLOOD [BC] Stat Lab 10/04/18 19:00 Received CULTURE BLOOD [BC] Stat Lab 10/04/18 19:06 Received Blood Culture x2 Reflex Set [OM.PC] Stat Oth 10/04/18 18:51 Ordered Peripheral IV Insertion Adult [OM.PC] Stat Oth 10/04/18 18:51 Ordered Labs: Laboratory Tests 10/04/18 10/04/18 10/04/18 Range/Units 19:00 19:00 19:00 WBC 5.9 (5.0-10.0) 10^3/uL RBC 4.65 (4.2-5.4) 10^6/uL Hgb 10.7 L (12.0-16.0) g/dL Hct 34.5 L (37.0-47.0) % MCV 74.2 L (80-100) fL MCH 23.0 L (27.0-34.0) pg MCHC 31.0 L (33.0-35.0) g/dL Plt Count 197 (150-450) 10^3/uL Neut % (Auto) 72.2 (42.2-75.2) % Lymph % (Auto) 18.3 L (20.5-50.1) % Stephens % (Auto) 9.0 H (2-8) % Eos % (Auto) 0.3 L (1.0-3.0) % Baso % (Auto) 0.2 (0.0-1.0) % Sodium 135 (135-145) mmol/L Potassium 3.8 (3.6-5.0) mmol/L Chloride 103 (101-111) mmol/L Carbon Dioxide 22.0 (21.0-31.0) mmol/L Anion Gap 13.8 BUN 10 (7-18) mg/dL Creatinine 0.7 (0.6-1.3) mg/dL Est Cr Clr Drug Dosing 92.25 mL/min Estimated GFR (MDRD) > 60 BUN/Creatinine Ratio 14.28 Glucose 92 (74-105) mg/dL Lactic Acid 0.8 (0.5-2.2) mmol/L Calcium 8.4 (8.4-10.2) mg/dl Total Bilirubin 0.9 (0.2-1.0) mg/dL AST 23 (10-42) IU/L ALT 10 (10-60) IU/L Alkaline Phosphatase 82 (42-121) IU/L Troponin I < 0.02 (0.00-0.02) ng/ml Total Protein 7.0 (6.7-8.2) g/dl Albumin 3.3 (3.2-5.5) g/dl Globulin 3.7 Albumin/Globulin Ratio 0.89 Urine Color (YELLOW) Urine Appearance (CLEAR) Urine pH (5.0-9.0) Ur Specific [place] (1.005-1.030) Urine Protein (NEGATIVE) Urine Glucose (UA) (NEGATIVE) Urine Ketones (NEGATIVE) Urine Occult Blood (NEGATIVE) Urine Nitrite (NEGATIVE) Urine Bilirubin (NEGATIVE) Urine Urobilinogen (0.2-1.0) mg/dL Ur Leukocyte Esterase (NEGATIVE) Urine Opiates Screen (NEGATIVE) Ur Oxycodone Screen (NEGATIVE) Urine Methadone Screen (NEGATIVE) Ur Barbiturates Screen (NEGATIVE) U Tricyclic Antidepress (NEGATIVE) Ur Phencyclidine Scrn (NEGATIVE) Ur Amphetamine Screen (NEGATIVE) U Methamphetamines Scrn (NEGATIVE) Urine MDMA Screen (NEGATIVE) U Benzodiazepines Scrn (NEGATIVE) Urine Cocaine Screen (NEGATIVE) U Marijuana (THC) Screen (NEGATIVE) Ethyl Alcohol < 5 mg/dL 10/04/18 10/04/18 Range/Units 19:47 19:47 WBC (5.0-10.0) 10^3/uL RBC (4.2-5.4) 10^6/uL Hgb (12.0-16.0) g/dL Hct (37.0-47.0) % MCV (80-100) fL MCH (27.0-34.0) pg MCHC (33.0-35.0) g/dL Plt Count (150-450) 10^3/uL Neut % (Auto) (42.2-75.2) % Lymph % (Auto) (20.5-50.1) % Stephens % (Auto) (2-8) % Eos % (Auto) (1.0-3.0) % Baso % (Auto) (0.0-1.0) % Sodium (135-145) mmol/L Potassium (3.6-5.0) mmol/L Chloride (101-111) mmol/L Carbon Dioxide (21.0-31.0) mmol/L Anion Gap BUN (7-18) mg/dL Creatinine (0.6-1.3) mg/dL Est Cr Clr Drug Dosing mL/min Estimated GFR (MDRD) BUN/Creatinine Ratio Glucose (74-105) mg/dL Lactic Acid (0.5-2.2) mmol/L Calcium (8.4-10.2) mg/dl Total Bilirubin (0.2-1.0) mg/dL AST (10-42) IU/L ALT (10-60) IU/L Alkaline Phosphatase (42-121) IU/L Troponin I (0.00-0.02) ng/ml Total Protein (6.7-8.2) g/dl Albumin (3.2-5.5) g/dl Globulin Albumin/Globulin Ratio Urine Color Yellow (YELLOW) Urine Appearance Clear (CLEAR) Urine pH 7.5 (5.0-9.0) Ur Specific [place] 1.020 (1.005-1.030) Urine Protein Negative (NEGATIVE) Urine Glucose (UA) Negative (NEGATIVE) Urine Ketones Negative (NEGATIVE) Urine Occult Blood Negative (NEGATIVE) Urine Nitrite Negative (NEGATIVE) Urine Bilirubin Negative (NEGATIVE) Urine Urobilinogen 0.2 (0.2-1.0) mg/dL Ur Leukocyte Esterase Negative (NEGATIVE) Urine Opiates Screen Positive H (NEGATIVE) Ur Oxycodone Screen Negative (NEGATIVE) Urine Methadone Screen Negative (NEGATIVE) Ur Barbiturates Screen Negative (NEGATIVE) U Tricyclic Antidepress Negative (NEGATIVE) Ur Phencyclidine Scrn Negative (NEGATIVE) Ur Amphetamine Screen Negative (NEGATIVE) U Methamphetamines Scrn Negative (NEGATIVE) Urine MDMA Screen Negative (NEGATIVE) U Benzodiazepines Scrn Negative (NEGATIVE) Urine Cocaine Screen Negative (NEGATIVE) U Marijuana (THC) Screen Negative (NEGATIVE) Ethyl Alcohol mg/dL Meds: Medications Discontinued Medications Generic Name Dose Route Start Last Admin Trade Name Freq PRN Reason Stop Dose Admin Acetaminophen 650 mg 10/04/18 18:56 10/04/18 19:09 Tylenol PO 10/04/18 18:57 650 mg NOW ONE Administration Sodium Chloride 1,000 mls @ 999 mls/hr 10/04/18 18:56 10/04/18 19:11 Normal Saline IV 10/04/18 19:56 999 mls/hr .BOLUS ONE Administration Methylprednisolone Sodium Succinate 125 mg 10/04/18 20:20 10/04/18 20:35 Solu-Medrol IVPUSH 10/04/18 20:21 125 mg ONETIME ONE Administration Sodium Chloride 10 ml 10/04/18 18:50 10/04/18 19:07 Saline Flush FLUSH 10 ml ASDIRECTED PRN Administration Keep Vein Open - Radiology Interpretation Free Text/Narrative:: Chest xray: FINDINGS: Lungs: Stable right upper lobe opacity as well as mild right basilar interstitial prominence. No acute findings. Pleural space: No pneumothorax. No sizable pleural effusion. Heart/Mediastinum: No cardiomegaly. Bones/joints: Unremarkable. IMPRESSION: Stable right upper lobe opacity as well as mild right basilar interstitial prominence. No acute findings. Thank you for allowing us to participate in the care of your patient. Dictated and Authenticated by: Mario Alberto Turner MD 10/04/2018 7:38 PM Central Time ([place] & [place]) See rad report - Re-Assessments/Exams Free Text/Narrative Re-Assessment/Exam: 10/04/18 21:19 Oxygen initially put on patient at 2L for sats in the mid 80's. Up to 97%. O2 turned down to 1L. Eventually patient took O2 off completely and sats ranged from 90-94%. Patient states she is feeling better and would like to go home. 10/04/18 21:20 Departure - Departure Time of Disposition: 20:41 Disposition: Home, Self-Care 01 Condition: Fair Clinical Impression: SOB (shortness of breath) - Discharge Information *PRESCRIPTION DRUG MONITORING PROGRAM REVIEWED*: No *COPY OF PRESCRIPTION DRUG MONITORING REPORT IN PATIENT CEDRIC: No Instructions: Shortness of Breath, Adult, Lola-[id number], Cough, Adult, Easy-to- Read, Upper Respiratory Infection, Adult, [id number] Forms: ED Department Discharge Additional Instructions: RX: Prednisone Continue antibiotics and nebulizers as directed at home Follow up with your primary care facility - My Orders Last 24 Hours: My Active Orders 10/04/18 18:51 EKG Documentation Completion [RC] STAT Peripheral IV Care [RC] . DIRECTED Chest 1V Frontal [CR] Stat Blood Culture x2 Reflex Set [OM.PC] Stat Peripheral IV Insertion Adult [OM.PC] Stat 10/04/18 19:00 CULTURE BLOOD [BC] Stat 10/04/18 19:06 CULTURE BLOOD [BC] Stat - Assessment/Plan Last 24 Hours: My Active Orders 10/04/18 18:51 EKG Documentation Completion [RC] STAT Peripheral IV Care [RC] . DIRECTED Chest 1V Frontal [CR] Stat Blood Culture x2 Reflex Set [OM.PC] Stat Peripheral IV Insertion Adult [OM.PC] Stat 10/04/18 19:00 CULTURE BLOOD [BC] Stat 10/04/18 19:06 CULTURE BLOOD [BC] Stat
[2018-10-04 20:11] VITALS: BP 106/64; PULSE 73
[2018-10-04] MEDS ORDERED: methylPREDNISolone Sodium Succinate 125 MG/2 ML SDV IVPUSH ONE (20:20)
== END 2018-10-04 20:52 | disposition home or self-care (01) ==
LOC: DL.ED 18:30
DX: R06.02 Shortness of breath (principal); J44.9 Chronic obstructive pulmonary disease, unspecified; Z87.891 Personal history of nicotine dependence; Z79.899 Other long term (current) drug therapy
CPT/HCPCS: 36415; 71045; 80053; 80305; 81003; 83605; 84484; 85025; 87040; 87804; 93005; 96365; 96375; 99285; A9270; G0480; J2930; J7030

== ENCOUNTER 2018-10-28 20:11 | Emergency (ER) | payer OTHER ==
[2018-10-28] MEDS ORDERED: Albuterol 0.083% 2.5 MG/3 ML Neb Soln INH ONE (20:12)
[2018-10-28] MEDS ORDERED: Azithromycin 250 MG Tab PO ONE (20:12)
[2018-10-28 20:23] VITALS: BP 136/69
[2018-10-28] MEDS ORDERED: methylPREDNISolone Sodium Succinate 125 MG/2 ML SDV IVPUSH ONE (20:25)
[2018-10-28] MEDS ORDERED: LORazepam 2 MG/ML Syringe IVPUSH ONE ×2 (20:25→20:31)
[2018-10-28] MEDS ORDERED: Albuterol/Ipratropium 3.0-0.5 MG/3 ML Neb Soln NEB ONE (20:25)
[2018-10-28 21:01] LABS: ANION GAP 14.5; CHLORIDE,CL 100 mmol/L (101-111); SODIUM,NA 134 mmol/L (135-145)
--- NOTE | 2018-10-28 22:56 | EDM.PDOC ---
ED HPI GENERAL MEDICAL PROBLEM - General Chief Complaint: Respiratory Problem Stated Complaint: TROUBLE BREATHING Time Seen by Provider: 10/28/18 20:30 Source of Information: Reports: Patient, RN History Limitations: Reports: No Limitations - History of Present Illness INITIAL COMMENTS - FREE TEXT/NARRATIVE: ED with c/o difficulty breathing, COPD hx. Hx of pneumonia. Has used neb but not helping. No fever or chills, Cough productive whitish thick phlegm, sometimes yellow or brown. Hx tobacco use, denies recent. - Related Data Allergies Allergy/AdvReac Type Severity Reaction Status Date / Time No Known Allergies Allergy Verified 10/28/18 20:23 Home Meds: Home Meds Acetaminophen [Tylenol Extra Strength] 1,000 mg PO DAILY PRN 01/27/17 [History] Metoprolol Succinate [Toprol Xl] 50 mg PO BID 06/17/18 [History] methIMAzole [Methimazole] 10 mg PO DAILY 06/17/18 [History] Brimonidine Tartrate 1 drop EYELF BID 08/18/18 [History] Brimonidine Tartrate 1 drop EYERT BID 08/18/18 [History] Dorzolamide HCl/Pf [Dorzolamide 2% Eye Drop] 1 drop EYEBOTH TID 08/18/18 [ History] Latanoprost [Xalatan 0.005% Ophth Soln] 1 drop EYEBOTH BEDTIME 09/28/18 [History ] Pantoprazole Sodium [Protonix] 40 mg PO DAILY 09/28/18 [History] Levofloxacin 500 mg PO DAILY #7 tablet 09/30/18 [Rx] Sulfamethoxazole/Trimethoprim [Bactrim Ds Tablet] 1 each PO BID 7 Days #14 tablet 09/30/18 [Rx] Albuterol/Ipratropium [DuoNeb 3.0-0.5 MG/3 ML] 3 ml INH TID PRN 10/04/18 [ History] Past Medical History HEENT History: Reports: Glaucoma, Impaired Vision, Other (See Below) Other HEENT History: wears glasses, patient stating 08/10/18 was seen by optometry in [place] 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 Musculoskeletal History: Reports: None Neurological History: Reports: None Psychiatric History: Reports: None Endocrine/Metabolic History: Reports: None Hematologic History: Reports: None Immunologic History: Reports: None Oncologic (Cancer) History: Reports: None Dermatologic History: Reports: None - Infectious Disease History Infectious Disease History: Reports: Chicken Pox, MRSA - Past Surgical History Head Surgeries/Procedures: Reports: None HEENT Surgical History: Reports: Eye Surgery, Tonsillectomy Respiratory Surgical History: Reports: None GI Surgical History: Reports: None Female Surgical History: Reports: None Endocrine Surgical History: Reports: None Musculoskeletal Surgical History: Reports: None Social & Family History - Family History Family Medical History: Noncontributory - Tobacco Use Smoking Status *Q: Former Smoker Used Tobacco, but Quit: Yes Month/Year Tobacco Last Used: 04/2018 Second Hand Smoke Exposure: Yes - Caffeine Use Caffeine Use: Reports: Coffee - Recreational Drug Use Recreational Drug Use: No - Living Situation & Occupation Living situation: Reports: with Family Occupation: Unemployed ED ROS GENERAL - Review of Systems Review Of Systems: ROS reveals no pertinent complaints other than HPI. ED EXAM, GENERAL - Physical Exam Exam: See Below Exam Limited By: No Limitations General Appearance: Alert, Mild Distress Eye Exam: Bilateral Eye: EOMI Ears: Normal External Exam, Normal TMs Nose: Normal Inspection Throat/Mouth: Normal Inspection Head: Atraumatic, Normocephalic Neck: Normal Inspection Respiratory/Chest: No Respiratory Distress, Rhonchi, Wheezing (bilateral through out greater bronchial area) Cardiovascular: Normal Peripheral Pulses, Regular Rate, Rhythm GI/Abdominal: Normal Bowel Sounds, No Mass Back Exam: Normal Inspection Extremities: Redness Neurological: Alert, Oriented, Inattentive Psychiatric: Anxious Skin Exam: Warm, Dry, Intact, Normal Color Course - Vital Signs Last Recorded V/S: Last Vital Signs Temp 99.6 F 10/28/18 20:16 Pulse 84 10/28/18 20:16 Resp BP 136/69 10/28/18 20:16 Pulse Ox 95 10/28/18 20:16 - Orders/Labs/Meds Labs: Laboratory Tests 10/28/18 10/28/18 10/28/18 Range/Units 20:19 20:19 20:35 WBC 13.5 H (5.0-10.0) 10^3/uL RBC 4.92 (4.2-5.4) 10^6/uL Hgb 11.3 L (12.0-16.0) g/dL Hct 36.9 L (37.0-47.0) % MCV 75.0 L (80-100) fL MCH 23.0 L (27.0-34.0) pg MCHC 30.6 L (33.0-35.0) g/dL Plt Count 304 D (150-450) 10^3/uL Neut % (Auto) 83.5 H (42.2-75.2) % Lymph % (Auto) 10.7 L (20.5-50.1) % [place] % (Auto) 4.2 (2-8) % Eos % (Auto) 1.5 (1.0-3.0) % Baso % (Auto) 0.1 (0.0-1.0) % D-Dimer, Quantitative (0-400) ng/mL Sodium (135-145) mmol/L Potassium (3.6-5.0) mmol/L Chloride (101-111) mmol/L Carbon Dioxide (21.0-31.0) mmol/L Anion Gap BUN (7-18) mg/dL Creatinine (0.6-1.3) mg/dL Est Cr Clr Drug Dosing mL/min Estimated GFR (MDRD) BUN/Creatinine Ratio Glucose (74-105) mg/dL Lactic Acid (0.5-2.2) mmol/L Calcium (8.4-10.2) mg/dl Total Bilirubin (0.2-1.0) mg/dL AST (10-42) IU/L ALT (10-60) IU/L Alkaline Phosphatase (42-121) IU/L Total Protein (6.7-8.2) g/dl Albumin (3.2-5.5) g/dl Globulin Albumin/Globulin Ratio Urine Color Yellow (YELLOW) Urine Appearance Clear (CLEAR) Urine pH 7.0 (5.0-9.0) Ur Specific [place] 1.025 (1.005-1.030) Urine Protein 30 H (NEGATIVE) Urine Glucose (UA) Negative (NEGATIVE) Urine Ketones Negative (NEGATIVE) Urine Occult Blood Trace-intact H (NEGATIVE) Urine Nitrite Negative (NEGATIVE) Urine Bilirubin Negative (NEGATIVE) Urine Urobilinogen 0.2 (0.2-1.0) mg/dL Ur Leukocyte Esterase Negative (NEGATIVE) Urine RBC 0-5 /HPF Urine WBC 5-10 H (0-5/HPF) /HPF Ur Epithelial Cells Moderate H /HPF Urine Bacteria Few (0-FEW/HPF) /HPF Urine Opiates Screen Negative (NEGATIVE) Ur Oxycodone Screen Negative (NEGATIVE) Urine Methadone Screen Negative (NEGATIVE) Ur Barbiturates Screen Negative (NEGATIVE) U Tricyclic Antidepress Negative (NEGATIVE) Ur Phencyclidine Scrn Negative (NEGATIVE) Ur Amphetamine Screen Negative (NEGATIVE) U Methamphetamines Scrn Negative (NEGATIVE) Urine MDMA Screen Negative (NEGATIVE) U Benzodiazepines Scrn Positive H (NEGATIVE) Urine Cocaine Screen Negative (NEGATIVE) U Marijuana (THC) Screen Negative (NEGATIVE) 10/28/18 10/28/18 10/28/18 Range/Units 20:35 20:35 20:35 WBC (5.0-10.0) 10^3/uL RBC (4.2-5.4) 10^6/uL Hgb (12.0-16.0) g/dL Hct (37.0-47.0) % MCV (80-100) fL MCH (27.0-34.0) pg MCHC (33.0-35.0) g/dL Plt Count (150-450) 10^3/uL Neut % (Auto) (42.2-75.2) % Lymph % (Auto) (20.5-50.1) % [place] % (Auto) (2-8) % Eos % (Auto) (1.0-3.0) % Baso % (Auto) (0.0-1.0) % D-Dimer, Quantitative 217 (0-400) ng/mL Sodium 134 L (135-145) mmol/L Potassium 3.5 L (3.6-5.0) mmol/L Chloride 100 L (101-111) mmol/L Carbon Dioxide 23.0 (21.0-31.0) mmol/L Anion Gap 14.5 BUN 18 (7-18) mg/dL Creatinine 0.8 (0.6-1.3) mg/dL Est Cr Clr Drug Dosing 80.72 mL/min Estimated GFR (MDRD) > 60 BUN/Creatinine Ratio 22.50 Glucose 84 (74-105) mg/dL Lactic Acid 1.2 (0.5-2.2) mmol/L Calcium 8.6 (8.4-10.2) mg/dl Total Bilirubin 0.7 (0.2-1.0) mg/dL AST 26 (10-42) IU/L ALT 13 (10-60) IU/L Alkaline Phosphatase 102 (42-121) IU/L Total Protein 7.7 (6.7-8.2) g/dl Albumin 3.6 (3.2-5.5) g/dl Globulin 4.1 Albumin/Globulin Ratio 0.88 Urine Color (YELLOW) Urine Appearance (CLEAR) Urine pH (5.0-9.0) Ur Specific [place] (1.005-1.030) Urine Protein (NEGATIVE) Urine Glucose (UA) (NEGATIVE) Urine Ketones (NEGATIVE) Urine Occult Blood (NEGATIVE) Urine Nitrite (NEGATIVE) Urine Bilirubin (NEGATIVE) Urine Urobilinogen (0.2-1.0) mg/dL Ur Leukocyte Esterase (NEGATIVE) Urine RBC /HPF Urine WBC (0-5/HPF) /HPF Ur Epithelial Cells /HPF Urine Bacteria (0-FEW/HPF) /HPF Urine Opiates Screen (NEGATIVE) Ur Oxycodone Screen (NEGATIVE) Urine Methadone Screen (NEGATIVE) Ur Barbiturates Screen (NEGATIVE) U Tricyclic Antidepress (NEGATIVE) Ur Phencyclidine Scrn (NEGATIVE) Ur Amphetamine Screen (NEGATIVE) U Methamphetamines Scrn (NEGATIVE) Urine MDMA Screen (NEGATIVE) U Benzodiazepines Scrn (NEGATIVE) Urine Cocaine Screen (NEGATIVE) U Marijuana (THC) Screen (NEGATIVE) Meds: Medications Discontinued Medications Generic Name Dose Route Start Last Admin Trade Name Freq PRN Reason Stop Dose Admin Albuterol Confirm 10/28/18 22:58 10/28/18 23:08 Proventil Neb Soln Administered 10/28/18 22:59 Not Given Dose 7.5 mg .ROUTE .STK-MED ONE Albuterol 7.5 mg 10/28/18 20:12 Proventil Neb Soln INH 10/28/18 20:13 .STK-MED ONE Albuterol/Ipratropium 3 ml 05/05/19 20:25 10/28/18 20:31 Duoneb 3.0-0.5 Mg/3 Ml NEB 10/28/18 20:26 3 ml ONETIME ONE Administration Azithromycin Confirm 10/28/18 22:58 10/28/18 23:08 Zithromax Administered 10/28/18 22:59 Not Given Dose 500 mg .ROUTE .STK-MED ONE Azithromycin 500 mg 10/28/18 20:12 Zithromax PO 10/28/18 20:13 .STK-MED ONE Lorazepam 2 mg 10/28/18 20:25 10/28/18 21:03 Ativan IVPUSH 10/28/18 20:26 Not Given ONETIME ONE Lorazepam 0.5 mg 10/28/18 20:31 10/28/18 20:38 Ativan IVPUSH 10/28/18 20:32 0.5 mg ONETIME ONE Administration Methylprednisolone Sodium Succinate 125 mg 10/28/18 20:25 10/28/18 20:37 Solu-Medrol IVPUSH 10/28/18 20:26 125 mg ONETIME ONE Administration - Radiology Interpretation Free Text/Narrative:: CXR no acute findings - Re-Assessments/Exams Free Text/Narrative Re-Assessment/Exam: Air exchange improved following nebulizer treatment. Decreased sheeze. Anxiety improved. Departure - Departure Time of Disposition: 22:50 Disposition: Home, Self-Care 01 Condition: Good Clinical Impression: COPD exacerbation - Discharge Information *PRESCRIPTION DRUG MONITORING PROGRAM REVIEWED*: No *COPY OF PRESCRIPTION DRUG MONITORING REPORT IN PATIENT CEDRIC: No Instructions: Chronic Obstructive Pulmonary Disease, [id number], Acute Bronchitis, Adult, [id number] Referrals: PCP,Unobtain [Ordering Only Provider] - Forms: ED Department Discharge Additional Instructions: humidification avoid smoke azithromycin 500mg tonight then 250mg daily for 4 days prednisone 20mg daily x 5 days then 10mg daily for 5 days clinic follow up this week continue albuterol nebs every 4 hours s needed
[2018-10-28] MEDS ORDERED: Azithromycin 250 MG Tab ONE (22:58)
[2018-10-28] MEDS ORDERED: Albuterol 0.083% 2.5 MG/3 ML Neb Soln ONE (22:58)
== END 2018-10-28 23:05 | disposition home or self-care (01) ==
LOC: DL.ED 20:11
DX: J44.1 Chronic obstructive pulmonary disease with (acute) exacerbation (principal); Z79.899 Other long term (current) drug therapy; Z87.891 Personal history of nicotine dependence
CPT/HCPCS: 36415; 71045; 80053; 80305; 81001; 83605; 85025; 85379; 87040; 93005; 96374; 96375; 99285; A9270; J2060; J2930; J7613-GY; J7620-GY

== ENCOUNTER 2021-02-21 09:45 | Emergency (ER) | payer OTHER ==
--- NOTE | 2021-02-21 10:20 | EDM.PDOC ---
Scribed by Liane Boogie 02/21/21 1016 for Ifrah Hernandez NP ED HPI GENERAL MEDICAL PROBLEM - General Chief Complaint: Respiratory Problem Stated Complaint: LUNGS HURT, SHORT OF BREATH Time Seen by Provider: 02/21/21 09:50 Source of Information: Reports: Patient, RN, RN Notes Reviewed History Limitations: Reports: No Limitations - History of Present Illness INITIAL COMMENTS - FREE TEXT/NARRATIVE: Patient is a 40-year-old female who presents to ER with complaint of shortness of breath and right-sided chest pain, cough, fever. Patient states symptoms began Monday. Patient denies any known exposure to Covid. She states she did have Covid when it first was prevalent, and has not been vaccinated. Patient states she does have a history of asthma and COPD. States she has been using nebulizers and inhalers and they had been working initially but as the symptoms have progressed they have not been working as well. Patient states the highest her fever is gotten is 101. Admits to nausea, vomiting, diarrhea 2 days ago. Onset: Gradual - Related Data Allergies Allergy/AdvReac Type Severity Reaction Status Date / Time No Known Allergies Allergy Verified 10/28/18 20:23 Home Meds: Home Meds Acetaminophen [Tylenol Extra Strength] 1,000 mg PO DAILY PRN 01/27/17 [History] Metoprolol Succinate [Toprol Xl] 50 mg PO BID 06/17/18 [History] methIMAzole [Methimazole] 10 mg PO DAILY 06/17/18 [History] Brimonidine Tartrate 1 drop EYELF BID 08/18/18 [History] Brimonidine Tartrate 1 drop EYERT BID 08/18/18 [History] Dorzolamide HCl/Pf [Dorzolamide 2% Eye Drop] 1 drop EYEBOTH TID 08/18/18 [History] Latanoprost [Xalatan 0.005% Ophth Soln] 1 drop EYEBOTH BEDTIME 09/28/18 [History] Pantoprazole Sodium [Protonix] 40 mg PO DAILY 09/28/18 [History] Levofloxacin 500 mg PO DAILY #7 tablet 09/30/18 [Rx] Sulfamethoxazole/Trimethoprim [Bactrim Ds Tablet] 1 each PO BID 7 Days #14 tablet 09/30/18 [Rx] Albuterol/Ipratropium [DuoNeb 3.0-0.5 MG/3 ML] 3 ml INH TID PRN 10/04/18 [History] Past Medical History HEENT History: Reports: Glaucoma, Impaired Vision, Other (See Below) Other HEENT History: wears glasses, patient stating 08/10/18 was seen by optometry in [place] 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 Other Gastrointestinal History: abdominal hernia Genitourinary History: Reports: None ELEVATOR OPERATOR SERVICE History: Reports: None Other ELEVATOR OPERATOR SERVICE History: limited care 7 , 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 Musculoskeletal History: Reports: None Neurological History: Reports: None Psychiatric History: Reports: None Endocrine/Metabolic History: Reports: None Hematologic History: Reports: None Immunologic History: Reports: None Oncologic (Cancer) History: Reports: None Dermatologic History: Reports: None - Infectious Disease History Infectious Disease History: Reports: Chicken Pox, MRSA - Past Surgical History Head Surgeries/Procedures: Reports: None HEENT Surgical History: Reports: Eye Surgery, Tonsillectomy Respiratory Surgical History: Reports: None GI Surgical History: Reports: None Female Surgical History: Reports: None Endocrine Surgical History: Reports: None Musculoskeletal Surgical History: Reports: None Social & Family History - Family History Family Medical History: No Pertinent Family History - Caffeine Use Caffeine Use: Reports: Coffee - Living Situation & Occupation Living situation: Reports: with Family Occupation: Unemployed ED ROS GENERAL - Review of Systems Review Of Systems: Comprehensive ROS is negative, except as noted in HPI. ED EXAM, GENERAL - Physical Exam Exam: See Below Exam Limited By: No Limitations General Appearance: Alert, WD/WN, Mild Distress Eye Exam: Bilateral Eye: EOMI, Normal Inspection Ears: Normal External Exam, Hearing Grossly Normal Nose: Normal Inspection Throat/Mouth: Normal Inspection, Normal Voice, No Airway Compromise Head: Atraumatic, Normocephalic Neck: Normal Inspection, Supple, Non-Tender, Full Range of Motion Respiratory/Chest: No Respiratory Distress, Decreased Breath Sounds, Crackles (bases bilaterally), Other (chest tenderness right) Cardiovascular: Normal Peripheral Pulses, Regular Rate, Rhythm, No Edema, No Gallop, No JVD, No Murmur, No Rub Peripheral Pulses: 2+: Radial (L), Radial (R) GI/Abdominal: Normal Bowel Sounds, Soft, Non-Tender (Female) Exam: Deferred Rectal (Female) Exam: Deferred Back Exam: Normal Inspection, Full Range of Motion, NT Extremities: Normal Inspection, Normal Range of Motion, Non-Tender, Normal Capillary Refill, No Pedal Edema Neurological: Alert, Oriented, Normal Cognition, Normal Gait, No Motor/Sensory Deficits Psychiatric: Normal Affect, Normal Mood Skin Exam: Warm, Dry, Intact, Normal Color, No Rash Lymphatic: No Adenopathy Course - Vital Signs Last Recorded V/S: Last Vital Signs Temp 98.7 F 02/21/21 14:35 Pulse 105 H 02/21/21 14:35 Resp 18 02/21/21 14:35 BP 120/64 02/21/21 14:35 Pulse Ox 96 02/21/21 14:35 - Orders/Labs/Meds Orders: Active Orders 24 hr Category Date Time Status CULTURE BLOOD [BC] Stat Lab 02/21/21 10:17 Received CULTURE BLOOD [BC] Stat Lab 02/21/21 10:17 Received Blood Culture x2 Reflex Set [OM.PC] Stat Oth 02/21/21 10:06 Ordered Isolation [COMM] Routine Oth 02/21/21 09:57 Active Labs: Laboratory Tests 02/21/21 02/21/21 02/21/21 Range/Units 09:55 10:17 10:17 WBC 11.7 H (5.0-10.0) 10^3/uL RBC 4.78 (4.2-5.4) 10^6/uL Hgb 11.6 L (12.0-16.0) g/dL Hct 36.4 L (37.0-47.0) % MCV 76.2 L (80-100) fL MCH 24.3 L (27.0-34.0) pg MCHC 31.9 L (33.0-35.0) g/dL Plt Count 128 L D (150-450) 10^3/uL Neut % (Auto) 88.0 H (42.2-75.2) % Lymph % (Auto) 8.0 L (20.5-50.1) % [place] % (Auto) 3.5 (2-8) % Eos % (Auto) 0.4 L (1.0-3.0) % Baso % (Auto) 0.1 (0.0-1.0) % D-Dimer, Quantitative (0-400) ng/mL Sodium 142 (136-145) mmol/L Potassium 3.3 L (3.5-5.1) mmol/L Chloride 103 (98-107) mmol/L Carbon Dioxide 30 (21-32) mmol/L Anion Gap 12.3 (7-13) mEq/L BUN 7 (7-18) mg/dL Creatinine 0.57 (0.55-1.02) mg/dL Est Cr Clr Drug Dosing 107.90 mL/min Estimated GFR (MDRD) > 60 BUN/Creatinine Ratio 12.3 (No establ ref range) Glucose 123 H (70-99) mg/dL Lactic Acid (0.4-2.0) mmol/L Calcium 8.6 (8.5-10.1) mg/dL Total Bilirubin 0.6 (0.2-1.0) mg/dL AST 16 (15-37) U/L ALT 29 (14-59) U/L Alkaline Phosphatase 124 H (46-116) U/L Lactate Dehydrogenase 133 (81-234) U/L C-Reactive Protein 19.9 H (0.0-0.9) mg/dL B-Natriuretic Peptide 59 (0-100) pg/ml Total Protein 7.8 (6.4-8.2) g/dL Albumin 2.6 L (3.4-5.0) g/dL Globulin 5.2 Albumin/Globulin Ratio 0.50 SARS-CoV-2 RNA (OUSMANE) Negative (NEGATIVE) 02/21/21 02/21/21 Range/Units 10:17 10:17 WBC (5.0-10.0) 10^3/uL RBC (4.2-5.4) 10^6/uL Hgb (12.0-16.0) g/dL Hct (37.0-47.0) % MCV (80-100) fL MCH (27.0-34.0) pg MCHC (33.0-35.0) g/dL Plt Count (150-450) 10^3/uL Neut % (Auto) (42.2-75.2) % Lymph % (Auto) (20.5-50.1) % [place] % (Auto) (2-8) % Eos % (Auto) (1.0-3.0) % Baso % (Auto) (0.0-1.0) % D-Dimer, Quantitative 1280 H (0-400) ng/mL Sodium (136-145) mmol/L Potassium (3.5-5.1) mmol/L Chloride (98-107) mmol/L Carbon Dioxide (21-32) mmol/L Anion Gap (7-13) mEq/L BUN (7-18) mg/dL Creatinine (0.55-1.02) mg/dL Est Cr Clr Drug Dosing mL/min Estimated GFR (MDRD) BUN/Creatinine Ratio (No establ ref range) Glucose (70-99) mg/dL Lactic Acid 1.8 (0.4-2.0) mmol/L Calcium (8.5-10.1) mg/dL Total Bilirubin (0.2-1.0) mg/dL AST (15-37) U/L ALT (14-59) U/L Alkaline Phosphatase (46-116) U/L Lactate Dehydrogenase (81-234) U/L C-Reactive Protein (0.0-0.9) mg/dL B-Natriuretic Peptide (0-100) pg/ml Total Protein (6.4-8.2) g/dL Albumin (3.4-5.0) g/dL Globulin Albumin/Globulin Ratio SARS-CoV-2 RNA (OUSMANE) (NEGATIVE) Meds: Medications Discontinued Medications Generic Name Dose Route Start Last Admin Trade Name Freq PRN Reason Stop Dose Admin Azithromycin 500 mg/ Sodium 250 mls @ 250 mls/hr 02/21/21 13:09 02/21/21 13:26 Chloride IV 02/21/21 14:08 250 mls/hr ONETIME ONE Administration Iopamidol 100 ml 02/21/21 11:17 02/21/21 11:43 Iopamidol 755 Mg/Ml 100 Ml Bottle IVPUSH 02/21/21 11:18 100 ml ONETIME ONE Administration Methylprednisolone Sodium Succinate 125 mg 02/21/21 13:09 02/21/21 13:26 Methylprednisolone Sodium Succinate 125 Mg/2 Ml Sdv IVPUSH 02/21/21 13:10 125 mg ONETIME ONE Administration Ondansetron HCl 4 mg 02/21/21 13:50 02/21/21 14:15 Ondansetron 4 Mg/2 Ml Sdv IV 02/21/21 13:51 4 mg ONETIME ONE Administration - Radiology Interpretation Free Text/Narrative:: Chest CT with contrast/PE study: Name: VALENTINA WILKES Age: 40Years F Date: 02/21/2021 SSN: -- : [id number] Study: CT CHEST W CONT Requesting Physician: Ifrah Hernandez Images: 430 Addl Studies: Provided Clinical History: elevated Ddimer 1280 Contrast: With Contrast Medium: Isovue 370 Contrast Amount: 100 mL Contrast Method: Intravenous (IV) Page 1 of 2 PROCEDURE INFORMATION: Exam: CT Chest With Contrast; Diagnostic Exam date and time: 02/21/2021 11:35 AM Age: 40 years old Clinical indication: Cough; Additional info: Elevated ddimer 1280 TECHNIQUE: Imaging protocol: Diagnostic computed tomography of the chest with contrast. Radiation optimization: All CT scans at this facility use at least one of these dose optimization techniques: automated exposure control; mA and/or kV adjustment per patient size (includes targeted exams where dose is matched to clinical indication); or iterative reconstruction. Contrast material: ISOVUE 370; Contrast volume: 100 ml; Contrast route: INTRAVENOUS (IV); COMPARISON: CT Chest w Cont 03/30/2018 10:29 PM FINDINGS: Lungs: There are multiple predominantly soft tissue density pulmonary nodules, most of which are small with tree-in-bud configuration and adjacent minimal ground-glass attenuation. Largest nodule is in the right lower lobe measuring 9 mm posteriorly on series 5, image 6 additional peripheral nodular opacity in the right middle lobe at the lung base which has a more bandlike configuration but may have nodular components measuring to 10 mm as on series 5, image 76. The largest nodule on the left measures 9 mm and is subsolid. There is central bronchial wall thickening and multifocal bronchi. Bronchiectasis has increased since 03/30/2018. There are multiple geographic areas of ground-glass opacity with slight upper lobe predominance where these are larger. These generally have angular margins and vary in size. Pleural spaces: Unremarkable. No pneumothorax. No pleural effusion. Heart: Unremarkable. No cardiomegaly. No pericardial effusion. Pulmonary arteries: There is no filling defect in the pulmonary arteries bilaterally to indicate pulmonary emboli. Pulmonary arteries are normal in caliber. Aorta: Unremarkable. No aortic aneurysm. Lymph nodes: Mild mediastinal lymphadenopathy, with the largest node in the prevascular region measuring 11 mm short axis dimension, and the largest paratracheal or precarinal node measuring 15 mm short axis dimension. These nodes are similar to slightly increased in size since 03/30/2018. There is now right hilar lymphadenopathy, with the largest right hilar node measuring 1.9 cm short axis dimension. Mild left hilar lymphadenopathy is also now present, with the largest node measuring 11 mm short axis dimension. Presumed small amount of free thymic tissue in the anterior mediastinum, with a few small nodes likely present superior to this as before. Bones/joints: Multilevel degenerative disc disease in the thoracic spine. No acute fracture. Soft tissues: Unremarkable. Other findings: Limited images of the upper abdomen are unremarkable. IMPRESSION: 1. No evidence of pulmonary embolism. 2. Multiple pulmonary nodules bilaterally, most of which are small with tree-in-bud configuration and adjacent ground-glass opacity suggestive of atypical infection or endobronchial spread of infection which has increased since 03/30/2018. The largest nodule on the left is 9 mm in the left upper lobe and is subsolid, and the largest definite pulmonary nodule on the right is in the right lower lobe measuring 9 mm and is soft tissue density. These nodules are indeterminate. Recommend CT Chest at 3-6 months to confirm persistence of the nodule. If unchanged and solid component remains < 6 mm, annual CT Chest should be performed for 5 years. (Reference: Mary) 3. Multifocal geographic ground-glass opacities with upper lobe predominance.Imaging features can be seen with COVID-19 pneumonia, though are nonspecific and can occur with a variety of infectious and noninfectious processes. (Reference: [place]) 4. Mediastinal lymphadenopathy which is similar to slightly increased since 03/30/2018, and new bilateral hilar lymphadenopathy. These could be reactive from an infectious or inflammatory process. Metastases from an unknown primary tumor are less likely but not completely excluded. Recommend attention to this on follow-up imaging. References: Mary Melara, et al. Guidelines for Management of Incidental Pulmonary Nodules Detected on CT Images: From the Fleischner Society 2017. Radiology. 2017;284(1):228-243. Chip Wu, et al., Radiological Society of [place] Expert Consensus Statement on Reporting Chest CT Findings Related to COVID-19. Endorsed by the Society of Thoracic Radiology, the [place] [employer], and RSNA. Published September 18, 2019. Thank you for allowing us to participate in the care of your patient. Dictated and Authenticated by: Karla Clemente MD 02/21/2021 12:59 PM Central Time ([place] & [place]) See rad report Departure - Departure Time of Disposition: 14:44 Disposition: Home, Self-Care 01 Condition: Fair Clinical Impression: History of COVID-19 Pneumonia Qualifiers: Pneumonia type: due to unspecified organism Laterality: right Lung location: upper lobe of lung Qualified Code(s): J18.1 - Lobar pneumonia, unspecified organism - Discharge Information *PRESCRIPTION DRUG MONITORING PROGRAM REVIEWED*: No *COPY OF PRESCRIPTION DRUG MONITORING REPORT IN PATIENT CEDRIC: No Instructions: COVID-19 Vaccine Information, What You Should Know About COVID-19 to Protect Yourself and Others - CDC, Community-Acquired Pneumonia, Adult, [id number] Forms: ED Department Discharge Additional Instructions: Rx: Azithromycin 250 mg once daily for the next 4 days, begin on 02/22/2021 Rx: Prednisone 20 mg 2 tablets once daily for the next 4 days, begin Monday's 02/22/2021 Follow-up with your primary care provider in the clinic for recheck as well as schedule yourself for a recheck chest CT in 3 to 6 months Return to the ER with any worsening of problems Continue to use nebulizers and inhalers at home as prescribed Sepsis Event Note (ED) - Focused Exam Vital Signs: Vital Signs Temp Pulse Resp BP Pulse Ox 02/21/21 14:35 98.7 F 105 H 18 120/64 96 02/21/21 09:53 97.5 F 108 H 20 114/75 95 - My Orders Last 24 Hours: My Active Orders 02/21/21 09:57 Isolation [COMM] Routine 02/21/21 10:06 Blood Culture x2 Reflex Set [OM.PC] Stat 02/21/21 10:17 CULTURE BLOOD [BC] Stat CULTURE BLOOD [BC] Stat - Assessment/Plan Last 24 Hours: My Active Orders 02/21/21 09:57 Isolation [COMM] Routine 02/21/21 10:06 Blood Culture x2 Reflex Set [OM.PC] Stat 02/21/21 10:17 CULTURE BLOOD [BC] Stat CULTURE BLOOD [BC] Stat I have read and agree with the documentation that has been completed regarding this visit. By signing this record, I attest that the documentation was completed in my physical presence and is an accurate record of the encounter.
[2021-02-21 10:53] LABS: ANION GAP 12.3 mEq/L (7-13); CHLORIDE,CL 103 mmol/L (98-107); SODIUM,NA 142 mmol/L (136-145)
[2021-02-21] MEDS ORDERED: Iopamidol 755 Mg/ML 100 ML Bottle IVPUSH ONE (11:17)
--- NOTE | 2021-02-21 12:59 | CT ---
PROCEDURE INFORMATION: Exam: CT Chest With Contrast; Diagnostic Exam date and time: 02/21/2021 11:35 AM Age: 40 years old Clinical indication: Cough; Additional info: Elevated ddimer 1280 TECHNIQUE: Imaging protocol: Diagnostic computed tomography of the chest with contrast. Radiation optimization: All CT scans at this facility use at least one of these dose optimization techniques: automated exposure control; mA and/or kV adjustment per patient size (includes targeted exams where dose is matched to clinical indication); or iterative reconstruction. Contrast material: ISOVUE 370; Contrast volume: 100 ml; Contrast route: INTRAVENOUS (IV); COMPARISON: CT Chest w Cont 03/30/2018 10:29 PM FINDINGS: Lungs: There are multiple predominantly soft tissue density pulmonary nodules, most of which are small with tree-in-bud configuration and adjacent minimal ground-glass attenuation. Largest nodule is in the right lower lobe measuring 9 mm posteriorly on series 5, image 6 additional peripheral nodular opacity in the right middle lobe at the lung base which has a more bandlike configuration but may have nodular components measuring to 10 mm as on series 5, image 76. The largest nodule on the left measures 9 mm and is subsolid. There is central bronchial wall thickening and multifocal bronchi. Bronchiectasis has increased since 03/30/2018. There are multiple geographic areas of ground-glass opacity with slight upper lobe predominance where these are larger. These generally have angular margins and vary in size. Pleural spaces: Unremarkable. No pneumothorax. No pleural effusion. Heart: Unremarkable. No cardiomegaly. No pericardial effusion. Pulmonary arteries: There is no filling defect in the pulmonary arteries bilaterally to indicate pulmonary emboli. Pulmonary arteries are normal in caliber. Aorta: Unremarkable. No aortic aneurysm. Lymph nodes: Mild mediastinal lymphadenopathy, with the largest node in the prevascular region measuring 11 mm short axis dimension, and the largest paratracheal or precarinal node measuring 15 mm short axis dimension. These nodes are similar to slightly increased in size since 03/30/2018. There is now right hilar lymphadenopathy, with the largest right hilar node measuring 1.9 cm short axis dimension. Mild left hilar lymphadenopathy is also now present, with the largest node measuring 11 mm short axis dimension. Presumed small amount of free thymic tissue in the anterior mediastinum, with a few small nodes likely present superior to this as before. Bones/joints: Multilevel degenerative disc disease in the thoracic spine. No acute fracture. Soft tissues: Unremarkable. Other findings: Limited images of the upper abdomen are unremarkable. IMPRESSION: 1. No evidence of pulmonary embolism. 2. Multiple pulmonary nodules bilaterally, most of which are small with tree-in-bud configuration and adjacent ground-glass opacity suggestive of atypical infection or endobronchial spread of infection which has increased since 03/30/2018. The largest nodule on the left is 9 mm in the left upper lobe and is subsolid, and the largest definite pulmonary nodule on the right is in the right lower lobe measuring 9 mm and is soft tissue density. These nodules are indeterminate. Recommend CT Chest at 3-6 months to confirm persistence of the nodule. If unchanged and solid component remains < 6 mm, annual CT Chest should be performed for 5 years. (Reference: Mary) 3. Multifocal geographic ground-glass opacities with upper lobe predominance.Imaging features can be seen with COVID-19 pneumonia, though are nonspecific and can occur with a variety of infectious and noninfectious processes. (Reference: Chip) 4. Mediastinal lymphadenopathy which is similar to slightly increased since 03/30/2018, and new bilateral hilar lymphadenopathy. These could be reactive from an infectious or inflammatory process. Metastases from an unknown primary tumor are less likely but not completely excluded. Recommend attention to this on follow-up imaging. References: Mary H, et al. Guidelines for Management of Incidental Pulmonary Nodules Detected on CT Images: From the Fleischner Society 2017. Radiology. 2017;284(1):228-243. Chip Wu, et al., Radiological Society of [place] Expert Consensus Statement on Reporting Chest CT Findings Related to COVID-19. Endorsed by the Society of Thoracic Radiology, the [place] [employer], and RSNA. Published September 18, 2019.
[2021-02-21] MEDS ORDERED: methylPREDNISolone Sodium Succinate 125 MG/2 ML SDV IVPUSH ONE (13:09)
[2021-02-21] MEDS ORDERED: Azithromycin 500 MG in Sodium Chloride 0.9% 250 ML IV ONE (13:09)
[2021-02-21] MEDS ORDERED: Ondansetron 4 MG/2 ML SDV IV ONE (13:50)
[2021-02-21 14:38] VITALS: BP 120/64; PULSE 105
== END 2021-02-21 14:44 | disposition home or self-care (01) ==
LOC: DL.ED 09:45
DX: J18.9 Pneumonia, unspecified organism (principal); J44.9 Chronic obstructive pulmonary disease, unspecified; Z79.899 Other long term (current) drug therapy; Z20.822 Contact with and (suspected) exposure to COVID-19
CPT/HCPCS: 36415; 71260; 80053; 83605; 83615; 83880; 85025; 85379; 86140; 87040; 87635; 87804; 96365; 96375; 99285; J0456; J2405; J2930; J7050; Q9967; U0002

== ENCOUNTER 2021-02-24 10:57 | Emergency (ER) | payer OTHER ==
[2021-02-24 11:33] VITALS: BP 129/78; PULSE 119
== END 2021-02-24 11:30 | disposition left against medical advice (07) ==
LOC: DL.ED 10:57
DX: H57.12 Ocular pain, left eye (principal); Z53.21 Procedure and treatment not carried out due to patient leaving prior to being seen by health care provider

== ENCOUNTER 2021-10-02 16:19 | Inpatient (IN) | payer OTHER ==
[2021-10-02] MEDS ORDERED: Sodium Chloride 0.9% 10 ML Syringe FLUSH PRN (16:48)
[2021-10-02] MEDS ORDERED: Sodium Chloride 0.9% 1,000 ML IV ONE (16:49)
[2021-10-02] MEDS ORDERED: Albuterol/Ipratropium 3.0-0.5 MG/3 ML Neb Soln NEB ONE (16:49)
[2021-10-02 17:15] LABS: ANION GAP 15.1 mEq/L (7-13); CHLORIDE,CL 106 mmol/L (98-107); SODIUM,NA 143 mmol/L (136-145)
[2021-10-02] MEDS ORDERED: Acetaminophen/HYDROcodone 325-10 MG Tab PO ONE (18:00)
[2021-10-02] MEDS ORDERED: Potassium Chloride 10% 20 MEQ/15 ML Soln 15 ML UD Cup PO ONE (18:01)
[2021-10-02 18:23] LABS: AMPHETAMINES,URINE NEGATIVE (NEGATIVE); BARBITURATES,URINE NEGATIVE (NEGATIVE); BENZODIAZEPINE,URINE NEGATIVE (NEGATIVE); MDMA (ECSTASY), URINE NEGATIVE (NEGATIVE); METHADONE,URINE NEGATIVE (NEGATIVE); METHAMPHETAMINES,URINE NEGATIVE (NEGATIVE); OPIATES,URINE NEGATIVE (NEGATIVE); OXYCODONE,URINE NEGATIVE (NEGATIVE); PHENCYCLIDINE,URINE NEGATIVE (NEGATIVE); TCA,URINE NEGATIVE (NEGATIVE)
[2021-10-02] MEDS ORDERED: Ondansetron 4 MG Tab.DIS PO PRN (18:24)
[2021-10-02] MEDS ORDERED: Ondansetron 4 MG/2 ML SDV IVPUSH PRN (18:24)
[2021-10-02 18:27] LABS: CORONAVIRUS COVID-19 NAA NEGATIVE (NEGATIVE); RESPIRATORY SYNCYTIAL VIR NAA NEGATIVE (NEGATIVE)
[2021-10-02] MEDS ORDERED: Acetaminophen 500 MG Tab PO PRN (18:31)
[2021-10-02] MEDS ORDERED: Ibuprofen 800 MG Tab PO PRN (18:31)
[2021-10-02] MEDS ORDERED: guaiFENesin 100 MG/5 ML Soln 5 ML UD Cup PO PRN (18:31)
[2021-10-02] MEDS: Clindamycin in 0.9 % Sod Chlor 600 MG in Premix Bag 1 BAG IV SCH ×2 (19:13)
[2021-10-02] MEDS: Acetaminophen 325 MG Tab PO PRN (22:05)
[2021-10-02] MEDS: Zolpidem 5 MG Tab PO PRN (22:06)
[2021-10-03] MEDS: Clindamycin in 0.9 % Sod Chlor 600 MG in Premix Bag 1 BAG IV SCH ×8 (01:20→17:57)
[2021-10-03] MEDS: Acetaminophen 325 MG Tab PO PRN ×3 (06:25→21:28)
[2021-10-03 06:28] LABS: ANION GAP 11.5 mEq/L (7-13); CHLORIDE,CL 110 mmol/L (98-107); SODIUM,NA 144 mmol/L (136-145)
[2021-10-03] MEDS: Enoxaparin 40 MG/0.4 ML Syringe SUBCUT SCH (12:33)
[2021-10-03] MEDS: Zolpidem 5 MG Tab PO PRN (21:28)
[2021-10-04] MEDS: Clindamycin in 0.9 % Sod Chlor 600 MG in Premix Bag 1 BAG IV SCH ×4 (00:39→06:14)
[2021-10-04 06:23] LABS: CHLORIDE,CL 107 mmol/L (98-107); SODIUM,NA 140 mmol/L (136-145)
[2021-10-04 08:34] VITALS: PULSE 91
[2021-10-04] MEDS: Enoxaparin 40 MG/0.4 ML Syringe SUBCUT SCH (09:58)
[2021-10-04] MEDS ORDERED: Clindamycin in 0.9 % Sod Chlor 600 MG in Premix Bag 1 BAG IV SCH ×2 (12:00)
[2021-10-04 12:17] VITALS: BP 136/76
[2021-10-04] MEDS ORDERED: Clindamycin HCl 150 MG Cap PO SCH (18:00)
== END 2021-10-04 14:30 | disposition home or self-care (01) | DRG 603 ==
LOC: DL.ED 16:19 → DL.MS 18:24
PROVIDERS: ADMIT Hospitalist; ATTEND Hospitalist
DX: L03.116 Cellulitis of left lower limb (principal); I82.402 Acute embolism and thrombosis of unspecified deep veins of left lower extremity; I10 Essential (primary) hypertension; G43.909 Migraine, unspecified, not intractable, without status migrainosus; H54.7 Unspecified visual loss; H40.9 Unspecified glaucoma; Z20.822 Contact with and (suspected) exposure to COVID-19; J44.9 Chronic obstructive pulmonary disease, unspecified; F17.200 Nicotine dependence, unspecified, uncomplicated; Z56.0 Unemployment, unspecified; Z87.01 Personal history of pneumonia (recurrent); Z86.14 Personal history of Methicillin resistant Staphylococcus aureus infection; Z71.6 Tobacco abuse counseling
CPT/HCPCS: 0241U; 36415; 71045; 80048; 80053; 80305-QW; 81001; 81025; 83605; 85025; 85027; 86140; 87040; 93970; 94640; 96365; 99284-25; A9270-GY; J1650; J3370; J3490; J7030; J7050; J7620-GY

== ENCOUNTER 2022-01-25 12:08 | Emergency (ER) | payer OTHER ==
[2022-01-25 12:32] VITALS: BP 134/81; PULSE 63
[2022-01-25] MEDS ORDERED: Sodium Chloride 0.9% 10 ML Syringe FLUSH PRN (12:33)
[2022-01-25] MEDS ORDERED: Benzonatate 100 MG Cap PO ONE (12:33)
[2022-01-25] MEDS ORDERED: methylPREDNISolone Sodium Succinate 125 MG/2 ML SDV IVPUSH ONE (12:33)
[2022-01-25] MEDS ORDERED: Albuterol/Ipratropium 3.0-0.5 MG/3 ML Neb Soln NEB ONE (12:33)
[2022-01-25 13:14] LABS: ANION GAP 12.1 mEq/L (7-13); CHLORIDE,CL 104 mmol/L (98-107); SODIUM,NA 141 mmol/L (136-145)
[2022-01-25 13:15] LABS: ESTIMATED GFR 115 mL/min (>=60)
[2022-01-25 13:37] LABS: RESPIRATORY SYNCYTIAL VIR NAA NEGATIVE (NEGATIVE)
[2022-01-25 13:38] LABS: CORONAVIRUS COVID-19 NAA POSITIVE (NEGATIVE)
[2022-01-25] MEDS ORDERED: Albuterol/Ipratropium 3.0-0.5 MG/3 ML Neb Soln ONE (14:50)
== END 2022-01-25 15:05 | disposition home or self-care (01) ==
LOC: DL.ED 12:08
DX: U07.1 COVID-19 (principal); J44.1 Chronic obstructive pulmonary disease with (acute) exacerbation; Z86.16 Personal history of COVID-19
CPT/HCPCS: 0241U; 36415; 71045; 80053; 83605; 83880; 84484; 84703; 85025; 87040; 93010; 94640; 96374; 99284; 99285-25; A9270-GY; J2930; J3490; J7620-GY

== ENCOUNTER 2022-04-19 05:23 | Emergency (ER) | payer OTHER ==
[2022-04-19] MEDS ORDERED: Albuterol 0.083% 2.5 MG/3 ML Neb Soln NEB ONE (05:28)
[2022-04-19] MEDS ORDERED: methylPREDNISolone Sodium Succinate 125 MG/2 ML SDV IVPUSH ONE (05:29)
[2022-04-19] MEDS ORDERED: LORazepam 2 MG/ML SDV IVPUSH ONE (05:42)
[2022-04-19] MEDS ORDERED: Albuterol/Ipratropium 3.0-0.5 MG/3 ML Neb Soln NEB ONE (05:42)
[2022-04-19 05:59] VITALS: BP 142/53; PULSE 113
[2022-04-19 06:21] LABS: CHLORIDE,CL 102 mmol/L (98-107); SODIUM,NA 136 mmol/L (136-145)
[2022-04-19 06:24] LABS: ESTIMATED GFR 112 mL/min (>=60)
== END 2022-04-19 07:34 | disposition home or self-care (01) ==
LOC: DL.ED 05:23
DX: J44.1 Chronic obstructive pulmonary disease with (acute) exacerbation (principal); Z79.899 Other long term (current) drug therapy; Z86.16 Personal history of COVID-19
CPT/HCPCS: 36415; 71045; 80053; 82150; 83605; 83690; 83735; 83880; 84443; 84484; 85025; 85379; 85610; 86140; 87040; 93005; 94640; 96374; 96375; 99285; J2060; J2930; J7613-GY; J7620-GY

== ENCOUNTER 2022-05-21 13:02 | Emergency (ER) | payer OTHER ==
[2022-05-21 15:21] VITALS: BP 184/98; PULSE 95
[2022-05-21] MEDS ORDERED: Ketorolac 30 MG/ML SDV IM ONE (15:33)
== END 2022-05-21 15:49 | disposition home or self-care (01) ==
LOC: DL.ED 13:02
DX: S20.211A Contusion of right front wall of thorax, initial encounter (principal); J44.9 Chronic obstructive pulmonary disease, unspecified; E05.90 Thyrotoxicosis, unspecified without thyrotoxic crisis or storm; Z87.891 Personal history of nicotine dependence; Z86.16 Personal history of COVID-19; V49.10XA Passenger injured in collision with unspecified motor vehicles in nontraffic accident, initial encounter; Y92.410 Unspecified street and highway as the place of occurrence of the external cause
CPT/HCPCS: 71101; 96372; 99283; J1885

== ENCOUNTER 2022-06-27 04:14 | Emergency (ER) | payer OTHER ==
[2022-06-27] MEDS ORDERED: Amoxicillin 500 MG Cap PO ONE ×2 (04:15→05:02)
[2022-06-27 04:37] VITALS: BP 162/89; PULSE 95
[2022-06-27] MEDS ORDERED: Amoxicillin 500 MG Cap ONE (05:13)
== END 2022-06-27 05:18 | disposition home or self-care (01) ==
LOC: DL.ED 04:14
DX: H66.011 Acute suppurative otitis media with spontaneous rupture of ear drum, right ear (principal); J44.9 Chronic obstructive pulmonary disease, unspecified; Z87.891 Personal history of nicotine dependence
CPT/HCPCS: 87081; 87430; 99283; A9270

== ENCOUNTER 2022-11-25 18:59 | Emergency (ER) | payer OTHER ==
[2022-11-25] MEDS ORDERED: Albuterol/Ipratropium 3.0-0.5 MG/3 ML Neb Soln NEB ONE ×3 (19:19→20:31)
[2022-11-25] MEDS ORDERED: predniSONE 20 MG Tab PO ONE (19:19)
[2022-11-25] MEDS ORDERED: Sodium Chloride 0.9% 1,000 ML IV ONE (20:31)
[2022-11-25] MEDS ORDERED: Ketorolac 30 MG/ML SDV IVPUSH ONE (20:31)
[2022-11-25] MEDS ORDERED: Lidocaine 2% Viscous Solution 15 ML UD PO ONE (20:32)
[2022-11-25] MEDS ORDERED: Sodium Chloride 0.9% 10 ML Syringe FLUSH PRN (20:34)
[2022-11-25] MEDS ORDERED: Meclizine 12.5 MG Tab PO ONE (20:35)
[2022-11-25] MEDS ORDERED: Metoclopramide 10 MG/2 ML SDV IVPUSH ONE (20:35)
[2022-11-25 21:22] LABS: BASOPHILS PERCENT AUTO 0.3 % (0.0-1.0); EOSINOPHILS PERCENT AUTO 0.7 % (1.0-3.0); HEMATOCRIT 31.9 % (37.0-47.0); HEMOGLOBIN 9.5 g/dL (12.0-16.0); MEAN CORPUSCULAR HEMOGLOBIN 22.7 pg (27.0-34.0); MEAN CORPUSCULAR HGB CONC 29.8 g/dL (33.0-35.0); MEAN CORPUSCULAR VOLUME 76.1 fL (80-100); MONOCYTES PERCENT AUTO 4.1 % (2-8); NEUTROPHILS PERCENT AUTO 78.9 % (42.2-75.2); RED BLOOD CELL COUNT 4.19 10^6/uL (4.2-5.4); WHITE BLOOD CELL COUNT,WBC 6.1 10^3/uL (5.0-10.0)
[2022-11-25 21:25] LABS: PLATELET COUNT,PLT 34 10^3/uL (150-450)
[2022-11-25 21:27] LABS: ANION GAP 11.9 mEq/L (7-13); CALCIUM 7.9 mg/dL (8.5-10.1); CREATININE 0.73 mg/dL (0.55-1.02); EST CRCL DRUG DOSING (CG) 84.92 mL/min; POTASSIUM,K 2.9 mmol/L (3.5-5.1)
[2022-11-25] MEDS ORDERED: Potassium Chloride 10 MEQ Tab.ER PO ONE (22:18)
[2022-11-26 00:03] VITALS: BP 134/75; PULSE 91
== END 2022-11-25 23:59 | disposition home or self-care (01) ==
LOC: DL.ED 18:59
DX: J45.41 Moderate persistent asthma with (acute) exacerbation (principal); R51.9 Headache, unspecified; R42 Dizziness and giddiness; J02.9 Acute pharyngitis, unspecified; D69.6 Thrombocytopenia, unspecified; E87.6 Hypokalemia; J44.9 Chronic obstructive pulmonary disease, unspecified; E05.90 Thyrotoxicosis, unspecified without thyrotoxic crisis or storm; Z86.16 Personal history of COVID-19
CPT/HCPCS: 36415; 71046; 80048; 85025; 87081; 87430; 94640; 96361; 96374; 96375; 99285; A9270; J1885; J2765; J7030; J7512; 99284; J3490; J7620-GY

== ENCOUNTER 2023-05-20 19:43 | Inpatient (IN) | payer OTHER ==
[2023-05-20] MEDS ORDERED: Sodium Chloride 0.9% 10 ML Syringe FLUSH PRN ×2 (20:23→21:14)
[2023-05-20] MEDS ORDERED: Aspirin 81 MG Tab.Chew PO ONE (20:23)
[2023-05-20 20:37] LABS: BASOPHILS PERCENT AUTO 0.5 % (0.0-1.0); EOSINOPHILS PERCENT AUTO 0.2 % (1.0-3.0); HEMATOCRIT 37.3 % (37.0-47.0); HEMOGLOBIN 12.7 g/dL (12.0-16.0); LYMPHOCYTES PERCENT AUTO 17.5 % (20.5-50.1); MEAN CORPUSCULAR HEMOGLOBIN 31.1 pg (27.0-34.0); MEAN CORPUSCULAR VOLUME 91.4 fL (80-100); MONOCYTES PERCENT AUTO 7.3 % (2-8); NEUTROPHILS PERCENT AUTO 74.5 % (42.2-75.2); PLATELET COUNT,PLT 101 10^3/uL (150-450); RED BLOOD CELL COUNT 4.08 10^6/uL (4.2-5.4); WHITE BLOOD CELL COUNT,WBC 5.6 10^3/uL (5.0-10.0)
[2023-05-20 20:49] LABS: ALBUMIN 2.6 g/dL (3.4-5.0); BILIRUBIN TOTAL 5.4 mg/dL (0.2-1.0); BUN/CREATININE RATIO 9.5 (No establ ref range); CALCIUM 7.2 mg/dL (8.5-10.1); CREATININE 0.95 mg/dL (0.55-1.02); EST CRCL DRUG DOSING (CG) 61.86 mL/min
[2023-05-20 20:56] LABS: ANION GAP 19.4 mEq/L (7-13)
[2023-05-20 20:57] LABS: A/G RATIO 0.48
[2023-05-20 20:59] LABS: MAGNESIUM 0.8 mg/dL (1.8-2.4); POTASSIUM,K 2.4 mmol/L (3.5-5.1)
[2023-05-20 21:07] LABS: CORONAVIRUS COVID-19 NAA NEGATIVE (NEGATIVE); INFLUENZA A NAA NEGATIVE (NEGATIVE); INFLUENZA B NAA NEGATIVE (NEGATIVE); RESPIRATORY SYNCYTIAL VIR NAA NEGATIVE (NEGATIVE)
[2023-05-20] MEDS ORDERED: Potassium Chloride 10 MEQ Tab.ER PO ONE (21:14)
[2023-05-20] MEDS ORDERED: Ondansetron 4 MG/2 ML SDV IVPUSH ONE (21:17)
[2023-05-20] MEDS ORDERED: Magnesium Sulfate/Water 100 ML ONE (21:19)
[2023-05-20] MEDS ORDERED: diphenhydrAMINE 12.5 MG/5 ML Liquid 5 ML UD Cup PO PRN (22:16)
[2023-05-20] MEDS ORDERED: Aluminum Hydroxide/Magnesium Hydroxide/Simethicone Susp 30 ML Cup PO ONE (22:17)
[2023-05-20] MEDS ORDERED: Lidocaine 2% Viscous Solution 15 ML UD PO ONE (22:18)
[2023-05-21] MEDS ORDERED: Sodium Chloride 0.9% 1,000 ML IV ONE (00:36)
[2023-05-21] MEDS ORDERED: diphenhydrAMINE 12.5 MG/5 ML Liquid 5 ML UD Cup PO STA (02:03)
[2023-05-21] MEDS ORDERED: Potassium Chloride 10 MEQ Tab.ER PO ONE (02:03)
[2023-05-21] MEDS ORDERED: Aluminum Hydroxide/Magnesium Hydroxide/Simethicone Susp 30 ML Cup PO ONE (02:05)
[2023-05-21] MEDS ORDERED: Ondansetron 4 MG/2 ML SDV IVPUSH ONE (02:09)
[2023-05-21] MEDS ORDERED: Lidocaine 2% Viscous Solution 15 ML UD PO ONE (02:22)
[2023-05-21 05:48] LABS: ANION GAP 16.9 mEq/L (7-13); CALCIUM 6.8 mg/dL (8.5-10.1); CREATININE 1.05 mg/dL (0.55-1.02); EST CRCL DRUG DOSING (CG) 55.97 mL/min; MAGNESIUM 1.7 mg/dL (1.8-2.4); POTASSIUM,K 2.9 mmol/L (3.5-5.1)
[2023-05-21] MEDS ORDERED: Lactated Ringers 1,000 ML IV ONE (05:54)
[2023-05-21 06:07] LABS: BILIRUBIN,URINE LARGE (NEGATIVE); COLOR,URINE DARK YELLOW (YELLOW); GLUCOSE,URINE 100 (NEGATIVE); KETONES,URINE 15 (NEGATIVE); LEUKOCYTE ESTERASE,URINE LARGE (NEGATIVE); NITRITE,URINE POSITIVE (NEGATIVE); OCCULT BLOOD,URINE MODERATE (NEGATIVE); PROTEIN,URINE 100 (NEGATIVE)
[2023-05-21 06:16] LABS: AMPHETAMINES,URINE NEGATIVE (NEGATIVE); APPEARANCE,URINE CLOUDY (CLEAR); BARBITURATES,URINE NEGATIVE (NEGATIVE); BENZODIAZEPINE,URINE NEGATIVE (NEGATIVE); MDMA (ECSTASY), URINE NEGATIVE (NEGATIVE); METHADONE,URINE NEGATIVE (NEGATIVE); METHAMPHETAMINES,URINE NEGATIVE (NEGATIVE); OPIATES,URINE NEGATIVE (NEGATIVE); OXYCODONE,URINE NEGATIVE (NEGATIVE); PHENCYCLIDINE,URINE NEGATIVE (NEGATIVE); TCA,URINE NEGATIVE (NEGATIVE)
[2023-05-21 06:36] LABS: BILIRUBIN DIRECT 5.2 mg/dL (0.0-0.2); BILIRUBIN TOTAL 7.9 mg/dL (0.2-1.0)
[2023-05-21 06:47] LABS: AMORPHOUS SEDIMENT,URINE MODERATE /HPF (NOT SEEN); BACTERIA,URINE MANY /HPF (0-FEW/HPF); EPITHELIAL CELLS,URINE FEW /HPF (NOT SEEN); MUCUS,URINE MODERATE /LPF (NOT SEEN); RBC,URINE PACKED /HPF (0-5)
[2023-05-21] MEDS ORDERED: Scopalamine 1mg/3day Transdermal Patch TOP ONE (08:40)
[2023-05-21] MEDS ORDERED: Metoclopramide 10 MG/2 ML SDV IVPUSH PRN (08:40)
[2023-05-21] MEDS ORDERED: MVI, Adult with Vitamin K 10 ML, Folic Acid 1 MG, Thiamine 100 MG in Lactated Ringers 1... IV ONE ×4 (08:41)
[2023-05-21] MEDS ORDERED: Thiamine 100 MG in Sodium Chloride 0.9% 100 ML IV ONE (08:42)
[2023-05-21] MEDS ORDERED: LORazepam 0.5 MG Tab PO PRN (08:43)
[2023-05-21] MEDS ORDERED: Polyethylene Glycol 3350 Powder 17 GM Packet PO PRN (08:43)
[2023-05-21] MEDS ORDERED: HYDROmorphone 0.5 MG/0.5 ML Syringe IVPUSH PRN (08:43)
[2023-05-21] MEDS ORDERED: LORazepam 2 MG/ML SDV IV PRN (08:43)
[2023-05-21] MEDS ORDERED: Albuterol/Ipratropium 3.0-0.5 MG/3 ML Neb Soln NEB PRN (08:43)
[2023-05-21] MEDS ORDERED: Famotidine 20 MG/2 ML SDV IVPUSH ONE (08:43)
[2023-05-21] MEDS ORDERED: Naloxone 2 MG/2 ML Syringe IVPUSH PRN (08:43)
[2023-05-21] MEDS ORDERED: Pantoprazole 40 MG Vial IVPUSH ONE (08:43)
[2023-05-21] MEDS ORDERED: Magnesium Hydroxide 400 MG/5 ML Susp 30 ML Cup PO PRN (08:43)
[2023-05-21] MEDS ORDERED: Iopamidol 755 Mg/ML 100 ML Bottle IVPUSH ONE (08:49)
[2023-05-21] MEDS ORDERED: cefTRIAXone 2 GM Vial IVPUSH ONE (08:51)
[2023-05-21] MEDS: Lactated Ringers 1,000 ML IV SCH ×2 (09:23→17:16)
[2023-05-21] MEDS: Saccharomyces Boulardii (Probiotic) 250 MG Cap PO SCH ×2 (09:32→21:19)
[2023-05-21 09:38] LABS: T4 FREE 1.75 ng/dL (0.76-1.46); TSH ULTRASENSITIVE 0.11 uIU/mL (0.36-3.74)
[2023-05-21] MEDS ORDERED: Iopamidol 612 MG/ML 100 ML Bottle IVPUSH ONE (10:00)
[2023-05-21] MEDS: Sucralfate Suspension 1 GM/10 ML Cup PO SCH ×3 (13:00→21:20)
[2023-05-21] MEDS: Pantoprazole 40 MG Tab.CR PO SCH (16:15)
[2023-05-21] MEDS: Formoterol/Mometasone 200-5 MCG 8.8 GM Inhaler IH SCH (21:17)
[2023-05-21] MEDS: hydrOXYzine HCl 25 MG Tab PO PRN (21:19)
[2023-05-21] MEDS: Melatonin 3 MG Tab PO PRN (21:19)
[2023-05-21 21:25] LABS: CREATININE 0.8 mg/dL (0.55-1.02); EST CRCL DRUG DOSING (CG) 73.46 mL/min
[2023-05-22] MEDS: Levothyroxine 50 MCG Tab PO SCH (05:37)
[2023-05-22] MEDS: Pantoprazole 40 MG Tab.CR PO SCH ×2 (05:37→16:18)
[2023-05-22 06:22] LABS: BASOPHILS PERCENT AUTO 0.5 % (0.0-1.0); EOSINOPHILS PERCENT AUTO 0.5 % (1.0-3.0); HEMATOCRIT 33.2 % (37.0-47.0); HEMOGLOBIN 10.8 g/dL (12.0-16.0); LYMPHOCYTES PERCENT AUTO 23.3 % (20.5-50.1); MEAN CORPUSCULAR HEMOGLOBIN 31.3 pg (27.0-34.0); MEAN CORPUSCULAR HGB CONC 32.5 g/dL (33.0-35.0); MEAN CORPUSCULAR VOLUME 96.2 fL (80-100); MONOCYTES PERCENT AUTO 7.2 % (2-8); NEUTROPHILS PERCENT AUTO 68.5 % (42.2-75.2); PLATELET COUNT,PLT 58 10^3/uL (150-450); RED BLOOD CELL COUNT 3.45 10^6/uL (4.2-5.4); WHITE BLOOD CELL COUNT,WBC 3.7 10^3/uL (5.0-10.0)
[2023-05-22] MEDS: Sucralfate Suspension 1 GM/10 ML Cup PO SCH ×4 (06:22→20:35)
[2023-05-22] MEDS: Formoterol/Mometasone 200-5 MCG 8.8 GM Inhaler IH SCH ×3 (06:30→17:01)
[2023-05-22 06:45] LABS: ALBUMIN 2.2 g/dL (3.4-5.0); ANION GAP 10.8 mEq/L (7-13); BILIRUBIN TOTAL 8.1 mg/dL (0.2-1.0); BUN/CREATININE RATIO 7.4 (No establ ref range); C-REACTIVE PROTEIN 1.14 ng/dL (<=0.50); CALCIUM 7.2 mg/dL (8.5-10.1); CREATININE 0.81 mg/dL (0.55-1.02); EST CRCL DRUG DOSING (CG) 72.55 mL/min; MAGNESIUM 1.3 mg/dL (1.8-2.4); POTASSIUM,K 2.8 mmol/L (3.5-5.1); PROTEIN TOTAL,TP 6.4 g/dL (6.4-8.2)
[2023-05-22 06:47] LABS: A/G RATIO 0.52
[2023-05-22] MEDS: Saccharomyces Boulardii (Probiotic) 250 MG Cap PO SCH ×2 (08:51→20:35)
[2023-05-22] MEDS: cefTRIAXone 1 GM Vial IVPUSH SCH (08:55)
[2023-05-22] MEDS ORDERED: Potassium Chloride 10 MEQ Tab.ER PO ONE (19:34)
[2023-05-22] MEDS: Sennosides/Docusate Sodium 50-8.6 MG Tab PO PRN (20:35)
[2023-05-22] MEDS: hydrOXYzine HCl 25 MG Tab PO PRN (21:27)
[2023-05-22] MEDS: Melatonin 3 MG Tab PO PRN (21:27)
[2023-05-22] MEDS: Multivitamin Tab PO SCH (21:28)
[2023-05-22] MEDS: Folic Acid 1 MG Tab PO SCH (21:28)
[2023-05-22] MEDS: Acetaminophen 325 MG Tab PO PRN (21:28)
[2023-05-22] MEDS: Thiamine 100 MG Tab PO SCH (21:29)
[2023-05-23] MEDS: Formoterol/Mometasone 200-5 MCG 8.8 GM Inhaler IH SCH ×3 (05:43→17:01)
[2023-05-23] MEDS: Pantoprazole 40 MG Tab.CR PO SCH ×2 (06:04→16:08)
[2023-05-23] MEDS: Levothyroxine 50 MCG Tab PO SCH (06:04)
[2023-05-23] MEDS: Sucralfate Suspension 1 GM/10 ML Cup PO SCH ×4 (06:04→20:30)
[2023-05-23 06:32] LABS: BASOPHILS PERCENT AUTO 0.3 % (0.0-1.0); EOSINOPHILS PERCENT AUTO 1.4 % (1.0-3.0); HEMATOCRIT 29.7 % (37.0-47.0); HEMOGLOBIN 9.6 g/dL (12.0-16.0); LYMPHOCYTES PERCENT AUTO 30.3 % (20.5-50.1); MEAN CORPUSCULAR HEMOGLOBIN 31.4 pg (27.0-34.0); MEAN CORPUSCULAR HGB CONC 32.3 g/dL (33.0-35.0); MEAN CORPUSCULAR VOLUME 97.1 fL (80-100); MONOCYTES PERCENT AUTO 8.8 % (2-8); NEUTROPHILS PERCENT AUTO 59.2 % (42.2-75.2); PLATELET COUNT,PLT 81 10^3/uL (150-450); RED BLOOD CELL COUNT 3.06 10^6/uL (4.2-5.4); WHITE BLOOD CELL COUNT,WBC 2.9 10^3/uL (5.0-10.0)
[2023-05-23 06:51] LABS: A/G RATIO 0.5; ALBUMIN 1.9 g/dL (3.4-5.0); ANION GAP 8.6 mEq/L (7-13); BILIRUBIN TOTAL 5.2 mg/dL (0.2-1.0); C-REACTIVE PROTEIN 0.85 ng/dL (<=0.50); CALCIUM 7.2 mg/dL (8.5-10.1); MAGNESIUM 1.1 mg/dL (1.8-2.4); POTASSIUM,K 3.6 mmol/L (3.5-5.1)
[2023-05-23 07:04] LABS: BUN/CREATININE RATIO 10.3 (No establ ref range); EST CRCL DRUG DOSING (CG) 86.42 mL/min
[2023-05-23 07:12] LABS: CREATININE 0.68 mg/dL (0.55-1.02)
[2023-05-23 07:13] LABS: PROTEIN TOTAL,TP 5.7 g/dL (6.4-8.2)
[2023-05-23] MEDS: Thiamine 100 MG Tab PO SCH (08:52)
[2023-05-23] MEDS: Saccharomyces Boulardii (Probiotic) 250 MG Cap PO SCH ×2 (08:52→20:31)
[2023-05-23] MEDS: Potassium Chloride 10 MEQ Tab.ER PO SCH ×2 (08:52→10:42)
[2023-05-23] MEDS: cefTRIAXone 1 GM Vial IVPUSH SCH (08:52)
[2023-05-23] MEDS: Folic Acid 1 MG Tab PO SCH (08:52)
[2023-05-23] MEDS: Multivitamin Tab PO SCH (08:52)
[2023-05-23] MEDS ORDERED: Magnesium Sulfate/Water 2 GM in Premix Bag 1 BAG IV ONE ×4 (09:54→21:00)
[2023-05-23] MEDS ORDERED: Cholecalciferol (Vitamin D3) 25 MCG Tab PO ONE (09:55)
[2023-05-23] MEDS: hydrOXYzine HCl 25 MG Tab PO PRN (20:30)
[2023-05-23] MEDS: Melatonin 3 MG Tab PO PRN (20:30)
[2023-05-23] MEDS: Acetaminophen 325 MG Tab PO PRN (20:31)
[2023-05-23] MEDS: Sennosides/Docusate Sodium 50-8.6 MG Tab PO PRN (20:31)
[2023-05-24] MEDS: Formoterol/Mometasone 200-5 MCG 8.8 GM Inhaler IH SCH (05:19)
[2023-05-24] MEDS: Acetaminophen 325 MG Tab PO PRN (05:59)
[2023-05-24] MEDS: Pantoprazole 40 MG Tab.CR PO SCH (05:59)
[2023-05-24] MEDS: Sucralfate Suspension 1 GM/10 ML Cup PO SCH ×2 (06:00→10:25)
[2023-05-24] MEDS: Levothyroxine 50 MCG Tab PO SCH (06:00)
[2023-05-24 06:03] LABS: BASOPHILS PERCENT AUTO 0.8 % (0.0-1.0); EOSINOPHILS PERCENT AUTO 1.3 % (1.0-3.0); HEMATOCRIT 30.3 % (37.0-47.0); HEMOGLOBIN 9.7 g/dL (12.0-16.0); LYMPHOCYTES PERCENT AUTO 19.3 % (20.5-50.1); MEAN CORPUSCULAR HEMOGLOBIN 31.8 pg (27.0-34.0); MEAN CORPUSCULAR VOLUME 99.3 fL (80-100); MONOCYTES PERCENT AUTO 10.3 % (2-8); NEUTROPHILS PERCENT AUTO 68.3 % (42.2-75.2); PLATELET COUNT,PLT 83 10^3/uL (150-450); RED BLOOD CELL COUNT 3.05 10^6/uL (4.2-5.4)
[2023-05-24 06:20] LABS: A/G RATIO 0.49; ALBUMIN 1.9 g/dL (3.4-5.0); ANION GAP 8.2 mEq/L (7-13); BILIRUBIN TOTAL 4.6 mg/dL (0.2-1.0); BUN/CREATININE RATIO 5.6 (No establ ref range); C-REACTIVE PROTEIN 0.54 ng/dL (<=0.50); CALCIUM 7.2 mg/dL (8.5-10.1); EST CRCL DRUG DOSING (CG) 81.62 mL/min; MAGNESIUM 2.1 mg/dL (1.8-2.4); POTASSIUM,K 4.2 mmol/L (3.5-5.1)
[2023-05-24 06:33] LABS: CREATININE 0.72 mg/dL (0.55-1.02); PROTEIN TOTAL,TP 5.8 g/dL (6.4-8.2)
[2023-05-24 08:28] VITALS: BP 94/51; PULSE 80
[2023-05-24] MEDS: Multivitamin Tab PO SCH (08:47)
[2023-05-24] MEDS: Thiamine 100 MG Tab PO SCH (08:47)
[2023-05-24] MEDS: Saccharomyces Boulardii (Probiotic) 250 MG Cap PO SCH (08:47)
[2023-05-24] MEDS: Folic Acid 1 MG Tab PO SCH (08:48)
[2023-05-24] MEDS: cefTRIAXone 1 GM Vial IVPUSH SCH (08:49)
[2023-05-24] MEDS ORDERED: Cholecalciferol (Vitamin D3) 25 MCG Tab PO SCH (09:00)
== END 2023-05-24 11:40 | disposition home or self-care (01) | DRG 392 ==
LOC: DL.ED 19:43 → UNDOADMIN 20:24 → DL.MS 20:24 → UNDOADMIN 05-21 06:21 → DL.MS 05-21 06:21
PROVIDERS: ADMIT Internal Medicine; ATTEND Internal Medicine
DX: K29.20 Alcoholic gastritis without bleeding (principal); N39.0 Urinary tract infection, site not specified; E83.51 Hypocalcemia; K43.9 Ventral hernia without obstruction or gangrene; H40.9 Unspecified glaucoma; H54.7 Unspecified visual loss; H54.40 Blindness, one eye, unspecified eye; J44.9 Chronic obstructive pulmonary disease, unspecified; E03.9 Hypothyroidism, unspecified; K74.60 Unspecified cirrhosis of liver; K76.0 Fatty (change of) liver, not elsewhere classified; R07.89 Other chest pain; E87.8 Other disorders of electrolyte and fluid balance, not elsewhere classified; R73.9 Hyperglycemia, unspecified; F10.129 Alcohol abuse with intoxication, unspecified; Y90.1 Blood alcohol level of 20-39 mg/100 ml; E87.6 Hypokalemia; E86.0 Dehydration; E83.42 Hypomagnesemia; B96.20 Unspecified Escherichia coli [E. coli] as the cause of diseases classified elsewhere; B96.1 Klebsiella pneumoniae [K. pneumoniae] as the cause of diseases classified elsewhere; G62.9 Polyneuropathy, unspecified; E63.9 Nutritional deficiency, unspecified; Z79.51 Long term (current) use of inhaled steroids; Z79.899 Other long term (current) drug therapy; Z98.1 Arthrodesis status; Z91.148 Patient's other noncompliance with medication regimen for other reason; Z98.890 Other specified postprocedural states; Z86.16 Personal history of COVID-19; Z87.891 Personal history of nicotine dependence; Z56.0 Unemployment, unspecified
CPT/HCPCS: 0241U; 36415; 70450; 71045; 72125; 72131; 74177; 80048; 80053; 80305-QW; 80307; 81001; 81025; 82247; 82248; 82306; 83735; 84439; 84443; 84484; 85025; 85379; 86140; 87086; 87088; 87186; 93005; 93010; 94010; 94667; 96361; 96374; 96376; 99222; 99232; 99238; 99285; 99285-25; A9270-GY; C9113; J0696; J2405; J3411; J3475; J3490; J7030; J7120; Q9967

== ENCOUNTER 2023-07-11 13:32 | Emergency (ER) | payer OTHER ==
[2023-07-11 14:24] VITALS: BP 124/86; PULSE 118
== END 2023-07-11 15:20 | disposition home or self-care (01) ==
LOC: DL.ED 13:32
DX: H44.002 Unspecified purulent endophthalmitis, left eye (principal); J44.9 Chronic obstructive pulmonary disease, unspecified; Z86.16 Personal history of COVID-19; Z79.899 Other long term (current) drug therapy
CPT/HCPCS: 99283

== ENCOUNTER 2023-07-12 16:00 | Inpatient (IN) | payer OTHER ==
[2023-07-12] MEDS ORDERED: Sodium Chloride 0.9% 10 ML Syringe FLUSH PRN (16:14)
[2023-07-12] MEDS ORDERED: Sodium Chloride 0.9% 1,000 ML IV ONE (16:21)
[2023-07-12 16:41] LABS: BASOPHILS PERCENT AUTO 0.7 % (0.0-1.0); EOSINOPHILS PERCENT AUTO 0.2 % (1.0-3.0); HEMATOCRIT 34.1 % (37.0-47.0); HEMOGLOBIN 11.6 g/dL (12.0-16.0); LYMPHOCYTES PERCENT AUTO 18.8 % (20.5-50.1); MEAN CORPUSCULAR HEMOGLOBIN 33.3 pg (27.0-34.0); MONOCYTES PERCENT AUTO 5.3 % (2-8); PLATELET COUNT,PLT 48 10^3/uL (150-450); RED BLOOD CELL COUNT 3.48 10^6/uL (4.2-5.4); WHITE BLOOD CELL COUNT,WBC 5.5 10^3/uL (5.0-10.0)
[2023-07-12 16:59] LABS: INR 1.4 (0.9-1.2); PROTHROMBIN TIME 13.8 SEC (9.0-12.0)
[2023-07-12 17:03] LABS: ALBUMIN 2.2 g/dL (3.4-5.0); ANION GAP 20.2 mEq/L (7-13); BILIRUBIN TOTAL 8.1 mg/dL (0.2-1.0); BUN/CREATININE RATIO 7.6 (No establ ref range); CALCIUM 6.6 mg/dL (8.5-10.1); CREATININE 1.05 mg/dL (0.55-1.02); EST CRCL DRUG DOSING (CG) 58.43 mL/min; POTASSIUM,K 3.2 mmol/L (3.5-5.1); PROTEIN TOTAL,TP 7.6 g/dL (6.4-8.2)
[2023-07-12 17:05] LABS: A/G RATIO 0.41
[2023-07-12 17:26] LABS: MAGNESIUM 0.7 mg/dL (1.8-2.4)
[2023-07-12] MEDS ORDERED: Magnesium Sulfate/Water 2 GM in Premix Bag 1 BAG IV ONE (17:28)
[2023-07-12] MEDS ORDERED: HYDROmorphone 0.5 MG/0.5 ML Syringe IVPUSH ONE (17:29)
[2023-07-12] MEDS ORDERED: MVI, Adult with Vitamin K 10 ML, Folic Acid 1 MG, Thiamine 100 MG in Lactated Ringers 1... IV ONE ×4 (17:30)
[2023-07-12 17:39] LABS: AMPHETAMINES,URINE NEGATIVE (NEGATIVE); BARBITURATES,URINE NEGATIVE (NEGATIVE); BENZODIAZEPINE,URINE NEGATIVE (NEGATIVE); MDMA (ECSTASY), URINE NEGATIVE (NEGATIVE); METHADONE,URINE NEGATIVE (NEGATIVE); METHAMPHETAMINES,URINE POSITIVE (NEGATIVE); OPIATES,URINE NEGATIVE (NEGATIVE); OXYCODONE,URINE NEGATIVE (NEGATIVE); PHENCYCLIDINE,URINE NEGATIVE (NEGATIVE); TCA,URINE NEGATIVE (NEGATIVE)
[2023-07-12] MEDS ORDERED: Thiamine 200 MG/2 ML MDV ONE (17:39)
[2023-07-12 17:43] LABS: BILIRUBIN,URINE LARGE (NEGATIVE); GLUCOSE,URINE 100 (NEGATIVE); KETONES,URINE 15 (NEGATIVE); LEUKOCYTE ESTERASE,URINE LARGE (NEGATIVE); NITRITE,URINE POSITIVE (NEGATIVE); OCCULT BLOOD,URINE NEGATIVE (NEGATIVE); PROTEIN,URINE >=300 (NEGATIVE); UROBILINOGEN,URINE >=8.0 mg/dL (0.2-1.0)
[2023-07-12 17:44] LABS: APPEARANCE,URINE CLOUDY (CLEAR)
[2023-07-12 17:45] LABS: COLOR,URINE AMBER (YELLOW)
[2023-07-12 17:47] LABS: EPITHELIAL CELLS,URINE MODERATE /HPF (NOT SEEN); RBC,URINE 0-5 /HPF (0-5)
[2023-07-12 17:48] LABS: BACTERIA,URINE MODERATE /HPF (0-FEW/HPF); MUCUS,URINE FEW /LPF (NOT SEEN)
[2023-07-12 17:49] LABS: HYALINE CASTS,URINE RARE
[2023-07-12] MEDS ORDERED: Folic Acid 1 MG Tab PO ONE (17:52)
[2023-07-12] MEDS ORDERED: cefTRIAXone 1 GM Vial IVPUSH ONE (18:00)
[2023-07-12] MEDS ORDERED: Ondansetron 4 MG/2 ML SDV IVPUSH PRN (19:10)
[2023-07-12] MEDS ORDERED: Naloxone 2 MG/2 ML Syringe IVPUSH PRN (19:10)
[2023-07-12] MEDS ORDERED: hydrALAZINE 20 MG/ML SDV IVPUSH PRN (19:10)
[2023-07-12] MEDS ORDERED: Magnesium Hydroxide 400 MG/5 ML Susp 30 ML Cup PO PRN (19:10)
[2023-07-12] MEDS ORDERED: Sennosides/Docusate Sodium 50-8.6 MG Tab PO PRN (19:10)
[2023-07-12] MEDS ORDERED: Ibuprofen 400 MG Tab PO PRN (19:10)
[2023-07-12] MEDS ORDERED: Albuterol/Ipratropium 3.0-0.5 MG/3 ML Neb Soln NEB PRN (19:10)
[2023-07-12] MEDS ORDERED: Metoprolol Tartrate 5 MG/5 ML SDV IVPUSH PRN (19:10)
[2023-07-12] MEDS ORDERED: Polyethylene Glycol 3350 Powder 17 GM Packet PO PRN (19:10)
[2023-07-12] MEDS: HYDROmorphone 1 MG/ML Syringe IVPUSH PRN ×2 (19:43→23:57)
[2023-07-12] MEDS ORDERED: Calcium Gluconate 1 GM in Sodium Chloride 0.9% 100 ML IV ONE (20:22)
[2023-07-12] MEDS ORDERED: Potassium Chloride 10 MEQ Tab.ER PO ONE (20:24)
[2023-07-12] MEDS ORDERED: Potassium Chloride 20 MEQ in Premix Bag 1 BAG IV ONE (20:24)
[2023-07-12] MEDS ORDERED: Sodium Chloride 0.9% 1,000 ML IV SCH (20:30)
[2023-07-12] MEDS ORDERED: Non-Formulary Medication 1 Each (Hydroxyzine Hcl 50 MG Tablet) PO PRN (20:43)
[2023-07-12] MEDS: Saccharomyces Boulardii (Probiotic) 250 MG Cap PO SCH (20:47)
[2023-07-12] MEDS: Temazepam 15 MG Cap PO PRN (20:47)
[2023-07-12] MEDS: hydrOXYzine HCl 10 MG Tab PO PRN (20:48)
[2023-07-12] MEDS ORDERED: Formoterol/Mometasone 200-5 MCG 8.8 GM Inhaler IH SCH (21:00)
[2023-07-12] MEDS: Ciprofloxacin in D5W 200 MG in Premix Bag 1 BAG IV SCH ×2 (21:03)
[2023-07-12] MEDS: Magnesium Sulfate/Water 2 GM in Premix Bag 1 BAG IV SCH (21:03)
[2023-07-12] MEDS: Sucralfate Suspension 1 GM/10 ML Cup PO SCH (21:56)
[2023-07-12] MEDS: Moxifloxacin 0.5% Ophth Soln 3 ML Bottle EYELF SCH ×2 (22:16→23:59)
[2023-07-12] MEDS: prednisoLONE Acetate 1% Ophth Susp 5 ML Bottle EYELF SCH ×2 (22:16→23:59)
[2023-07-12] MEDS: hydrOXYzine HCl 25 MG Tab PO PRN (22:17)
[2023-07-12] MEDS: oxyCODONE 5 MG Tab PO PRN (22:17)
[2023-07-12] MEDS: Atropine 1% Ophth Soln 5 ML Bottle EYELF SCH (23:59)
[2023-07-13] MEDS: Magnesium Sulfate/Water 2 GM in Premix Bag 1 BAG IV SCH ×2 (02:30→08:08)
[2023-07-13] MEDS: prednisoLONE Acetate 1% Ophth Susp 5 ML Bottle EYELF SCH ×11 (02:32→22:23)
[2023-07-13] MEDS: Moxifloxacin 0.5% Ophth Soln 3 ML Bottle EYELF SCH ×11 (02:32→22:24)
[2023-07-13] MEDS: hydrOXYzine HCl 10 MG Tab PO PRN ×3 (02:51→19:59)
[2023-07-13] MEDS: HYDROmorphone 1 MG/ML Syringe IVPUSH PRN ×4 (04:39→20:29)
[2023-07-13] MEDS: oxyCODONE 5 MG Tab PO PRN ×3 (05:54→19:59)
[2023-07-13] MEDS: Pantoprazole 40 MG Tab.CR PO SCH ×2 (05:54→16:10)
[2023-07-13] MEDS ORDERED: Levothyroxine 50 MCG Tab PO SCH (06:00)
[2023-07-13] MEDS: Formoterol/Mometasone 200-5 MCG 8.8 GM Inhaler IH SCH ×3 (06:15→17:03)
[2023-07-13 06:37] LABS: BASOPHILS PERCENT AUTO 0.4 % (0.0-1.0); EOSINOPHILS PERCENT AUTO 0.5 % (1.0-3.0); HEMATOCRIT 32.5 % (37.0-47.0); HEMOGLOBIN 10.6 g/dL (12.0-16.0); LYMPHOCYTES PERCENT AUTO 15.5 % (20.5-50.1); MEAN CORPUSCULAR HEMOGLOBIN 32.9 pg (27.0-34.0); MEAN CORPUSCULAR HGB CONC 32.6 g/dL (33.0-35.0); MEAN CORPUSCULAR VOLUME 100.9 fL (80-100); MONOCYTES PERCENT AUTO 8.4 % (2-8); NEUTROPHILS PERCENT AUTO 75.2 % (42.2-75.2); PLATELET COUNT,PLT 54 10^3/uL (150-450); RED BLOOD CELL COUNT 3.22 10^6/uL (4.2-5.4); WHITE BLOOD CELL COUNT,WBC 8.4 10^3/uL (5.0-10.0)
[2023-07-13 07:09] LABS: LACTIC ACID 2.4 mmol/L (0.4-2.0)
[2023-07-13 07:12] LABS: A/G RATIO 0.42; ALBUMIN 2.1 g/dL (3.4-5.0); ANION GAP 15.9 mEq/L (7-13); BILIRUBIN TOTAL 10.6 mg/dL (0.2-1.0); C-REACTIVE PROTEIN 0.77 ng/dL (<=0.50); CALCIUM 6.5 mg/dL (8.5-10.1); CREATININE 1.15 mg/dL (0.55-1.02); EST CRCL DRUG DOSING (CG) 53.35 mL/min; MAGNESIUM 2.5 mg/dL (1.8-2.4); POTASSIUM,K 3.9 mmol/L (3.5-5.1); PROTEIN TOTAL,TP 7.1 g/dL (6.4-8.2)
[2023-07-13] MEDS: Sucralfate Suspension 1 GM/10 ML Cup PO SCH ×5 (07:26→20:00)
[2023-07-13] MEDS: Atropine 1% Ophth Soln 5 ML Bottle EYELF SCH ×2 (08:08→16:11)
[2023-07-13] MEDS: Saccharomyces Boulardii (Probiotic) 250 MG Cap PO SCH ×2 (08:13→20:00)
[2023-07-13] MEDS: Ciprofloxacin in D5W 200 MG in Premix Bag 1 BAG IV SCH ×6 (08:22→20:00)
[2023-07-13] MEDS ORDERED: Calcium Gluconate 10% 1 GM/10 ML SDV IV ONE (08:27)
[2023-07-13] MEDS ORDERED: Folic Acid 1 MG Tab PO SCH (09:00)
[2023-07-13] MEDS ORDERED: Cholecalciferol (Vitamin D3) 25 MCG Tab PO SCH (09:00)
[2023-07-13] MEDS ORDERED: Thiamine 100 MG Tab PO SCH (09:00)
[2023-07-13] MEDS ORDERED: Multivitamin Tab PO SCH (09:00)
[2023-07-13] MEDS ORDERED: Phytonadione 5 MG Tab PO SCH (09:00)
[2023-07-13] MEDS: Cholestyramine/Sucrose Powder 4 GM Packet PO SCH ×3 (09:56→19:59)
[2023-07-13] MEDS: Temazepam 15 MG Cap PO PRN (19:59)
[2023-07-13] MEDS: hydrOXYzine HCl 25 MG Tab PO PRN (19:59)
[2023-07-14 03:05] LABS: BASOPHILS PERCENT AUTO 0.4 % (0.0-1.0); EOSINOPHILS PERCENT AUTO 0.9 % (1.0-3.0); HEMATOCRIT 28.2 % (37.0-47.0); HEMOGLOBIN 9.2 g/dL (12.0-16.0); LYMPHOCYTES PERCENT AUTO 13.5 % (20.5-50.1); MEAN CORPUSCULAR HEMOGLOBIN 33.3 pg (27.0-34.0); MEAN CORPUSCULAR HGB CONC 32.6 g/dL (33.0-35.0); MEAN CORPUSCULAR VOLUME 102.2 fL (80-100); MONOCYTES PERCENT AUTO 10.9 % (2-8); NEUTROPHILS PERCENT AUTO 74.3 % (42.2-75.2); PLATELET COUNT,PLT 25 10^3/uL (150-450); RED BLOOD CELL COUNT 2.76 10^6/uL (4.2-5.4); WHITE BLOOD CELL COUNT,WBC 5.4 10^3/uL (5.0-10.0)
[2023-07-14 03:20] LABS: A/G RATIO 0.44; ALBUMIN 1.8 g/dL (3.4-5.0); ANION GAP 13.3 mEq/L (7-13); BILIRUBIN TOTAL 11.2 mg/dL (0.2-1.0); C-REACTIVE PROTEIN 1.84 ng/dL (<=0.50); CALCIUM 7.3 mg/dL (8.5-10.1); MAGNESIUM 1.7 mg/dL (1.8-2.4); POTASSIUM,K 3.3 mmol/L (3.5-5.1); PROTEIN TOTAL,TP 5.9 g/dL (6.4-8.2)
[2023-07-14] MEDS: prednisoLONE Acetate 1% Ophth Susp 5 ML Bottle EYELF SCH ×2 (03:32→04:04)
[2023-07-14] MEDS: Atropine 1% Ophth Soln 5 ML Bottle EYELF SCH (03:32)
[2023-07-14] MEDS: Moxifloxacin 0.5% Ophth Soln 3 ML Bottle EYELF SCH ×2 (03:33→04:04)
[2023-07-14 03:39] LABS: BUN/CREATININE RATIO 8.9 (No establ ref range); CREATININE 0.9 mg/dL (0.55-1.02); EST CRCL DRUG DOSING (CG) 68.16 mL/min
[2023-07-14] MEDS: oxyCODONE 5 MG Tab PO PRN (04:03)
[2023-07-14] MEDS: hydrOXYzine HCl 10 MG Tab PO PRN (04:03)
[2023-07-14 04:24] VITALS: BP 92/63; PULSE 92
== END 2023-07-14 04:20 | disposition home or self-care (01) | DRG 641 ==
LOC: DL.ED 16:00 → DL.MS 18:07
PROVIDERS: ADMIT Internal Medicine; ATTEND Internal Medicine
DX: E83.42 Hypomagnesemia (principal); D68.9 Coagulation defect, unspecified; E87.1 Hypo-osmolality and hyponatremia; E87.20 Acidosis, unspecified; N39.0 Urinary tract infection, site not specified; H44.002 Unspecified purulent endophthalmitis, left eye; R07.89 Other chest pain; M94.0 Chondrocostal junction syndrome [Tietze]; H40.9 Unspecified glaucoma; H54.40 Blindness, one eye, unspecified eye; J44.9 Chronic obstructive pulmonary disease, unspecified; K74.60 Unspecified cirrhosis of liver; D63.8 Anemia in other chronic diseases classified elsewhere; E03.9 Hypothyroidism, unspecified; E87.6 Hypokalemia; D69.6 Thrombocytopenia, unspecified; K76.9 Liver disease, unspecified; F15.10 Other stimulant abuse, uncomplicated; I10 Essential (primary) hypertension; F10.229 Alcohol dependence with intoxication, unspecified; Y90.5 Blood alcohol level of 100-119 mg/100 ml; E86.0 Dehydration; E83.51 Hypocalcemia; R73.9 Hyperglycemia, unspecified; Z98.890 Other specified postprocedural states; Z79.890 Hormone replacement therapy; Z98.1 Arthrodesis status; Z79.51 Long term (current) use of inhaled steroids; Z79.899 Other long term (current) drug therapy; Z91.148 Patient's other noncompliance with medication regimen for other reason; Z90.49 Acquired absence of other specified parts of digestive tract; Z56.0 Unemployment, unspecified
CPT/HCPCS: 36415; 70450; 71045; 80053; 80305-QW; 80307; 81001; 83605; 83735; 84484; 85025; 85379; 85610; 86140; 87086; 87088; 87186; 93005; 93010; 94010; 94060; 94664; 94667; 94668; 99222; 99232; 99238; 99284; A9270-GY; J0612; J0696; J0744; J1170; J3411; J3475; J3480; J3490; J7030; J7120

== ENCOUNTER 2023-08-23 21:12 | Emergency (ER) | payer OTHER | END 2023-08-23 21:17 | disposition EXP | LOC: DL.ED 21:12 | DX: Z79.899 Other long term (current) drug therapy; J44.9 Chronic obstructive pulmonary disease, unspecified; Z86.16 Personal history of COVID-19; Z90.49 Acquired absence of other specified parts of digestive tract | CPT/HCPCS: 92950; 99284-25; 99285 ==